=== PATIENT | male | born 1950 | race Caucasian/White ===

== ENCOUNTER 2018-02-20 07:39 | Outpatient (CLI) | payer MEDICARE, OTHER ==
[2018-02-20 12:43] LABS: BASOPHILS % (AUTO) 0.7 %; EOSINOPHILS # (AUTO) 0.3 10^3/uL (0.0-0.7); EOSINOPHILS % (AUTO) 3.5 %; HGB - HEMOGLOBIN 14.3 g/dL (14.0-18.0); LYMPHOCYTES # (AUTO) 1.7 10^3/uL (1.5-3.5); LYMPHOCYTES % (AUTO) 24.1 %; MEAN CORPUSCULAR HEMOGLOBIN 30.9 pg (27.0-31.0); MEAN CORPUSCULAR HGB CONC 32.9 g/dL (32.0-36.0); MEAN CORPUSCULAR VOLUME 93.9 fL (80.0-94.0); MEAN PLATELET VOLUME 9.4 fL (7.4-11.4); MONOCYTES # (AUTO) 0.6 10^3/uL (0.0-1.0); MONOCYTES % (AUTO) 8.7 %; NEUTROPHILS # (AUTO) 4.5 10^3/uL (1.5-6.6); PLT - PLATELET COUNT 224 10^3/uL (130-450); RED BLOOD COUNT 4.61 10^6/uL (4.70-6.10); RED CELL DISTRIBUTION WIDTH 13.8 % (12.0-15.0); WHITE BLOOD COUNT 7.2 x10^3/uL (4.8-10.8)
[2018-02-20 12:46] LABS: ALBUMIN 3.9 g/dL (3.2-5.5); ALKALINE PHOSPHATASE 95 IU/L (42-121); ALT ALANINE AMINOTRANSFERASE 27 IU/L (10-60); AST ASPARTATE AMINOTRANSFERASE 23 IU/L (10-42); BILIRUBIN,TOTAL 0.8 mg/dL (0.2-1.0); BUN - BLOOD UREA NITROGEN 16 mg/dL (6-20); CALCIUM 8.9 mg/dL (8.5-10.3); CARBON DIOXIDE - CO2 25 mmol/L (21-32); CHLORIDE 101 mmol/L (101-111); CHOL/HDL RATIO 3.8 (<5.0); CHOLESTEROL 205 mg/dL; CREATININE 0.8 mg/dL (0.6-1.2); GFR - MDRD 97 (>89); GLUCOSE 110 mg/dL (70-100); HDL CHOLESTEROL 54 mg/dL; LDL CHOLESTEROL,CALCULATED 115 mg/dL; LDL/HDL RATIO 2.1 (<3.6); SODIUM 133 mmol/L (135-145); TOTAL PROTEIN 7.7 g/dL (6.7-8.2); VLDL CHOLESTEROL 36 mg/dL
== END 2018-02-20 07:40 | disposition home or self-care (01) ==
LOC: LAB.WCP 07:39
PROVIDERS: ATTEND Family Medicine
DX: I10 Essential (primary) hypertension (principal); Z12.5 Encounter for screening for malignant neoplasm of prostate
CPT/HCPCS: 36415; 80053; 80061; 84443; 85025; G0103; 83721; 84153

== ENCOUNTER 2019-09-09 09:14 | Outpatient (CLI) | payer MEDICARE, OTHER ==
--- NOTE | 2019-09-09 11:27 | CT Report ---
Reason: DIPLOPIA, DYSPHAGIA Procedure Date: 09/09/2019 Accession Number: [id number] / [id number] Procedure: CT - HEAD WO CPT Code: Final Report FULL RESULT: EXAM: CT HEAD EXAM DATE: 09/09/2019 09:33 AM. CLINICAL HISTORY: DIPLOPIA, DYSPHAGIA. COMPARISON: None. TECHNIQUE: Multiaxial CT images were obtained from the foramen magnum to the vertex. Reformats: Sagittal and coronal. IV contrast: None. In accordance with CT protocol optimization, one or more of the following dose reduction techniques were utilized for this exam: automated exposure control, adjustment of mA and/or KV based on patient size, or use of iterative reconstructive technique. FINDINGS: Parenchyma: No intraparenchymal hemorrhage. No evidence of mass, midline shift, or CT findings of infarction. Juárez-white differentiation is distinct. Moderate patchy hypodensity in the periventricular white matter and centrum semiovale, nonspecific but probably chronic microvascular ischemic change. Extraaxial Spaces: Normal for age. No subdural or epidural collections identified. Ventricles: Normal in size and position. Sinuses and Orbits: Imaged paranasal sinuses, orbits, and mastoids show no significant abnormality. Bones: No evidence of fracture or calvarial defect. Other: Intracranial internal carotid and vertebral artery calcifications are present. IMPRESSION: 1. No definite acute intracranial abnormality. 2. Probable chronic microvascular ischemic changes as noted above. [facility]
== END 2019-09-09 09:15 | disposition home or self-care (01) ==
LOC: DI 09:14
PROVIDERS: ATTEND Family Medicine
DX: H53.2 Diplopia (principal); R13.10 Dysphagia, unspecified
CPT/HCPCS: 70450

== ENCOUNTER 2019-09-23 09:49 | Outpatient (CLI) | payer MEDICARE, OTHER ==
--- NOTE | 2019-09-23 12:25 | XRAY Report ---
Reason: DYSPHAGIA Procedure Date: 09/23/2019 Accession Number: [id number] / [id number] Procedure: FL - Modified Barium Swallow W/SP CPT Code: Final Report FULL RESULT: EXAM: MODIFIED BARIUM SWALLOW EXAM DATE: 09/23/2019 10:34 AM. CLINICAL HISTORY: DYSPHAGIA. COMPARISON: None. TECHNIQUE: Under the direction of speech pathology, patient swallowed various consistencies of barium under lateral fluoroscopic observation of the neck. Fluoroscopy Time: 1 minute 5 seconds. Number of Images: 104. FINDINGS: Swallowing Mechanism: Normal oral phase and swallowing reflex. Airway Protection: Normal epiglottic motion. No episodes of tracheal penetration or aspiration with all consistencies of barium. Pharynx: Normal. No significant vallecular or piriform sinus contrast pooling. Other: None. IMPRESSION: Normal modified barium swallow. No aspiration identified. See formal speech pathology report. [facility]
== END 2019-09-23 09:50 | disposition home or self-care (01) ==
LOC: DI 09:49
PROVIDERS: ATTEND Family Medicine
DX: R13.10 Dysphagia, unspecified (principal)
CPT/HCPCS: 74230

== ENCOUNTER 2020-06-22 16:39 | Outpatient (CLI) | payer MEDICARE, OTHER | END 2020-06-22 16:40 | disposition home or self-care (01) | LOC: COV 16:39 | PROVIDERS: ATTEND Family Medicine | DX: M79.10 Myalgia, unspecified site (principal); R09.81 Nasal congestion; Z20.828 Contact with and (suspected) exposure to other viral communicable diseases ==

== ENCOUNTER 2020-10-24 07:47 | Outpatient (CLI) | payer MEDICARE, OTHER ==
--- NOTE | 2020-10-24 10:53 | CT Report ---
PROCEDURE: Low Dose Lung Cancer Screen INDICATIONS: FORMER SMOKER TECHNIQUE: Noncontrast low-dose 5 mm thick sections acquired from the pulmonary apices to the posterior costophr enic angles. 7 mm thick coronal and sagittal MIP reformats were then acquired. For radiation dose r eduction, the following was used: automated exposure control, adjustment of mA and/or kV according t o patient size. COMPARISON: None. FINDINGS: Image quality: Excellent. Lungs and pleura: No pulmonary nodules. No focal infiltrates. No pleural fluid. Mediastinum: Heart size is normal. Moderately advanced coronary artery calcifications. No pericardia l effusion. No mediastinal adenopathy by size criteria. Thoracic aorta and central pulmonary arteri es are normal in size. Esophagus is normal in caliber. No hiatal hernia. Bones and chest wall: There is subtle lucency in the posterior superior aspect of the T11 vertebral b eddie, of uncertain etiology. No vertebral body compression fractures. No axillary or supraclavicular adenopathy by size criteria. The thyroid is normal in size. Abdomen: Visualized upper abdomen solid organs and bowel loops appear normal in the absence of contr ast. IMPRESSION: 1. LungRads category 1: Negative. No nodules and/or definitely benign nodules. 2. Annual low-dose noncontrast CT of the chest is recommended for lung cancer screening. 3. Clinically significant or potentially clinically significant findings (nonlung cancer): Moderately advanced coronary artery calcifications. Subtle lucency in posterior aspect of the T11 vertebral bod y. Comment: Recommend thoracic spine MRI to better evaluate the lucency in the posterior aspect of the T 11 vertebral body. Reviewed by: Wyatt Barraza MD on 10/24/2020 9:51 AM [facility] Approved by: Wyatt Barraza MD on 10/24/2020 9:51 AM [facility] Station ID: [id number]
== END 2020-10-24 07:48 | disposition home or self-care (01) ==
LOC: DI 07:47
PROVIDERS: ATTEND Family Medicine
DX: Z12.2 Encounter for screening for malignant neoplasm of respiratory organs (principal); Z87.891 Personal history of nicotine dependence

== ENCOUNTER 2021-01-07 08:00 | Outpatient (CLI) | payer MEDICARE, OTHER ==
[2021-01-07 17:49] LABS: BASOPHILS # (AUTO) 0.1 10^3/uL (0.0-0.1); BASOPHILS % (AUTO) 0.7 %; EOSINOPHILS # (AUTO) 0.4 10^3/uL (0.0-0.7); EOSINOPHILS % (AUTO) 3.6 %; HCT - HEMATOCRIT 44.7 % (42.0-52.0); HGB - HEMOGLOBIN 14.3 g/dL (14.0-18.0); LYMPHOCYTES % (AUTO) 17.5 %; MEAN CORPUSCULAR HEMOGLOBIN 30.1 pg (27.0-31.0); MEAN CORPUSCULAR VOLUME 94.1 fL (80.0-94.0); MEAN PLATELET VOLUME 11.1 fL (7.4-11.4); MONOCYTES # (AUTO) 0.8 10^3/uL (0.0-1.0); MONOCYTES % (AUTO) 6.9 %; NEUTROPHILS % (AUTO) 70.8 %; PLT - PLATELET COUNT 232 10^3/uL (130-450); RED BLOOD COUNT 4.75 10^6/uL (4.70-6.10); RED CELL DISTRIBUTION WIDTH 13.5 % (12.0-15.0); WHITE BLOOD COUNT 11.3 x10^3/uL (4.8-10.8)
[2021-01-07 18:13] LABS: ALBUMIN 4.1 g/dL (3.2-5.5); ALBUMIN/GLOBULIN RATIO 1.1 (1.0-2.2); ALKALINE PHOSPHATASE 97 IU/L (42-121); ALT ALANINE AMINOTRANSFERASE 26 IU/L (10-60); AST ASPARTATE AMINOTRANSFERASE 21 IU/L (10-42); BILIRUBIN,TOTAL 0.9 mg/dL (0.2-1.0); BUN - BLOOD UREA NITROGEN 20 mg/dL (6-20); CALCIUM 9.1 mg/dL (8.5-10.3); CARBON DIOXIDE - CO2 26 mmol/L (21-32); CHLORIDE 104 mmol/L (101-111); CHOL/HDL RATIO 2.6 (<5.0); CHOLESTEROL 138 mg/dL; CREATININE 0.7 mg/dL (0.6-1.2); GFR - MDRD 112 (>89); GLUCOSE 91 mg/dL (70-100); HDL CHOLESTEROL 54 mg/dL; LDL CHOLESTEROL,CALCULATED 72 mg/dL; LDL/HDL RATIO 1.3 (<3.6); POTASSIUM 4.8 mmol/L (3.5-5.0); SODIUM 139 mmol/L (135-145); TOTAL PROTEIN 7.7 g/dL (6.7-8.2); TRIGLYCERIDES 59 mg/dL; VLDL CHOLESTEROL 12 mg/dL
[2021-01-07 19:51] LABS: ESTIMATED AVERAGE GLUCOSE 97 mg/dL (70-100)
== END 2021-01-07 23:59 | disposition home or self-care (01) ==
LOC: LAB.WCP 08:00
PROVIDERS: ATTEND Family Medicine
DX: E78.5 Hyperlipidemia, unspecified (principal); R73.01 Impaired fasting glucose; Z12.5 Encounter for screening for malignant neoplasm of prostate; I10 Essential (primary) hypertension
CPT/HCPCS: 36415; 80053; 80061; 83036; 85025; G0103; 83721; 84153

== ENCOUNTER 2021-04-02 07:59 | Day surgery (SDC) | payer MEDICARE, OTHER ==
[~2021-04-02 07:59] MED LIST: LACTATED RINGERS 1,000 ML IV ONE
[2021-04-02] MEDS ORDERED: MIDAZOLAM 2 MG/2 ML VIAL ONE ×2 (08:49→08:50)
[2021-04-02] MEDS ORDERED: fentaNYL 250 MCG/5 ML VIAL ONE (08:50)
--- NOTE | 2021-04-02 09:04 | HISTORY & PHYSICAL EXAMINATION ---
Chief Complaint - Chief Complaint Chief Complaint: here for colon cancer screening History of Present Illness - History Obtained From Records Reviewed: yes History obtained from: pt Exam Limitations: none - History of Present Illness HPI Comment/Other: here for colon cancer screening. History - Past Medical History Cardiovascular: reports: Hypertension, High cholesterol Respiratory: reports: COPD, Sleep apnea Endocrine/Autoimmune: reports: None GI: reports: GERD : reports: None HEENT: reports: Chronic vision loss Psych: reports: None Musculoskeletal: reports: Osteoarthritis Derm: reports: None MRSA Hx?: No - Past Surgical History HEENT: reports: Rhinoplasty Meds/Allgy - Home Medications Home Medications: Ambulatory Orders Medication Instructions Recorded Confirmed Atorvastatin [Lipitor] 20 mg PO DAILY PM 04/01/21 04/01/21 Losartan [Cozaar] 100 mg PO DAILY 04/01/21 04/01/21 - Allergies Allergies/Adverse Reactions: Allergies Allergy/AdvReac Type Severity Reaction Status Date / Time bee venom protein (honey bee) Allergy Anaphylaxis Verified 04/01/21 13:41 Penicillins Allergy Itching Verified 04/01/21 13:41 Review of Systems - Other Findings Other Findings: 10 pt ros as above otherwise unremarkable Exam - Vital Signs Reviewed Vital Signs: Yes Vital Signs: Vital Signs x48h Temp Pulse Resp BP Pulse Ox 04/02/21 08:10 36.1 C L 91 20 168/84 H 96 - Physical Exam General Appearance: positive: No acute distress, Alert Eyes Bilateral: positive: PERRL, EOMI ENT: positive: No signs of dehydration Neck: positive: No JVD, Trachea midline Respiratory: positive: No respiratory distress, Breath sounds nml Cardiovascular: positive: Regular rate & rhythm Abdomen: positive: Non-tender, No distention Neurologic/Psychiatric: positive: Oriented x3 Conclusion/Plan - Problem List (1) Colon cancer screening Conclusion/Plan: plan colonoscopy. parq held and consent obtained
[2021-04-02] MEDS ORDERED: LACTATED RINGERS 1,000 ML IV ONE (09:51)
[2021-04-02 10:03] VITALS: BP 148/92
== END 2021-04-02 08:00 | disposition home or self-care (01) ==
LOC: SDS 07:59
PROVIDERS: ATTEND Surgery
PROC: 0DBN8ZX Excision of Sigmoid Colon, Via Natural or Artificial Opening Endoscopic, Diagnostic (ICD-10-PCS; principal; 2021-04-02 09:00)
DX: Z12.11 Encounter for screening for malignant neoplasm of colon (principal); K57.30 Diverticulosis of large intestine without perforation or abscess without bleeding; K63.5 Polyp of colon; I10 Essential (primary) hypertension; E78.00 Pure hypercholesterolemia, unspecified; J44.9 Chronic obstructive pulmonary disease, unspecified; G47.30 Sleep apnea, unspecified; K21.9 Gastro-esophageal reflux disease without esophagitis; H54.7 Unspecified visual loss; Z79.899 Other long term (current) drug therapy
CPT/HCPCS: 45380; J3010; J7120

== ENCOUNTER 2021-07-19 08:00 | Outpatient (CLI) | payer MEDICARE, OTHER ==
[2021-07-19 12:01] LABS: BASOPHILS # (AUTO) 0.1 10^3/uL (0.0-0.1); BASOPHILS % (AUTO) 1.1 %; EOSINOPHILS # (AUTO) 0.3 10^3/uL (0.0-0.7); HCT - HEMATOCRIT 45.5 % (42.0-52.0); HGB - HEMOGLOBIN 14.6 g/dL (14.0-18.0); LYMPHOCYTES # (AUTO) 1.5 10^3/uL (1.5-3.5); LYMPHOCYTES % (AUTO) 21.5 %; MEAN CORPUSCULAR HEMOGLOBIN 30.3 pg (27.0-31.0); MEAN CORPUSCULAR HGB CONC 32.1 g/dL (32.0-36.0); MEAN CORPUSCULAR VOLUME 94.4 fL (80.0-94.0); MONOCYTES # (AUTO) 0.7 10^3/uL (0.0-1.0); MONOCYTES % (AUTO) 10.4 %; NEUTROPHILS # (AUTO) 4.4 10^3/uL (1.5-6.6); NEUTROPHILS % (AUTO) 62.6 %; PLT - PLATELET COUNT 239 10^3/uL (130-450); RED BLOOD COUNT 4.82 10^6/uL (4.70-6.10); RED CELL DISTRIBUTION WIDTH 14.5 % (12.0-15.0)
[2021-07-19 12:18] LABS: ALBUMIN 3.8 g/dL (3.2-5.5); ALBUMIN/GLOBULIN RATIO 1.2 (1.0-2.2); BILIRUBIN,TOTAL 0.9 mg/dL (0.2-1.0); CALCIUM 9.3 mg/dL (8.5-10.3); CREATININE 0.9 mg/dL (0.6-1.2); POTASSIUM 4.6 mmol/L (3.5-5.0)
== END 2021-07-19 23:59 | disposition home or self-care (01) ==
LOC: LAB.WCP 08:00
PROVIDERS: ATTEND Family Medicine
DX: R10.13 Epigastric pain (principal)
CPT/HCPCS: 36415; 80053; 83690; 85025

== ENCOUNTER 2022-01-05 08:00 | Outpatient (CLI) | payer MEDICARE, OTHER ==
--- NOTE | 2022-01-05 14:50 | XRAY Report ---
PROCEDURE: Chest 2 View X-Ray INDICATIONS: PNEUMONIA TECHNIQUE: 2 view(s) of the chest. COMPARISON: None. FINDINGS: Surgical changes and devices: None. Lungs and pleura: No pleural effusions or pneumothorax. Lungs are clear. Mediastinum: Mediastinal contours are normal. Heart size is normal. Bones and chest wall: No suspicious bony abnormalities. Soft tissues appear unremarkable. There is rightward curvature of the thoracic spine. IMPRESSION: No acute cardiopulmonary abnormality. Reviewed by: Moody Mason on 01/05/2022 2:49 PM PDT Approved by: Moody Mason on 01/05/2022 2:49 PM PDT Station ID: [id number]
== END 2022-01-05 23:59 | disposition home or self-care (01) ==
LOC: DI.N 08:00
PROVIDERS: ATTEND Nurse Practitioner
DX: J18.9 Pneumonia, unspecified organism (principal)

== ENCOUNTER 2022-08-18 08:00 | Outpatient (CLI) | payer MEDICARE, OTHER ==
[2022-08-19 09:32] LABS: BASOPHILS # (AUTO) 0.1 10^3/uL (0.0-0.1); BASOPHILS % (AUTO) 0.7 %; EOSINOPHILS # (AUTO) 0.2 10^3/uL (0.0-0.7); EOSINOPHILS % (AUTO) 3.1 %; HCT - HEMATOCRIT 43.3 % (42.0-52.0); HGB - HEMOGLOBIN 13.1 g/dL (14.0-18.0); LYMPHOCYTES # (AUTO) 1.8 10^3/uL (1.5-3.5); LYMPHOCYTES % (AUTO) 26.6 %; MEAN CORPUSCULAR HEMOGLOBIN 30.4 pg (27.0-31.0); MEAN CORPUSCULAR HGB CONC 30.3 g/dL (32.0-36.0); MEAN CORPUSCULAR VOLUME 100.5 fL (80.0-94.0); MONOCYTES # (AUTO) 0.7 10^3/uL (0.0-1.0); MONOCYTES % (AUTO) 10.3 %; NEUTROPHILS # (AUTO) 4.1 10^3/uL (1.5-6.6); NRBC ABSOLUTE COUNT (AUTO) 0.02 x10^3/uL; NUCLEATED RED BLOOD CELLS AUTO 0.3 /100WBC; PLT - PLATELET COUNT 236 10^3/uL (130-450); RED BLOOD COUNT 4.31 10^6/uL (4.70-6.10); RED CELL DISTRIBUTION WIDTH 15.3 % (12.0-15.0); WHITE BLOOD COUNT 6.9 x10^3/uL (4.8-10.8)
[2022-08-19 10:38] LABS: ALBUMIN 3.5 g/dL (3.2-5.5); ALBUMIN/GLOBULIN RATIO 1.2 (1.0-2.2); BILIRUBIN,TOTAL 1.2 mg/dL (0.2-1.0); CREATININE 0.8 mg/dL (0.6-1.2); POTASSIUM 4.1 mmol/L (3.5-5.0); TOTAL PROTEIN 6.5 g/dL (6.7-8.2)
== END 2022-08-18 23:59 | disposition home or self-care (01) ==
LOC: LAB.N 08:00
PROVIDERS: ATTEND Physician Assistant Medical
DX: R10.9 Unspecified abdominal pain (principal); G89.29 Other chronic pain
CPT/HCPCS: 36415; 80053; 83690; 85025

== ENCOUNTER 2022-08-25 10:43 | Outpatient (CLI) | payer MEDICARE, OTHER ==
[2022-08-25] MEDS ORDERED: iohexoL-300 100 ML VIAL ONE (10:50)
[2022-08-25] MEDS ORDERED: DIATRIZOATE MEGLU/DIATRIZO SOD 30 ML BOTTLE PO ONE ×2 (10:51→12:17)
[2022-08-25] MEDS ORDERED: iohexoL-300 100 ML VIAL IVP ONE (12:17)
--- NOTE | 2022-08-25 16:59 | CT Report ---
PROCEDURE: ABDOMEN/PELVIS W INDICATIONS: ABD PAIN CONTRAST: 100ml Omnipaque 300 TECHNIQUE: After the administration of weight appropriate dose of intravenous contrast, 5 mm thick sections acqu ired from the diaphragms to the symphysis. 5 mm thick coronal and sagittal reformats were acquired. For radiation dose reduction, the following was used: automated exposure control, adjustment of mA and/or kV according to patient size. Oral contrast was also given. COMPARISON: None. FINDINGS: Image quality: Excellent Lung bases: unremarkable Heart: No significant findings. Atherosclerotic calcifications of the coronary arteries. ABDOMEN: Liver: No significant findings. Gallbladder:Unremarkable. Biliary ducts: Unremarkable. No biliary ductal dilatation. Pancreas: Pancreas is normal in contour and homogeneous in enhancement. No peripancreatic inflammati on. Spleen: Unremarkable. Adrenal Glands: There is a 2.3 cm right adrenal hypodense nodule measuring approximately 34 Hounsfie ld units. There is a 1.6 cm left adrenal nodule measuring approximately 31 Hounsfield units. Kidneys and Ureters: Bilateral kidneys demonstrate normal size and enhancement. No hydronephrosis. Bilateral ureters are normal in course and caliber. No perinephric or periureteral stranding. Suspec satya peripelvic cysts in the left kidney. Stomach and Bowel: Stomach, small bowel loops, and colon are unremarkable. Scattered colonic dive rticulosis without acute diverticulitis. Peritoneum: No abnormal intraperitoneal fluid. No free air. Ventral Wall: No hernia. Abdominal Nodes: No retroperitoneal or mesenteric adenopathy by size criteria. Vessels: Aorta and inferior vena cava are normal in size. Scattered atherosclerotic calcifications. PELVIS: Pelvic Organs: Unremarkable as visualized. Bladder: Unremarkable. Urinary bladder wall is normal for degree of distention. Pelvic Nodes: No pathologically enlarged pelvic lymph nodes. Miscellaneous: No inguinal hernias seen. Bones: No acute compression fractures. No suspicious osseous lesions. Multilevel spondylitic limon es of the imaged spine. IMPRESSION: CT abdomen and pelvis without acute abnormalities. Colonic diverticulosis without acute diverticulitis. Indeterminate bilateral adrenal nodules measuring 2.3 cm on the right and 1.6 cm on the left. Recomme nd further characterization with adrenal mass protocol CT or MRI. Atherosclerosis. Reviewed by: Mac Cabello MD on 08/25/2022 4:58 PM PST Approved by: Mac Cabello MD on 08/25/2022 4:58 PM PST Station ID: [id number]
== END 2022-08-25 10:44 | disposition home or self-care (01) ==
LOC: DI 10:43
PROVIDERS: ATTEND Physician Assistant Medical
DX: K57.30 Diverticulosis of large intestine without perforation or abscess without bleeding (principal); E27.9 Disorder of adrenal gland, unspecified; I70.90 Unspecified atherosclerosis
CPT/HCPCS: 74177; Q9963; Q9967

== ENCOUNTER 2022-10-06 08:30 | Outpatient (CLI) | payer MEDICARE, OTHER ==
[2022-10-06 08:49] LABS: BASOPHILS # (AUTO) 0.1 10^3/uL (0.0-0.1); BASOPHILS % (AUTO) 1.1 %; EOSINOPHILS # (AUTO) 0.2 10^3/uL (0.0-0.7); EOSINOPHILS % (AUTO) 3.8 %; HCT - HEMATOCRIT 44.3 % (42.0-52.0); HGB - HEMOGLOBIN 14.1 g/dL (14.0-18.0); LYMPHOCYTES # (AUTO) 1.9 10^3/uL (1.5-3.5); LYMPHOCYTES % (AUTO) 30.9 %; MEAN CORPUSCULAR HEMOGLOBIN 30.7 pg (27.0-31.0); MEAN CORPUSCULAR HGB CONC 31.8 g/dL (32.0-36.0); MEAN CORPUSCULAR VOLUME 96.3 fL (80.0-94.0); MEAN PLATELET VOLUME 9.7 fL (7.4-11.4); MONOCYTES # (AUTO) 0.6 10^3/uL (0.0-1.0); MONOCYTES % (AUTO) 9.4 %; NEUTROPHILS # (AUTO) 3.4 10^3/uL (1.5-6.6); NEUTROPHILS % (AUTO) 54.3 %; PLT - PLATELET COUNT 232 10^3/uL (130-450); RED CELL DISTRIBUTION WIDTH 13.4 % (12.0-15.0); WHITE BLOOD COUNT 6.3 x10^3/uL (4.8-10.8)
[2022-10-06 09:23] LABS: THYROID STIMULATING HORMONE 1.54 uIU/mL (0.34-5.60)
[2022-10-06 09:41] LABS: ALBUMIN 3.8 g/dL (3.2-5.5); ALBUMIN/GLOBULIN RATIO 1.1 (1.0-2.2); ALKALINE PHOSPHATASE 86 IU/L (42-121); ALT ALANINE AMINOTRANSFERASE 25 IU/L (10-60); AST ASPARTATE AMINOTRANSFERASE 22 IU/L (10-42); BILIRUBIN,TOTAL 0.3 mg/dL (0.2-1.0); BUN - BLOOD UREA NITROGEN 25 mg/dL (6-20); CARBON DIOXIDE - CO2 25 mmol/L (21-32); CHLORIDE 103 mmol/L (101-111); CHOL/HDL RATIO 3.9 (<5.0); CHOLESTEROL 203 mg/dL; CREATININE 0.9 mg/dL (0.6-1.2); GFR - MDRD 83 (>89); GLUCOSE 103 mg/dL (70-100); HDL CHOLESTEROL 52 mg/dL; POTASSIUM 4.5 mmol/L (3.5-5.0); SODIUM 138 mmol/L (135-145); TOTAL PROTEIN 7.2 g/dL (6.7-8.2); TRIGLYCERIDES 761 mg/dL
[2022-10-06 09:59] LABS: CREATININE,URINE 124.6 mg/dL; MICROALBUM/CREATININE RATIO,UR 16.9 ug/mg (<30.0); MICROALBUMIN,URINE 2.1 mg/dL (0-300.0)
[2022-10-06 10:31] LABS: LDL CHOLESTEROL,DIRECT 66 mg/dL; LDLD/HDL RATIO 1.3 (<3.6)
[2022-10-06 11:56] LABS: ESTIMATED AVERAGE GLUCOSE 94 mg/dL (70-100); HEMOGLOBIN A1c% 4.9 % (4.27-6.07)
--- NOTE | 2022-10-06 17:12 | XRAY Report ---
PROCEDURE: Knee 3 View BILAT INDICATIONS: ARTHRITIS OF KNEE TECHNIQUE: 3 views of the bilateral knee(s) were acquired. COMPARISON: None. FINDINGS: Bones: No fractures or dislocations. Moderate right medial femoral-tibial compartment osteoarthritis is seen with significant joint space narrowing, subchondral sclerosis and marginal osteophyte format ion. Mild left medial femoral tibial compartment osteoarthritic changes also seen with joint space na rrowing and subchondral sclerosis. No suspicious bony lesions. Soft tissues: No joint effusion. No suspicious soft tissue calcifications. IMPRESSION: Right worse than left bilateral medial femoral tibial compartment osteoarthritis. No fra cture or dislocation. No significant joint effusion. Reviewed by: Bijan Bhakta MD on 10/06/2022 5:11 PM PST Approved by: Bijan Bhakta MD on 10/06/2022 5:11 PM PST Station ID: [id number]
--- NOTE | 2022-10-06 17:13 | XRAY Report ---
PROCEDURE: Hand 3 View BILAT INDICATIONS: ARTHRITIS, HAND BILATERAL TECHNIQUE: 3 views of the hand(s) acquired. COMPARISON: None FINDINGS: Bones: No fractures or dislocations. Osteoarthritic changes are noted throughout bilateral hand and wrist joints with joint space narrowing, subchondral sclerosis and marginal osteophyte formation. No definite bony erosive changes are noted. No suspicious bony lesions. Soft tissues: No suspicious soft tissue calcifications. IMPRESSION: Bilateral hand and wrist joint osteoarthritis. No definite bony erosion is seen. No fracture or dislo cation. Reviewed by: Bijan Bhakta MD on 10/06/2022 5:12 PM PST Approved by: Bijan Bhakta MD on 10/06/2022 5:12 PM PST Station ID: [id number]
[2022-10-14 20:07] LABS: ALDOSTERONE 8.6 ng/dL (0.0-30.0); ALDOSTERONE/RENIN RATIO 6.7 (0.0-30.0); RENIN ACTIVITY PLASMA 1.28 ng/mL/hr (0.167-5.380)
== END 2022-10-06 08:31 | disposition home or self-care (01) ==
LOC: DI 08:30
PROVIDERS: ATTEND Internal Medicine
DX: M19.041 Primary osteoarthritis, right hand (principal); M19.042 Primary osteoarthritis, left hand; M19.031 Primary osteoarthritis, right wrist; M19.032 Primary osteoarthritis, left wrist; E27.8 Other specified disorders of adrenal gland; E78.5 Hyperlipidemia, unspecified; R73.01 Impaired fasting glucose; Z12.5 Encounter for screening for malignant neoplasm of prostate; Z13.29 Encounter for screening for other suspected endocrine disorder; I10 Essential (primary) hypertension
CPT/HCPCS: 36415; 73130; 73562; 80053; 80061; 82043; 82088; 82570; 83036; 83721; 84244; 84443; 85025; G0103; 84153

== ENCOUNTER 2022-10-07 07:43 | Outpatient (CLI) | payer MEDICARE, OTHER | END 2022-10-07 07:44 | disposition home or self-care (01) | LOC: LAB 07:43 | PROVIDERS: ATTEND Internal Medicine | DX: E27.8 Other specified disorders of adrenal gland (principal) | CPT/HCPCS: 36415; 82533 ==

== ENCOUNTER 2022-10-25 08:19 | Outpatient (CLI) | payer MEDICARE, OTHER ==
[~2022-10-25 08:19] MED LIST changes: +GADOBUTROL 15 MMOL/15 ML VIAL ONE; -LACTATED RINGERS 1,000 ML IV ONE
[2022-10-25] MEDS ORDERED: GADOBUTROL 15 MMOL/15 ML VIAL IVP ONE (12:45)
[2022-10-25] MEDS ORDERED: GADOBUTROL 7.5 MMOL/7.5 ML VIAL IVP ONE (13:49)
--- NOTE | 2022-10-26 09:05 | MRI Report ---
PROCEDURE: ABDOMEN W/WO INDICATIONS: ADRENAL NODULE CONTRAST: GADAVIST 11.8ML TECHNIQUE: Coronal ultra fast SE, axial 2D spoiled GE in- and [id number]; axial breath-hold T2 fast SE. Dynam ic axial ultra fast GE during the administration of contrast; post-contrast coronal ultra fast GE or 2D spoiled GE with fat saturation from the hepatic dome to the iliac crests. COMPARISON: CT abdomen pelvis 08/25/2022 FINDINGS: Lung bases: No basal pleural effusions. Solid organs: Previously demonstrated bilateral adrenal nodules demonstrate signal loss on out of pha se imaging typical of lipid rich adenomas. There is diffuse signal loss on [id number] images compat ible with hepatic steatosis. Spleen is normal in size and enhancement. Gallbladder is unremarkable. Biliary system is non dilated. Pancreas is normal in morphology. No definite hydronephrosis. Renal sinus cysts present bilaterally. Nodes and vessels: No retroperitoneal or mesenteric adenopathy by size criteria. Aorta and inferior vena cava are normal in size. Bowel and peritoneum: Unenhanced bowel loops are normal in caliber. No free fluid. IMPRESSION: Previously demonstrated bilateral adrenal nodules demonstrate signal characteristics typical of adeno mas. Reviewed by: Elias Cardenas MD on 10/26/2022 9:04 AM PST Approved by: Elias Cardenas MD on 10/26/2022 9:04 AM PST Station ID: [id number]
== END 2022-10-25 08:20 | disposition home or self-care (01) ==
LOC: DI 08:19
PROVIDERS: ATTEND Internal Medicine
DX: E27.8 Other specified disorders of adrenal gland (principal)
CPT/HCPCS: 74183; A9585

== ENCOUNTER 2022-12-07 08:47 | Outpatient (CLI) | payer MEDICARE, OTHER ==
[2022-12-07 09:30] VITALS: BP 142/98
--- NOTE | 2022-12-07 09:30 | SLEEP CARE CONSULTATION ---
Information from patient questionnaire entered by Rowan Briseno. I have reviewed and concur with the information entered by Rowan Briseno. This document represents the service I personally performed and the decisions made by me, Devi Thompson ARNP. History of Present Illness Service Date and Time: 12/07/2022 0847 Reason for Visit: New patient Chief Complaint: reports: Insomnia, Snoring, Observed pauses in breathing, Fatigue Date of Onset: 20+YRS Usual bedtime: 11PM Time it takes to fall asleep: VARIES Snores at night: Yes Observed to quit breathing while asleep: No Sleeps alone due to snoring: Yes Number of times waking at night: 1-2 Reasons for waking at night: reports: Bathroom, Other (STUFFED UP). 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 His current complaints are fatigue, insomnia, observed pauses in breathing and snoring. He snores very loudly and states he "does not sleep very well". He states he used to be a morning person. He states he worked 20+ years at [employer] 2nd or 3rd shift. 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 He states he normally sleeps in his recliner because after 45 minutes of laying down he will wake up "stuffed up". He has many allergies. 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 Patient is and lives in [place]. Have you smoked in the past 12 months: Yes (mini cigars, last one 2 months ago) Alcohol use: Yes Alcohol amount and frequency: 1 beer daily, night drink 1-2 times a week Caffeine use: Yes Caffeine amount and frequency: 1 cup coffee in morning Family History Family history of sleep disordered breathing: No Family Hx Sleep Apnea: Father: Snoring Allergies and Home Medications Known drug allergies: Yes (PN) Drug allergies reviewed: Yes Home medication list reviewed: Yes (losartan stopped, new BP med, don't know name; atorvastatin; omeprazole) Allergy and home medication list: Allergies bee venom protein (honey bee) Allergy (Verified 12/06/22 13:38) Anaphylaxis Penicillins Allergy (Verified 12/06/22 13:38) Itching Review of Systems Weight loss over past 5 years: 40 Cardiovascular: reports: high blood pressure, have to sleep sitting up Gastrointestinal: denies: heartburn Neurological: denies: headaches, seizure Psychiatric: denies: anxiety, depression Ear/Nose/Throat: reports: nasal congestion, wisdom teeth removed. denies: tonsillectomy Musculoskeletal: reports: joint pain, neck pain, back pain, muscle pain or cramping, mobility problems Immunologic: reports: sneezing, rash, itching, allergies to food or environment Physical Exam Vital signs obtained and entered by: ROWAN Zheng MA Blood Pressure: 142/98 (LEFT ARM) Cuff size: long Heart Rate: 94 O2 Saturation: 97 Height: 6 ft 2 in Weight: 264 lb 3.2 oz Body Mass Index: 33.9 BMI Classification: Obese Neck circumference: 17.25 Mouth and throat: narrow oropharynx Soft palate: long Hard palate: normal Uvula: normal Uvula visualization: 25% Mallampati Class III Tongue: normal in size Tonsils: 1+ Neck: normal w/o lymphadenopathy or thyromegaly Heart: regular rate and rhythm Lungs: clear bilaterally Impression and Plan 1. Suspected Obstructive Sleep Apnea-Hypopnea Syndrome, as suggested by a history of loud and irregular snoring, unrefreshed sleep, cognitive impairment, and excessive daytime sleepiness. Narrow oropharynx and obesity are common predisposing factors for obstructive sleep apnea-hypopnea syndrome. I recommend proceeding to polysomnography to confirm the diagnosis and to assess severity. If the patient has significant sleep disordered breathing, a manual CPAP tit ration study will also be performed to find the optimal treatment pressure. I informed the patient of what the sleep studies involve and after some discussion, obtained agreement to proceed. The pathophysiology of obstructive sleep apnea-hypopnea syndrome was discussed with the patient and health risks of cardiovascular and cerebrovascular disease if not treated. Risks of drowsy driving discussed in detail and patient advised to avoid long distance driving and to candy puller at the first sign of drowsiness. Patient agreed to plan. * Schedule polysomnography +- manual CPAP titration study and return in 1-2 weeks after the study to discuss result and initiate therapy. * Avoid long distance driving or driving when feeling sleepy. * Avoid alcohol, sedative and muscle relaxant around bedtime. * Attempt to lose weight. * Review instructions provided by trained office staff on how to prepare for the sleep study. * Return for follow-up after sleep study completed. Counseling Topics: Weight loss health impact Visit Type: In Office Time Spent with Patient (minutes): 32 Provider Statement: I spent 100% of the Face to Face Visit with the patient with greater than 50% spent counseling the patient and coordination of care.
== END 2022-12-07 08:48 | disposition home or self-care (01) ==
LOC: SC 08:47
PROVIDERS: ATTEND Nurse Practitioner Family
DX: G47.8 Other sleep disorders (principal); G47.10 Hypersomnia, unspecified; R41.89 Other symptoms and signs involving cognitive functions and awareness; R06.83 Snoring
CPT/HCPCS: 99203; G0463; 99212

== ENCOUNTER 2023-02-06 09:59 | Outpatient (CLI) | payer MEDICARE, OTHER ==
[2023-02-06 10:40] LABS: ALBUMIN 4.1 g/dL (3.2-5.5); ALBUMIN/GLOBULIN RATIO 1.2 (1.0-2.2); ALKALINE PHOSPHATASE 68 IU/L (42-121); ALT ALANINE AMINOTRANSFERASE 14 IU/L (10-60); AST ASPARTATE AMINOTRANSFERASE 16 IU/L (10-42); BILIRUBIN,TOTAL 0.9 mg/dL (0.2-1.0); BUN - BLOOD UREA NITROGEN 19 mg/dL (6-20); CALCIUM 9.1 mg/dL (8.5-10.3); CARBON DIOXIDE - CO2 26 mmol/L (21-32); CHLORIDE 105 mmol/L (101-111); CHOL/HDL RATIO 2.8 (<5.0); CHOLESTEROL 182 mg/dL; CREATININE 0.9 mg/dL (0.6-1.2); GFR - MDRD 83 (>89); GLUCOSE 108 mg/dL (70-100); HDL CHOLESTEROL 66 mg/dL; LDL CHOLESTEROL,CALCULATED 81 mg/dL; LDL CHOLESTEROL,DIRECT 101 mg/dL; LDL/HDL RATIO 1.2 (<3.6); POTASSIUM 4.2 mmol/L (3.5-5.0); SODIUM 139 mmol/L (135-145); TOTAL PROTEIN 7.4 g/dL (6.7-8.2); TRIGLYCERIDES 177 mg/dL; VLDL CHOLESTEROL 35 mg/dL
== END 2023-02-06 10:00 | disposition home or self-care (01) ==
LOC: LAB 09:59
PROVIDERS: ATTEND Internal Medicine
DX: E78.5 Hyperlipidemia, unspecified (principal)
CPT/HCPCS: 36415; 80053; 80061; 83721

== ENCOUNTER 2023-07-14 11:30 | Outpatient (CLI) | payer MEDICARE, OTHER ==
--- NOTE | 2023-07-14 12:33 | XRAY Report ---
PROCEDURE: Chest 2 View X-Ray INDICATIONS: ACUTE BRONCHITIS TECHNIQUE: 2 views of the chest were acquired. COMPARISON: 01/05/2022 FINDINGS: Surgical changes and devices: None. Lungs and pleura: No pleural effusions or pneumothorax. Lungs are clear. Mediastinum: Mediastinal contours appear normal. Heart size is normal. Bones and chest wall: No suspicious bony lesions. Overlying soft tissues appear unremarkable. Rig htward curvature of the thoracic spine. IMPRESSION: No acute cardiopulmonary process. Reviewed by: Moody Mason on 07/14/2023 12:32 PM [facility] Approved by: Moody Mason on 07/14/2023 12:32 PM [facility] Station ID: [id number]
== END 2023-07-14 11:45 | disposition home or self-care (01) ==
LOC: DI.N 11:30
PROVIDERS: ATTEND Family Medicine
DX: J20.9 Acute bronchitis, unspecified (principal)

== ENCOUNTER 2023-08-08 13:05 | Outpatient (CLI) | payer MEDICARE, OTHER | END 2023-08-08 13:06 | disposition home or self-care (01) | LOC: LAB 13:05 | PROVIDERS: ATTEND Family Medicine | DX: J20.9 Acute bronchitis, unspecified (principal); Z20.89 Contact with and (suspected) exposure to other communicable diseases | CPT/HCPCS: 87449 ==

== ENCOUNTER 2023-09-08 09:21 | Outpatient (CLI) | payer MEDICARE, OTHER ==
--- NOTE | 2023-09-08 11:16 | XRAY Report ---
PROCEDURE: Chest 2V INDICATIONS: ACUTE COUGH TECHNIQUE: 2 views of the chest were acquired. COMPARISON: Chest and radiographs 07/14/2023 and 01/05/2022 FINDINGS: Surgical changes and devices: None. Lungs and pleura: Mild bilateral interstitial prominence. No focal consolidation. No pleural effusio n or pneumothorax. Mediastinum: Mediastinal contours appear normal. Heart size is normal. Bones and chest wall: No suspicious bony lesions. Overlying soft tissues appear unremarkable. IMPRESSION: Mild bilateral interstitial prominence can be seen in setting of an atypical or viral pneumonia. No f ocal consolidation. Reviewed by: Elias Gonzáles MD on 09/08/2023 11:15 AM PST Approved by: Elias Gonzáles MD on 09/08/2023 11:15 AM PST Station ID: [id number]
== END 2023-09-08 09:22 | disposition home or self-care (01) ==
LOC: DI 09:21
PROVIDERS: ATTEND Physician Assistant Medical
DX: R05.1 Acute cough (principal)

== ENCOUNTER 2023-09-25 07:44 | Outpatient (CLI) | payer MEDICARE, OTHER ==
[2023-09-25 07:57] LABS: BASOPHILS # (AUTO) 0.1 10^3/uL (0.0-0.1); BASOPHILS % (AUTO) 1.1 %; EOSINOPHILS # (AUTO) 0.2 10^3/uL (0.0-0.7); EOSINOPHILS % (AUTO) 3.3 %; HCT - HEMATOCRIT 43.4 % (42.0-52.0); HGB - HEMOGLOBIN 13.8 g/dL (14.0-18.0); LYMPHOCYTES # (AUTO) 2.1 10^3/uL (1.5-3.5); LYMPHOCYTES % (AUTO) 34.6 %; MEAN CORPUSCULAR HEMOGLOBIN 29.5 pg (27.0-31.0); MEAN CORPUSCULAR HGB CONC 31.8 g/dL (32.0-36.0); MEAN CORPUSCULAR VOLUME 92.7 fL (80.0-94.0); MONOCYTES # (AUTO) 0.6 10^3/uL (0.0-1.0); MONOCYTES % (AUTO) 9.3 %; NEUTROPHILS # (AUTO) 3.1 10^3/uL (1.5-6.6); NEUTROPHILS % (AUTO) 51.2 %; PLT - PLATELET COUNT 339 10^3/uL (130-450); RED BLOOD COUNT 4.68 10^6/uL (4.70-6.10); RED CELL DISTRIBUTION WIDTH 15.3 % (12.0-15.0); WHITE BLOOD COUNT 6.1 x10^3/uL (4.8-10.8)
[2023-09-25 08:32] LABS: ALBUMIN/GLOBULIN RATIO 1.4 (1.0-2.2); ALKALINE PHOSPHATASE 61 IU/L (42-121); ALT ALANINE AMINOTRANSFERASE 16 IU/L (10-60); AST ASPARTATE AMINOTRANSFERASE 14 IU/L (10-42); BILIRUBIN,TOTAL 0.3 mg/dL (0.2-1.0); BUN - BLOOD UREA NITROGEN 20 mg/dL (6-20); CALCIUM 9.2 mg/dL (8.5-10.3); CARBON DIOXIDE - CO2 30 mmol/L (21-32); CHLORIDE 105 mmol/L (101-111); CHOL/HDL RATIO 2.6 (<5.0); CHOLESTEROL 149 mg/dL; CREATININE 0.9 mg/dL (0.6-1.3); GFR - MDRD 83 (>89); GLUCOSE 99 mg/dL (74-104); HDL CHOLESTEROL 58 mg/dL; LDL CHOLESTEROL,CALCULATED 39 mg/dL; LDL/HDL RATIO 0.7 (<3.6); SODIUM 141 mmol/L (135-145); TOTAL PROTEIN 6.8 g/dL (6.4-8.9); TRIGLYCERIDES 260 mg/dL (48-352); VLDL CHOLESTEROL 52 mg/dL
[2023-09-25 08:36] LABS: THYROID STIMULATING HORMONE 2.14 uIU/mL (0.34-5.60)
[2023-09-25 11:25] LABS: ESTIMATED AVERAGE GLUCOSE 111 mg/dL (70-100); HEMOGLOBIN A1c% 5.5 % (4.27-6.07)
== END 2023-09-25 07:45 | disposition home or self-care (01) ==
LOC: LAB 07:44
PROVIDERS: ATTEND Internal Medicine
DX: I11.0 Hypertensive heart disease with heart failure (principal); I50.30 Unspecified diastolic (congestive) heart failure; E78.5 Hyperlipidemia, unspecified; R73.01 Impaired fasting glucose; R06.02 Shortness of breath
CPT/HCPCS: 36415; 80053; 80061; 83036; 83721; 83880; 84443; 85025

== ENCOUNTER 2023-12-11 11:30 | Outpatient (CLI) | payer MEDICARE, OTHER ==
--- NOTE | 2023-12-11 17:45 | XRAY Report ---
PROCEDURE: Shoulder 2+V RT INDICATIONS: STRAIN OF MUSCLE(S) AND TENDON(S) OF THE ROTATOR CUFF TECHNIQUE: 3 views of the shoulder were acquired. COMPARISON: None. FINDINGS: Bones: No fractures or dislocations. No suspicious bony lesions. Visualized ribs appear intact. Moderate to severe acromioclavicular and glenohumeral arthritic change. Very minimal particular osteo phytes are present. No erosions. Soft tissues: No suspicious soft tissue calcifications. The visualized lungs are within normal limi ts. IMPRESSION: Glenohumeral and acromioclavicular degenerative change. Reviewed by: Mira Olivares MD on 12/11/2023 5:43 PM PDT Approved by: Mira Olivares MD on 12/11/2023 5:43 PM PDT Station ID: [id number]
== END 2023-12-11 11:45 | disposition home or self-care (01) ==
LOC: DI.N 11:30
PROVIDERS: ATTEND Family Medicine
DX: S46.011A Strain of muscle(s) and tendon(s) of the rotator cuff of right shoulder, initial encounter (principal); M19.011 Primary osteoarthritis, right shoulder

== ENCOUNTER 2024-02-01 08:03 | Outpatient (CLI) | payer MEDICARE, OTHER ==
[2024-02-01] MEDS: ALBUTEROL 1 PUFF INH STA (12:38)
== END 2024-02-01 08:04 | disposition home or self-care (01) ==
LOC: RT 08:03
PROVIDERS: ATTEND Internal Medicine
DX: J44.9 Chronic obstructive pulmonary disease, unspecified (principal)
CPT/HCPCS: 94060; 94729

== ENCOUNTER 2024-03-07 07:15 | Outpatient (CLI) | payer MEDICARE, OTHER ==
--- NOTE | 2024-03-07 16:13 | XRAY Report ---
PROCEDURE: Chest 2V INDICATIONS: SHORTNESS OF BREATH TECHNIQUE: 2 views of the chest were acquired. COMPARISON: Chest radiograph on September 08, 2023. FINDINGS: Surgical changes and devices: None. Lungs and pleura: No pleural effusions or pneumothorax. Subtle bilateral interstitial prominence, no tably in the bilateral lower lobes. No focal pulmonary consolidation. Mediastinum: Mediastinal contours appear normal. Heart size is normal. Aortic arch is calcified, in dicating atherosclerosis Bones and chest wall: No suspicious bony lesions. Overlying soft tissues appear unremarkable. Deg enerative changes of the spine. IMPRESSION: Subtle bilateral interstitial prominence which may reflect early pulmonary edema and/or viral infecti on. No focal pulmonary consolidation. Reviewed by: Star Booker MD on 03/07/2024 4:11 PM PDT Approved by: Star Booker MD on 03/07/2024 4:11 PM PDT Station ID: [id number]
== END 2024-03-07 07:30 | disposition home or self-care (01) ==
LOC: DI.N 07:15
PROVIDERS: ATTEND Physician Assistant
DX: R06.02 Shortness of breath (principal)

== ENCOUNTER 2024-04-17 07:23 | Outpatient (CLI) | payer MEDICARE, OTHER ==
[2024-04-17 07:54] LABS: POTASSIUM 3.8 mmol/L (3.5-4.5)
[2024-04-17 08:04] LABS: THYROID STIMULATING HORMONE 1.76 uIU/mL (0.34-5.60)
[2024-04-17 08:21] LABS: ESTIMATED AVERAGE GLUCOSE 103 mg/dL (70-100); HEMOGLOBIN A1c% 5.2 % (4.27-6.07)
== END 2024-04-17 07:24 | disposition home or self-care (01) ==
LOC: LAB 07:23
PROVIDERS: ATTEND Internal Medicine
DX: R73.01 Impaired fasting glucose (principal); Z12.5 Encounter for screening for malignant neoplasm of prostate; R53.83 Other fatigue
CPT/HCPCS: 36415; 80048; 83036; 84443; G0103; 84153

== ENCOUNTER 2024-08-05 12:56 | Observation (INO) ==
[2024-08-05 13:50] LABS: BASOPHILS # (AUTO) 0.1 10^3/uL (0.0-0.1); BASOPHILS % (AUTO) 1.3 %; EOSINOPHILS # (AUTO) 0.1 10^3/uL (0.0-0.7); EOSINOPHILS % (AUTO) 1.9 %; HCT - HEMATOCRIT 38.7 % (42.0-52.0); HGB - HEMOGLOBIN 12.8 g/dL (14.0-18.0); LYMPHOCYTES # (AUTO) 1.5 10^3/uL (1.5-3.5); LYMPHOCYTES % (AUTO) 28.5 %; MEAN CORPUSCULAR HEMOGLOBIN 32.4 pg (27.0-31.0); MEAN CORPUSCULAR HGB CONC 33.1 g/dL (32.0-36.0); MEAN PLATELET VOLUME 9.5 fL (7.4-11.4); MONOCYTES # (AUTO) 0.5 10^3/uL (0.0-1.0); NEUTROPHILS % (AUTO) 57.7 %; PLT - PLATELET COUNT 189 10^3/uL (130-450); RED BLOOD COUNT 3.95 10^6/uL (4.70-6.10); RED CELL DISTRIBUTION WIDTH 15.5 % (12.0-15.0); WHITE BLOOD COUNT 5.2 x10^3/uL (4.8-10.8)
[2024-08-05 14:11] LABS: ALBUMIN 3.5 g/dL (3.2-5.5); ALBUMIN/GLOBULIN RATIO 1.3 (1.0-2.2); BILIRUBIN,TOTAL 0.9 mg/dL (0.2-1.0); CALCIUM 8.4 mg/dL (8.5-10.3); CREATININE 1.1 mg/dL (0.6-1.3); ETOH - ETHANOL 261.1 mg/dL; POTASSIUM 3.6 mmol/L (3.5-4.5); TOTAL PROTEIN 6.3 g/dL (6.4-8.9)
--- NOTE | 2024-08-05 14:25 | PROVIDER PROGRESS NOTE ---
Progress Note Progress Note Progress Note: This is a History and Physical. Document was started in another encounter incorrectly. That document was deleted after I [id number] and put into progress note here. Chief Complaint Chief Complaint Chief Complaint: Near fall and low BP from dizziness after completing cardiopulmonary rehab History of Present Illness Admitted From Admitted From:: Cardiopulmonary rehab History Obtained From Records Reviewed: expanse and mela History obtained from: patient Exam Limitations: none History of Present Illness HPI Comment/Other: The patient is a 73-year-old white male who was in cardiopulmonary rehab today doing his pulmonary rehab. Cardiopulmonary nurse called me to say that he was with a systolic of 99 when he started exercise. He became lightheaded, woozy, not walking well on the treadmill and his repeat blood pressure was 77. He admits that his vision is tunneling. He feels lightheaded. He has not had anything to eat today. His last meal was yesterday but he cannot remember what he ate. He went to his grandsons birthday democrat in [facility]. Drove himself there and back. He forgot his medications at home on Monday the . So he has not had his CANDY inhibitor or beta-servando since Monday (today is Monday). On my examination the gentleman required to 2 standby assists to hold onto his arms and balance him. He was exhausted. Alert and oriented. No respiratory distress. Skin warm and dry. But clearly fatigued. Slightly tachycardic in the 90s. And oral mucosa was very, very dry with lips very cracked. My assessment is that he has near syncope with orthostatic hypotension and I need to do further evaluation. He denies fever, cough, congestion. He has not had any recent illnesses. 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 He has COPD and is a former smoker. He denies any sore throat, eustachian tube dysfunction. Runny nose. He is having up to 7 bowel movements a day and he cannot figure out why. Loose but not diarrhea. No blood in them. Has abdominal pain, nausea, with last food intake yesterday. He was seen by gastroenterology in September 2022 for increasing abdominal discomfort for 6 months. Chronic intermittent dysphagia. Reflux. He tried Pepto-Bismol and Mylanta back then and it may have helped a bit he was not sure. Probiotics were taken and it gave him bowel movements up to 10 a day. Coughing makes it worse. CT scan in August showed bilateral adrenal nodules and colonic diverticulosis. He did not have urgency, frequency dysuria or hematuria. He was seen by [facility], Dr. Mccann, and had an EGD. They were looking for esophageal stricture, peptic disease. He said that ever since they did the EGD, he has symptoms of gradually improved. He has a history of hypertension and hyperlipidemia. He began having dyspnea in the spring 2023. His in 2022, he readily admits that he misses her tremendously. It has been hard. Has insomnia because of this. Low-grade sadness all the time. He drinks 2 vodka drinks a night before he goes to bed to get himself to sleep. He had a stress test in September 2023 that was low risk, probably normal study with normal LV function. An echocardiogram November 03, 2023 had mildly increased left ventricular thickness, concentric, with normal size, normal wall motion, and normal systolic ejection fraction of 60 to 65%. Mid and upper normal right ventricular size with normal function. He was evaluated by [facility] cardiology clinics in December 2023 and it was recommended by Dr. Tracey Carlton that he stay compliant with his medications, slowly increase activity level, eat healthy and lose some weight. SH: Drinking 2 vodka drinks the night before he goes to sleep to help with insomnia. In 2008 he was drinking more than 4 drinks a day. No history of cirrhosis. No history of withdrawal, seizures, ataxia. He started smoking at the age of 17 and quit smoking in 2004, resumed and then again quite 2-21. Nox hx of withdrawal or seizures. 1 pack/day. Meds/Allgy Home Medications Ambulatory Orders Medication Instructions Recorded Confirmed atorvastatin 20 mg tablet 20 mg PO DAILY PM 04/01/21 07/17/24 epinephrine 0.3 mg/0.3 mL 0.3 mg IM Q10M PRN 07/17/24 07/17/24 injection, auto-injector (EpiPen 2-Tobias) fenofibrate 160 mg tablet 160 mg PO QDAY 07/17/24 07/17/24 furosemide 20 mg tablet 20 mg PO QDAY 07/17/24 07/17/24 irbesartan 300 1 tab PO QDAY 07/17/24 07/17/24 mg-hydrochlorothiazide 12.5 mg tablet metoprolol succinate 50 mg 50 mg PO QDAY 07/17/24 07/17/24 tablet,extended release 24 hr umeclidinium 62.5 mcg-vilanterol 1 inh inhalation QDAY 07/17/24 07/17/24 25 mcg/actuation powdr for inhalation (Anoro Ellipta) doxepin 6 mg tablet 6 mg PO HS PRN insomnia #30 tabs 07/19/24 07/19/24 Prevagen 2 tab PO QDAY #20 tabs 07/20/24 07/20/24 acetaminophen 650 mg 650 - 1,300 mg (1 - 2 x 650 mg) PO 07/20/24 07/20/24 tablet,extended release (Tylenol Q8H PRN pain #90 tabs Arthritis Pain) albuterol sulfate 90 mcg/actuation 2 puff inhalation QID PRN 07/20/24 07/17/24 aerosol inhaler (Ventolin HFA) shortness of breath or wheezing cartilage 40 mg-collagen II 10 1 tab PO QDAY #90 tabs 07/20/24 07/20/24 mg-boron 5 mg-hyaluronate 3.3 mg tablet ([employer]) krill 500 mg-omega 3 115 mg-dha 30 1 cap PO QDAY #30 caps 07/20/24 07/20/24 mg-epa 64 by-apntzly-yxbet capsule (MegaRed [place]-3 Krill Oil) zdcsqzmx-[id number] 300 mcg-K 60 1 tab PO QDAY #30 tabs 07/20/24 07/20/24 mcg-lycop 600 mcg-lutein 300 mcg tablet (Centrum Silver Ultra Men's) pantoprazole 40 mg tablet,delayed 40 mg PO QDAY #90 tabs 07/20/24 07/20/24 release sertraline 100 mg tablet 50 mg (1/2 x 100 mg) PO QDAY #90 07/20/24 07/20/24 tabs Allergies Allergies Allergy/AdvReac Type Severity Reaction Status Date / Time bee venom protein (honey bee) Allergy Severe Anaphylaxis Verified 07/19/24 09:10 Penicillins Allergy Severe Itching Verified 07/19/24 09:10 sulfamethoxazole (From Allergy Severe Hives Verified 07/19/24 09:10 Bactrim) trimethoprim (From Bactrim) Allergy Severe Hives Verified 07/19/24 09:10 ON LICENSE OF [facility] Medical History Medical History (Updated 08/05/24 @ 13:42 by Phoebe Capellan MD) 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 01/2009 MRI w DJD, DDD, T11 abnml signal, ?bony mets, 03/2009 had bone scan and intense radio-upt entire vertebral body suggestive of Pagets. Seen by [facility] for possible biphosphonates. Based on the alk phos level, he did not get biphosphonate Dysphagia chronic/progressive for months. asso w asp and cough. Swallow study nml 09/2019. seen by ENT 02/2020. chronic nasal obs. Depression Chronic obstructive pulmonary disease Arthritis of both hands Snoring Did not schedule sleep-study after consult in 2022Sigmoid diverticulosis Adrenal nodule MRI in 2022 w/ typical appearing adenomasBasal cell carcinoma nose Grief reaction acute-'s in ERD (gastroesophageal reflux disease) Mixed hyperlipidemia Fasting hyperglycemia PVC's (premature ventricular contractions) Essential (primary) hypertension History of cigarette smoking Left calcaneal fracture Surgical History Surgical History H/O esophagogastroduodenoscopy 09/2022, mild chronic inflammationH/O colonoscopy 03/2021, hyperplastic polyp + sigmoid diverticulosisH/O reduction of closed fracture 04/2010, left subtalar fracture, non-op RX for calcaneous + cuboid fracturesH/O colonoscopy 07/2008, hyperplastic polypH/O sinus surgery x2 Family History Family History (Updated 08/05/24 @ 13:50 by Phoebe Capellan MD) Father CVA (cerebral vascular accident) Mother Cancer Brother Pulmonary embolism Brother Carbon monoxide poisoning Son Well adult exam Daughter Well adult exam Social History Social History (Updated 08/05/24 @ 13:52 by Phoebe Capellan MD) Smoking Status: Unknown if ever smoked If you are a former smoker, when did you quit? (Date/Year): 2020 Number of Years Smoked: 40 How many cigarettes a day do you smoke? (20 cigarettes=1 Pk): 20 Second hand tobacco smoke exposure: No Do you dip or chew tobacco?: No Do you vape?: No Living arrangement: At home Marital Status: Living Condition: Alone Support Person: Yes Relationship: Friend Living [place] Son in [facility], daughter here [place] Physical Activity: None Level: Independent Physical - Functional Details: Fallen several times this year due to lack of balance. No cane, no walker. Drives a car. Still pays bills. Still does yard work. Do you feel safe in your home environment?: Yes Suffered physical, verbal, emotional, or financial abuse?: No History of Abuse: No ETOH Use: Beer and Liquor Frequency: Daily Number of Amount/day: 2 - 4 ETOH Use Details: has one beer with neighbor daily "beer-thirty", 2 vodkas a night before bed Substance Use: denies use Are you sexually active?: No Occupation: [employer] then [employer], [employer] Retired: Yes Service: Yes POLST Patient has POLST: No , he is Full code Review of Systems Constitutional Reports: Fatigue (this morning, can't get awake), Night sweats (and day sweats for the last year) and Weight loss (Delib trying. 247 (06/2020). 281 (11/2021). 263 (04/2024)); Denies: Fever, Chills or Weakness Eyes Reports: Other (narrowing of vision with this fatigue and low BP) Ears, nose, mouth, and throat Reports: Hearing loss, Nasal congestion, Nasal obstruction, Difficulty swallowing (in the past) and Neck pain Cardiovascular Reports: lightheadedness and shortness of breath with exertion (today with exercise); Denies: chest pain, palpitations, edema, swelling of feet/ankles, Syncope, shortness of breath when lying down, Decreased exercise tolerance, leg pain with exertion or bluish discoloration of hands/feet Respiratory Reports: Shortness of breath (today with exercise); Denies: Cough, Sputum production, Change in phlegm color or Wheezing Gastrointestinal Reports: Difficulty swallowing (in the past) and Change in bowel habits (7 bm's a day this last year, no reason why); Denies: Abdominal pain, Abdominal distention, Nausea, Vomiting, Poor appetite, Bile emesis, Buster blood emesis or Diarrhea Genitourinary Denies: Painful urination, Incontinence, Urinary frequency, Urinary urgency, Nocturia or Blood in urine Musculoskeletal Reports: Back pain, Neck pain, Extremity pain, Joint pain and Stiffness Integumentary/Breast Denies: Rash, Itching, Skin pain or Changing lesion Neurological Reports: Lack of coordination (Fallen several times this year. Starting to go up stairs sideways); Denies: Headache, General weakness, Focal weakness, Weakness in extremities, Numbness in extremities, Memory problems, Difficulty communicating thoughts or Seizure-like activity Psychiatric Reports: Depression, Change in sleep pattern and Difficulty concentrating; Denies: Anxiety, Mood swings, Panic attacks, Irritability, Paranoia, Visual hallucinations, Auditory hallucinations, Tactile hallucinations or Suicidal ideation Endocrine Reports: Fatigue (this morning, can't get awake) and Excessive sweating Hematologic/Lymphatic Denies: Anemia Allergic/Immunologic Denies: Wheezing Prior Level of Functionality: drove to and from [place] this weekend, does yard work, pays bills, doesn't use DME. But is falling this year, Conclusion/Plan 1. Near syncope. With orthostatic hypotension. My suspicion is that he is dehydrated. Did not eat today. Cannot remember his last food intake yesterday. He thinks he ate breakfast and lunch at his son's house but then drove home. He is fairly clear that he did not take any of his blood pressure medicines since Monday (today is Monday) which I am grateful for because I told him that he has enough low blood pressure that if he taken his pills he might of passed out. I am also smelling alcohol on his breath. Plan: Observation status Banana bag at 250 cc an hour for 1 L and then a second liter of normal saline Stat CBC and CMP Stat MUDDs screen Stat alcohol screen After evaluation of labs and his response to fluids, he may be able to be discharged. 2. Dehydration on exam IVF as above.
[2024-08-05 14:40] VITALS: TEMP 97.9
[2024-08-05] MEDS: MULTIVITAMIN 10 ML, THIAMINE INJ 100 MG, FOLIC ACID INJ 1 MG in SODIUM CHLORIDE 0.9% 1,... IV ONE (14:59)
[2024-08-05] MEDS: SODIUM CHLORIDE FLUSH 0.9% 10 ML SYRINGE IVP PRN (14:59)
[2024-08-05] MEDS: SODIUM CHLORIDE FLUSH 0.9% 10 ML SYRINGE IVP SCH (16:16)
--- NOTE | 2024-08-05 16:21 | PHARMACY PROGRESS NOTE ---
Best Possible Medication History Admit Date and Time: 08/05/24 1305 Home Medications Medication Instructions Recorded Confirmed Type epinephrine 0.3 mg/0.3 mL 0.3 mg IM ONCE PRN anaphylaxis 07/17/24 08/05/24 History injection, auto-injector (EpiPen 2-Tobias) irbesartan 300 1 tab PO QDAY 07/17/24 08/05/24 History mg-hydrochlorothiazide 12.5 mg tablet metoprolol succinate 50 mg 50 mg PO QDAY 07/17/24 08/05/24 History tablet,extended release 24 hr doxepin 6 mg tablet 6 mg PO HS PRN insomnia #30 tabs 07/19/24 08/05/24 Rx acetaminophen 650 mg 650 - 1,300 mg (1 - 2 x 650 mg) PO 07/20/24 08/05/24 Rx tablet,extended release (Tylenol Q8H PRN pain #90 tabs Arthritis Pain) albuterol sulfate 90 mcg/actuation 2 puff inhalation QID PRN 07/20/24 08/05/24 History aerosol inhaler (Ventolin HFA) shortness of breath or wheezing cartilage 40 mg-collagen II 10 1 tab PO QDAY #90 tabs 07/20/24 08/05/24 Rx mg-boron 5 mg-hyaluronate 3.3 mg tablet ([employer]) [id number]-khxpk 300 mcg-K 60 1 tab PO QDAY #30 tabs 07/20/24 08/05/24 Rx mcg-lycop 600 mcg-lutein 300 mcg tablet (Centrum Silver Ultra Men's) pantoprazole 40 mg tablet,delayed 40 mg PO QDAY #90 tabs 07/20/24 08/05/24 Rx release sertraline 100 mg tablet 50 mg (1/2 x 100 mg) PO QDAY #90 07/20/24 08/05/24 Rx tabs Prevagen 1 tab PO QDAY 08/05/24 08/05/24 History albuterol sulfate 2.5 mg/3 mL 2.5 mg inhalation Q4H PRN 08/05/24 08/05/24 History (0.083 %) solution for nebulization shortness of breath or wheezing Processed by: Pharmacy Medications reviewed in ED?: No Medication History completed: Yes Patient Interview: Completed Secondary Source(s): Physician records and Insurance records [facility] Statement: Patient reports his atorvastatin and fenofibrate were stopped a while ago because his numbers "looked good." He says the only inhaler/neb he uses is albuterol prn. As the person ultimately responsible for medication therapy, providers are able to order a medication from an existing home medication list in [facility] via the "Reconcile Routine" prior to Confirmation of that medication by retail support associate. Such practice is discouraged except when the physician, in their clinical judgment, deems that a medical need exists for a medication without regard to previous use.
[2024-08-05 16:27] VITALS: BP 118/65; O2SAT 97
--- NOTE | 2024-08-05 18:54 | Discharge Summary ---
Discharge Summary Admit Date: 08/05/24 Discharge Date: 08/05/24 Discharging Provider: Phoebe Capellan MD Primary Care Provider: Austin Webster MD Code Status: Attempt Resuscitation DIAGNOSES Discharge Diagnoses with Status of Each Condition: 1 orthostatic hypotension 2. Dehydration 3. Acute alcohol intoxication HPI History of Present Illness: The patient is a 73-year-old white male who was in cardiopulmonary rehab today doing his pulmonary rehab. Cardiopulmonary nurse called me to say that he was with a systolic of 99 when he started exercise. He became lightheaded, woozy, not walking well on the treadmill and his repeat blood pressure was 77. He admits that his vision is tunneling. He feels lightheaded. He has not had anything to eat today. His last meal was yesterday but he cannot remember what he ate. He went to his grandsons birthday republican in [facility]. Drove himself there and back. He forgot his medications at home on Monday the . So he has not had his CANDY inhibitor or beta-servando since Monday (today is Monday). On my examination the gentleman required to 2 standby assists to hold onto his arms and balance him. He was exhausted. Alert and oriented. No respiratory distress. Skin warm and dry. But clearly fatigued. Slightly tachycardic in the 90s. And oral mucosa was very, very dry with lips very cracked. My assessment is that he has near syncope with orthostatic hypotension and I need to do further evaluation. He denies fever, cough, congestion. He has not had any recent illnesses. 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 He has COPD and is a former smoker. He denies any sore throat, eustachian tube dysfunction. Runny nose. He is having up to 7 bowel movements a day and he cannot figure out why. Loose but not diarrhea. No blood in them. Has abdominal pain, nausea, with last food intake yesterday. He was seen by gastroenterology in September 2022 for increasing abdominal discomfort for 6 months. Chronic intermittent dysphagia. Reflux. He tried Pepto-Bismol and Mylanta back then and it may have helped a bit he was not sure. Probiotics were taken and it gave him bowel movements up to 10 a day. Coughing makes it worse. CT scan in August showed bilateral adrenal nodules and colonic diverticulosis. He did not have urgency, frequency dysuria or hematuria. He was seen by [facility], Dr. Mccann, and had an EGD. They were looking for esophageal stricture, peptic disease. He said that ever since they did the EGD, he has symptoms of gradually improved. He has a history of hypertension and hyperlipidemia. He began having dyspnea in the spring 2023. His in 2022, he readily admits that he misses her tremendously. It has been hard. Has insomnia because of this. Low-grade sadness all the time. He drinks 2 vodka drinks a night before he goes to bed to get himself to sleep. He had a stress test in September 2023 that was low risk, probably normal study with normal LV function. An echocardiogram November 03, 2023 had mildly increased left ventricular thickness, concentric, with normal size, normal wall motion, and normal systolic ejection fraction of 60 to 65%. Mid and upper normal right ventricular size with normal function. He was evaluated by [facility] cardiology clinics in December 2023 and it was recommended by Dr. Tracey Carlton that he stay compliant with his medications, slowly increase activity level, eat healthy and lose some weight. SH: Drinking 2 vodka drinks the night before he goes to sleep to help with insomnia. In 2008 he was drinking more than 4 drinks a day. No history of cirrhosis. No history of withdrawal, seizures, ataxia. He started smoking at the age of 17 and quit smoking in 2004, resumed and then again quite 2-21. Nox hx of withdrawal or seizures. 1 pack/day. HOSPITAL COURSE Hospital Course: I examined the patient and found him to have orthostatic hypotension with dehydration. When he would stand up his vision with tunnel and he would get lightheaded. Blood work showed normal renal function, normal CBC, but his alcohol level was 261.1. Legal intoxication is at 100. I explained to him that he must have been drinking more than he realized. He keeps on insisting that he only had 2 drinks of vodka last night before bedtime. I explained to him about metabolism, and with this level, if he really did not drink after bedtime, he must have drank quite a bit of alcohol before bedtime. Not just 2 drinks. After a liter of a banana bag with normal saline and B12 vitamins, the patient's blood pressure slowly started coming up. Orthostatics were checked before he left and they were normal. I advised him that he was legally intoxicated this morning. That he may be drinking more than he realizes in the midst of his grief reaction. I am asking him to please stop drinking completely. Share this information with his primary care provider and his children to see if they can get help for him. At discharge blood pressure was And he is no longer orthostatic. He is an alert and oriented male. Quiet affect. Cooperative, normal speech patterns. Acne rosacea of nose. Neck is shotty adenopathy but supple. No bruits or JVD. Lungs are clear. He has increased AP diameter of the chest wall with slightly prolonged I:E ratio on exhalation but no wheezing, no crackles or rhonchi. Is a regular rate and rhythm. The abdomen is protuberant, soft, nontender. Extremities do not have any edema. To go from sitting to standing without any ataxia or swaying. Finger-nose is normal. No tremors. He is oriented to person, place, time and situation. ALLERGIES Allergies Allergy/AdvReac Type Severity Reaction Status Date / Time bee venom protein (honey bee) Allergy Severe Anaphylaxis Verified 07/19/24 09:10 Penicillins Allergy Severe Itching Verified 07/19/24 09:10 sulfamethoxazole (From Allergy Severe Hives Verified 07/19/24 09:10 Bactrim) trimethoprim (From Bactrim) Allergy Severe Hives Verified 07/19/24 09:10 MEDICATIONS Ambulatory Orders Medication Instructions Recorded Confirmed epinephrine 0.3 mg/0.3 mL 0.3 mg IM ONCE PRN anaphylaxis 07/17/24 08/05/24 injection, auto-injector (EpiPen 2-Tobias) irbesartan 300 1 tab PO QDAY 07/17/24 08/05/24 mg-hydrochlorothiazide 12.5 mg tablet metoprolol succinate 50 mg 50 mg PO QDAY 07/17/24 08/05/24 tablet,extended release 24 hr doxepin 6 mg tablet 6 mg PO HS PRN insomnia #30 tabs 07/19/24 08/05/24 acetaminophen 650 mg 650 - 1,300 mg (1 - 2 x 650 mg) PO 07/20/24 08/05/24 tablet,extended release (Tylenol Q8H PRN pain #90 tabs Arthritis Pain) albuterol sulfate 90 mcg/actuation 2 puff inhalation QID PRN 07/20/24 08/05/24 aerosol inhaler (Ventolin HFA) shortness of breath or wheezing cartilage 40 mg-collagen II 10 1 tab PO QDAY #90 tabs 07/20/24 08/05/24 mg-boron 5 mg-hyaluronate 3.3 mg tablet (Qustreet) [id number] 300 mcg-K 60 1 tab PO QDAY #30 tabs 07/20/24 08/05/24 mcg-lycop 600 mcg-lutein 300 mcg tablet (Centrum Silver Ultra Men's) pantoprazole 40 mg tablet,delayed 40 mg PO QDAY #90 tabs 07/20/24 08/05/24 release sertraline 100 mg tablet 50 mg (1/2 x 100 mg) PO QDAY #90 07/20/24 08/05/24 tabs Prevagen 1 tab PO QDAY 08/05/24 08/05/24 albuterol sulfate 2.5 mg/3 mL 2.5 mg inhalation Q4H PRN 08/05/24 08/05/24 (0.083 %) solution for nebulization shortness of breath or wheezing LABS 08/05/24 13:44 08/05/24 13:44 TIME SPENT Time Spent in Discharge (Minutes): 25 Discharge Plan Discharge Patient Disposition: 01 Home, Self Care Condition: Fair Medically Cleared Date:: 08/05/24 Prescriptions: Continued albuterol sulfate 2.5 mg /3 mL (0.083 %) solution for nebulization 2.5 mg inhalation Q4H PRN (Reason: shortness of breath or wheezing) Patient Comments: USE 1 VIAL PER NEBULIZER EVERY 4 HOURS NEEDED FOR COUGH WHEEZE OR SHORTNESS OF BREATH Prevagen tablet 1 tab PO QDAY irbesartan-hydrochlorothiazide 300-12.5 mg tablet 1 tab PO QDAY metoprolol succinate 50 mg tablet extended release 24 hr 50 mg PO QDAY epinephrine [EpiPen 2-Tobias] 0.3 mg/0.3 mL auto-injector 0.3 mg IM ONCE PRN (Reason: anaphylaxis) Rx Instructions: Use 1 pen injector intramuscularly single dose as needed for severe allergic reaction according to donor services specialist. allergic to bees doxepin 6 mg tablet 6 mg PO HS PRN (Reason: insomnia) Qty: 30 2RF albuterol sulfate [Ventolin HFA] 90 mcg/actuation HFA aerosol inhaler 2 puff inhalation QID PRN (Reason: shortness of breath or wheezing) pantoprazole 40 mg tablet,delayed release (DR/EC) 40 mg PO QDAY Qty: 90 3RF acetaminophen [Tylenol Arthritis Pain] 650 mg tablet extended release 650 - 1,300 mg PO Q8H PRN (Reason: pain) Qty: 90 0RF Joint Health 40-10-5-3.3 mg tablet 1 tab PO QDAY Qty: 90 0RF Centrum Silver Ultra Men's [id number] mcg tablet 1 tab PO QDAY Qty: 30 0RF sertraline 100 mg tablet 50 mg PO QDAY Qty: 90 0RF Diet: Regular Health Concerns: You just finished your exercise for pulmonary rehab when the nurses noted that you were very unsteady on your feet, you were lightheaded, and vision was becoming tunneled. They checked your blood pressure. Normal blood pressure for you appears to be in the 120s on the top. Before exercise, your blood pressure was 99. After exercise your blood pressure was 77. We call that hypotension. That can be dangerous because you can faint or pass out with a low blood pressure. You had forgotten you medicines at home on Monday when you drove to see you son and grandson, and you had not taken any of your medicine Monday and Monday. Today is Monday. After speaking to you, I decided that you were very dehydrated, had not been eating well, and I brought you in for observation to make sure nothing else was going on . In doing your evaluation your lab work showed no anemia, kidney function normal, 1 mildly abnormal liver function study, but you were legally intoxicated with an alcohol level of 261.1 mg/dL. Legal intoxication occurs at 100 mg/dL. At the level you are at, alertness is lost, you can be sleepy and lethargic. Effort is needed to maintain emotional and motor control. I found you to be drowsy, and slow but appropriate in your emotions and actions. Once I gave you IV fluids with B vitamins, and gave you time to sober up, you improved to have a normal blood pressure. One of the ways I can tell you were dehydrated was the very dry and cracked lips, and very dry mouth lining you had when I examined you. That was resolved by the time I discharged you. Instructions for discharge: 1. Please see your primary care provider in follow-up to adjust your blood pressure medications because you may need that 2. Please stop drinking alcohol completely and let your doctor know you need help sleeping. 3. Please share this with your family and your DPOA since they may need to help you in the coming months. 4. Condolences on the loss of your . I know that she in 2022 and it is a very recent heart ache for you. Print Language: Latvian Patient Instructions: Addiction Alcohol Signs, Addiction Social Use Signs, ED Alcohol Intoxication Follow-up Care: Austin eWbster MD [Primary Care Provider] -
== END 2024-08-05 19:15 | disposition home or self-care (01) ==
LOC: MS2 13:05 → INTOOBSV 13:05
PROVIDERS: ADMIT Specialist; ATTEND Specialist
DX: I10 Essential (primary) hypertension; E86.0 Dehydration; Y90.8 Blood alcohol level of 240 mg/100 ml or more; L71.9 Rosacea, unspecified; R11.0 Nausea; I95.1 Orthostatic hypotension; J44.9 Chronic obstructive pulmonary disease, unspecified; F10.129 Alcohol abuse with intoxication, unspecified; G47.00 Insomnia, unspecified; E78.5 Hyperlipidemia, unspecified; F32.A Depression, unspecified; Z87.891 Personal history of nicotine dependence; K21.9 Gastro-esophageal reflux disease without esophagitis; R10.9 Unspecified abdominal pain; Z91.81 History of falling

== ENCOUNTER 2025-06-11 23:39 | Inpatient (IN) ==
--- OUTSIDE RECORDS SUMMARY | 2025-06-11 23:52 | EXTERNAL MEDICAL SUMMARY RPT | Continuity of Care Document ---
Author Organization [facility] Address [address] [place] [id number] Phone Problems date description facility 2025-03-13 14:53 Essential (primary) hypertensio n [facility] Social History date description facility
[2025-06-11 23:56] LABS: HCT - HEMATOCRIT 40.1 % (42.0-52.0); HGB - HEMOGLOBIN 13.9 g/dL (14.0-18.0); MEAN PLATELET VOLUME 11.4 fL (7.4-11.4); NRBC ABSOLUTE COUNT (AUTO) 0.00 x10^3/uL; NUCLEATED RED BLOOD CELLS AUTO 0.0 /100WBC; PLT - PLATELET COUNT 129 10^3/uL (130-450); RED CELL DISTRIBUTION WIDTH 17.2 % (12.0-15.0)
[2025-06-12 00:10] LABS: GLUCOSE, URINE (UA) NEGATIVE (NEGATIVE); KETONES,URINE (UA) NEGATIVE (NEGATIVE); OCCULT BLOOD,URINE MODERATE (NEGATIVE)
[2025-06-12 00:11] LABS: CASTS, URINE 3-5 Course Granular /LPF; SQUAMOUS EPITHELIAL CELL,UR FEW Squamous (<= Few)
[2025-06-12 00:33] LABS: BUN - BLOOD UREA NITROGEN 26.0 mg/dL (6-20); CARBON DIOXIDE - CO2 27.0 mmol/L (21-32); CREATININE 1.6 mg/dL (0.6-1.3); GFR - MDRD 43.0 (>89)
[2025-06-12 00:48] LABS: ALT ALANINE AMINOTRANSFERASE 810.0 IU/L (10-60); AST ASPARTATE AMINOTRANSFERASE 1097.0 IU/L (10-42)
--- NOTE | 2025-06-12 00:53 | ED Physician Documentation ---
PD HPI ABD PAIN Stated complaint Stated Complaint: ABD PX Chief complaint Chief Complaint: Abd Pain Additional information Additional information: BIBA. Patient complains of 3-4 days of generalized abdominal pain, most pronounced in epigastrium, left upper quadrant, and Thanh umbilicus. Has been associate with nausea and "dry heaves" (per patient). He indicates he has had similar but milder pains over unclear timeframe but his description suggests at least s everal weeks. The pain he is led to the last few days is the most recurrent, persistent, and intense pains he has had. He has no past abdominal/pelvic surgical history. He has not noted any exacerbating nor ameliorating factors. While he says he does drink alcohol on a daily basis, he says most days he has a single beer. He tells me that, on occasion, he will have a single shot of vodka if he is having difficulty sleeping. He denies recent/chronic heavy alcohol intake. Despite the nausea and "dry heaves", the patient says he is tolerating p.o. which does not exacerbate his symptoms; furthermore, the patient says he has been drinking significant amount of water throughout the day today. He also says he drank a full bottle of Pepto-Bismol over the course of the day today. He denies recent acetaminophen/Tylenol use and denies chronic Tylenol intake. However, he does take Aleve on a daily basis. He says he has not taken more than the label instructions. Meds/Allgy Home Medications Ambulatory Orders Medication Instructions Recorded Confirmed acetaminophen 650 mg 650 - 1,300 mg (1 - 2 x 650 mg) PO 07/20/24 06/11/25 tablet,extended release (Tylenol Q8H PRN pain #90 tabs Arthritis Pain) albuterol sulfate 90 mcg/actuation 2 puff inhalation Q ID PRN 07/20/24 06/11/25 aerosol inhaler (Ventolin HFA) shortness of breath or wheezing [id number] 300 mcg-K 60 1 tab PO QDAY #30 tabs 07/20/24 06/11/25 mcg-lycop 600 mcg-lutein 300 mcg tablet (Centrum Silver Ultra Men's) albuterol sulfate 2.5 mg/3 mL 2.5 mg inhalation Q4H NC N 08/05/24 06/11/25 (0.083 %) solution for nebulization shortness of breat h or wheezing sertraline 50 mg tablet 50 mg PO QDAY 08/15/2406/11 irbesartan 300 1 tab PO QDAY #90 tabs 08/2206/11/25 mg-hydrochlorothiazide 12.5 mg tablet epinephrine 0.3 mg/0.3 mL 0.3 mg (0.3 mL) IM ONCE PRN 11/26/24 06/11/25 injection, auto-injector (EpiPen anaphylaxis #2 ea 2-Tobias) furosemide 20 mg tablet 20 mg PO QDAY #90 tabs 01/1706/11/25 mirtazapine 7.5 mg tablet 7.5 mg PO DAILY 02/05/25 lorazepam 0.5 mg tablet (Ativan) 0.5 mg PO BID PRN alc ohol 02/06/25 06/11/25 withdrawal and insomnia #10 tabs ondansetron HCl 4 mg tablet 4 mg PO Q8H PRN nausea and 02/06/25 06/11/25 vomiting #20 tabs pantoprazole 40 mg tablet,delayed 40 mg PO QDAY #90 ta bs 02/10/25 06/11/25 release atorvastatin 80 mg tablet (Lipitor) 80 mg PO QDAY #90 tabs 02/17/25 06/11/25 metoprolol succinate 50 mg 50 mg PO QDAY #90 tabs 02/1906/11/25 tablet,extended release 24 hr Allergies Allergies Allergy/AdvReac Type Severity Reaction Status Date / Time bee venom protein (honey bee) Allergy Severe Anaphylaxis Verified 03/13/25 14:03 Penicillins Allergy Severe Itching Verified 03/13/25 14:03 sulfamethoxazole (From Allergy Severe Hives Verified 03/13/25 14:03 Bactrim) trimethoprim (From Bactrim) Allergy Severe Hives Verified 03/13/25 14:03 PFS Active Problems All Active Problems (Updated 06/12/25 @ 06:06 by Nirmala Lassiter RN) Pancreatitis (Acute) Seasonal allergies (Acute) Nevus (Acute) Rash (Acute) Generalized abdominal discomfort (Acute) Hypertriglyceridemia (Acute) Balance problems (Acute) Tinnitus, bilateral (Acute) Alcohol abuse (Acute) Diarrhea (Acute) Mixed hyperlipidemia (Acute) Essential (primary) hypertension (Acute) GERD (gastroesophageal reflux disease) (Acute) Chronic obstructive pulmonary disease (Chronic) Depression (Acute) Medical History Medical History (Updated 06/12/25 @ 06:06 by Nirmala Lassiter RN) Chronic sinusitis Insomnia Fall Grief reaction acute-'s in 07/2023 H/O bee sting allergy Sweating abnormality Erectile dysfunction due to arterial insufficiency Traumatic arthritis of left ankle injury 2009 falling off ladder Bee sting allergy 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 01/2009 MRI w DJD, DDD, T11 abnml signal, ?bony mets, 03/2009 had bone scan and intense radio-upt entire vertebral body suggestive of Pagets. Seen by [facility] for possible biphosphonates. Dysphagia chronic/progressive for months. asso w asp and cough. Swallow study nml 09/2019. seen by ENT 02/2020. chronic nasal obs. 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 Basal cell carcinoma nose Fasting hyperglycemia PVC's (premature ventricular contractions) History of cigarette smoking Left calcaneal fracture Surgical History Surgical History H/O esophagogastroduodenoscopy 09/2022, mild chronic inflammation H/O colonoscopy 03/2021, hyperplastic polyp + sigmoid diverticulosis H/O reduction of closed fracture 04/2010, left subtalar fracture, non-op RX for calcaneous + cuboid fractures H/O colonoscopy 07/2008, hyperplastic polyp H/O sinus surgery x2 Family History Family History Father CVA (cerebral vascular accident) Mother Cancer Brother Pulmonary embolism Brother Carbon monoxide poisoning Son Well adult exam Daughter Well adult exam Social History Social History Smoking Status: Unknown if ever smoked If you are a former smoker, when did you quit? (Date/Year): 2021 Number of Years Smoked: 30 How many cigarettes a day do you smoke? (20 cigarettes=1 Pk): 10 Second hand tobacco smoke exposure: No Do you dip or chew tobacco?: No Do you vape?: No Patient requests smoking cessation consult: No Initiate information on smoking cessation: No Living arrangement: At home Marital Status: Living Condition: Alone Support Person: Yes Living [place]uation [place] Son in [facility], daughter here on [place] Physical Activity: None and Walking Level: Independent Physical - Functional Details: Fallen several times this year due to lack of balance. No cane, no walker. Drives a car. Still pays bills. Still does yard work. Do you feel safe in your home environment?: Yes History of physical, verbal, emotional, or financial abuse?: No ETOH Use: Beer and Liquor Frequency: Occasional ETOH - Additional Notes: has one beer with neighbor daily "beer-thirty", 2 vodkas a night before bed Substance Use: over the counter (eg: immodium) Substance Use Details: aleve, vitamin c, mulit-vitamin, instaflex, prevagen professional, CoQ10, Krill oil Are you sexually active?: No Occupation - Current: [employer], [employer], [employer] Retired: Yes Service: Yes POLST Patient has POLST: No Exam Exam Vital Signs: Vital Signs x48h Temp Pulse Resp BP Pulse Ox 06/12/25 03:10 83 18 134/73 H 92 06/12/25 02:03 82 20 156/89 H 96 06/11/25 23:44 36.1 C L 89 18 141/92 H 95 Constitutional normal general appearance, distress noted (appears to be in mild-moderate painful discomfort) and alert Respiratory breath sounds equal bilaterally, wheezing noted (trace end-expiratory wheezing bilaterally but good air flow) and no rales Cardiovascular normal heart rate noted, regular rhythm noted (regular rhythm with occasional skipped beats), no murmur and no edema Gastrointestinal abdomen soft to palpation and tender to palpation (moderate), (epigastric), (LUQ) and (periumbilical) Genitourinary no CVA tenderness Psychiatry oriented x3 Skin skin color normal Results Vitals Vitals: Vital Signs - 24 hr 06/11/25 23:44 06/12/25 02:01 06/12/25 02:03 Temperature 36.1 C L Temperature Source Tympanic Pulse Rate 89 82 Respiratory Rate 18 20 Blood Pressure 141/92 H 156/89 H O2 Saturation 95 96 O2 Source Room air Room air Pain Intensity 7 8 7 06/12/25 03:10 06/12/25 04:44 Temperature Temperature Source Pulse Rate 83 Respiratory Rate 18 Blood Pressure 134/73 H O2 Saturation 92 O2 Source Pain Intensity 3 Oxygen O2 Source Room air Labs Labs: Laboratory Tests 06/11/25 23:48 WBC 9.5 RBC 4.51 L Hgb 13.9 L Hct 40.1 L MCV 88.9 MCH 30.8 MCHC 34.7 RDW 17.2 H Plt Count 129 L MPV 11.4 Neut # (Auto) 7.1 H Lymph # (Auto) 1.5 [place] # (Auto) 0.7 Eos # (Auto) 0.1 Baso # (Auto) 0.1 Absolute Nucleated RBC 0.00 Nucleated RBC % 0.0 Sodium 135 Potassium 4.0 Chloride 100 L Carbon Dioxide 27 Anion Gap 8.0 BUN 26 H Creatinine 1.6 H Estimated GFR (MDRD) 43 L Glucose 114 H Calcium 8.5 Total Bilirubin 3.8 H AST 1097 H ALT 810 H Alkaline Phosphatase 163 H Total Protein 6.2 L Albumin 3.0 L Globulin 3.2 Albumin/Globulin Ratio 0.9 L Lipase 1840 H Urine Color DARK YELLOW Urine Clarity CLEAR Urine pH 6.0 Ur Specific [place] 1.020 Urine Protein 100 H Urine Glucose (UA) NEGATIVE Urine Ketones NEGATIVE Urine Occult Blood MODERATE Urine Nitrite NEGATIVE Urine Bilirubin NEGATIVE Urine Urobilinogen 0.2 (NORMAL) Ur Leukocyte Esterase NEGATIVE Urine RBC 0-5 Urine WBC 0-3 Ur Squamous Epith Cells FEW Squamous Urine Bacteria Few Urine Casts 3-5 Course Granular Urine Mucus Few Strands Ur Microscopic Review INDICATED Urine Culture Comments NOT INDICATED Rads (name of study) CT A/P with IV contrast: Relevant Findings:: Prelim report reviewed and See rad report PD Medical Decision Making ED course Complexity details: reviewed results, re-evaluated patient, considered differential and d/w patient ED course: Patient is given 0.5 mg IV Dilaudid, 4 mg IV Zofran, 500 cc normal saline bolus followed by 150 mL/h normal saline (for maintenance fluids, n.p.o. at this time). CT A/P shows interstitial edematous pancreatitis, distended gallbladder with small layering gallstones but no pancreatic nor biliary ductal dilatation. Significant abnormalities on tonight's blood test include lipase 1840, bilirubin 3.8, AST 1097, ALT 810, alk phos 163, BUN 26, creatinine 1.6, GFR 43. Patient was treated and released from this emergency department 4 months ago for similar symptoms albeit milder. At that time, he had mild elevations in his lipase, LFTs, and creatinine. Tonight's abnormalities are significantly worse than those results. However, patient's GFR is 43 today and was 40 in January 2025. On reevaluation, results discussed with patient. He is in NAD and reports good symptomatic relief subsequent to the above medications. I discussed this case with the on-call surgeon for [facility] (Dr. Huang); he says patient is appropriate for admission to [facility], recommends hospitalist service. Dr. Huang recommends US in AM and direct bilirubin on repeat AM labs; I passed these recommendation on to the admitting hospitalist Discharge Plan Discharge Patient Disposition: 66 [facility] DC/Xfer Condition: Stable Clinical Impression: Pancreatitis Interventions: ED Admission Assessment Last Done: 06/12/25 05:15
[2025-06-12] MEDS: SODIUM CHLORIDE 0.9% 500 ML IV STA (01:15)
[2025-06-12] MEDS: ONDANSETRON 4 MG/2 ML VIAL IVP STA (02:01)
[2025-06-12] MEDS: HYDROmorphone 1 MG/ML CARPUJECT IVP STA (02:01)
--- NOTE | 2025-06-12 02:46 | CT Report ---
PROCEDURE: CT Abdomen/Pelvis W INDICATIONS: abd. pain, elevated LFTs/lipase CONTRAST: 100cc [id number] TECHNIQUE: After the administration of intravenous contrast, a CT scan of the abdomen and pelvis was performed. Images were recorded and evaluated at appropriate window settings. Reformats: coronal and sagittal. For radiation dose reduction, the following was used: automated exposure control, adjustment of mA and/or kV according to patient size. COMPARISON: CT abdomen pelvis 02/06/2025. MRI adrenal protocol 10/25/2022. FINDINGS: Image quality: Diagnostic. Lower chest: Unremarkable. Liver: No solid mass. Hepatic steatosis. Gallbladder: Distended. Small layering gallstones. Biliary tree: No intrahepatic or extrahepatic dilation, accounting for age. Spleen: No splenomegaly. Pancreas: No pancreatic ductal dilation. There is stranding about the pancreas. The pancreas enhances uniformly. No loculated appearing fluid collection. Fluid tracking in the retroperitoneum. Adrenals: Small adrenal adenomas are unchanged. Kidneys and ureters: No hydronephrosis. Left peripelvic cyst is suspected. No renal cystic lesion which requires follow up. No solid mass. Stomach, bowel and peritoneum: Stomach is within normal limits. A few prominent loops of small bowel in the left abdomen. No obstruction. No abnormal wall thickening. No pathologic free fluid. Diverticulosis. Normal appendix. Lymph nodes: No central or retroperitoneal adenopathy. Vessels: No infrarenal aortic aneurysm. Circumferential calcified atherosclerotic plaque. Patent portal vein. PELVIS Reproductive organs: Unremarkable. Bladder: No abnormal wall thickening. Pelvic lymph nodes: No pelvic adenopathy by size criteria. Bones: No aggressive osseous abnormality. Sclerosis at the left SI joint. Suspected intraosseous hemangioma at T11, unchanged. Other: No significant ventral or inguinal hernia. Lumbar subcutaneous edema. IMPRESSION: 1. Interstitial edematous pancreatitis. No necrosis or loculated fluid collection at this time. 2. No biliary or pancreatic ductal dilatation is seen. 3. Distended gallbladder. Small layering gallstones. Reviewed by: Arnie Cho MD on 06/12/2025 2:43 AM PDT Approved by: Arnie Cho MD on 06/12/2025 2:43 AM PDT Station ID: [id number]
[2025-06-12] MEDS: SODIUM CHLORIDE 0.9% 1,000 ML IV STA (04:47)
[2025-06-12] MEDS ORDERED: ONDANSETRON ODT 4 MG TABLET PO PRN (05:05)
[2025-06-12] MEDS ORDERED: ALBUTEROL NEB 2.5 MG/3 ML INH PRN (05:05)
[2025-06-12] MEDS ORDERED: NITROGLYCERIN SL 0.4 MG TABLET SL PRN (05:09)
[2025-06-12] MEDS ORDERED: BENZONATATE 100 MG CAPSULE PO PRN (05:09)
[2025-06-12] MEDS ORDERED: MV MIN FOLIC K1 LYCOPEN LUTEIN PO SCH (05:15)
[2025-06-12] MEDS ORDERED: [UNRECOGNIZED DRUG - OTHER] PO SCH (05:15)
--- NOTE | 2025-06-12 06:00 | HISTORY & PHYSICAL EXAMINATION ---
Chief Complaint Chief Complaint Chief Complaint: abd pain, reflux History of Present Illness History of Present Illness HPI Comment/Other: pt with progressive abd pain + epigastric burning x 3-4 days. no trauma. some retching / nausea but denies vomiting. little po intake or appetite. did have episode of loose stools, without blood. no dysuria or hematuria. no falls. no chest pain. sob. pt does take aleve nearly daily but never exceeds the recommended dosage. he is on statin. drinks about 1 beer daily. denies h/o hospitalized withdrawal but does take ativan as needed. h/o ckd. Review of Systems Status of ROS: 10 or more systems reviewed and unremarkable except as noted in history and below PFSH Active Problems All Active Problems (Updated 06/12/25 @ 06:06 by Nirmala Lassiter RN) Pancreatitis (Acute) Seasonal allergies (Acute) Nevus (Acute) Rash (Acute) Generalized abdominal discomfort (Acute) Hypertriglyceridemia (Acute) Balance problems (Acute) Tinnitus, bilateral (Acute) Alcohol abuse (Acute) Diarrhea (Acute) Mixed hyperlipidemia (Acute) Essential (primary) hypertension (Acute) GERD (gastroesophageal reflux disease) (Acute) Chronic obstructive pulmonary disease (Chronic) Depression (Acute) Medical History Medical History (Updated 06/12/25 @ 06:06 by Nirmala Lassiter RN) Chronic sinusitis Insomnia Fall Grief reaction acute-'s in 07/2023 H/O bee sting allergy Sweating abnormality Erectile dysfunction due to arterial insufficiency Traumatic arthritis of left ankle injury 2010 falling off ladder Bee sting allergy 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 01/2009 MRI w DJD, DDD, T11 abnml signal, ?bony mets, 03/2009 had bone scan and intense radio-upt entire vertebral body suggestive of Pagets. Seen by [facility] for possible biphosphonates. Dysphagia chronic/progressive for months. asso w asp and cough. Swallow study nml 09/2019. seen by ENT 02/2020. chronic nasal obs. 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 Basal cell carcinoma nose Fasting hyperglycemia PVC's (premature ventricular contractions) History of cigarette smoking Left calcaneal fracture Surgical History Surgical History H/O esophagogastroduodenoscopy 09/2022, mild chronic inflammation H/O colonoscopy 03/2021, hyperplastic polyp + sigmoid diverticulosis H/O reduction of closed fracture 04/2010, left subtalar fracture, non-op RX for calcaneous + cuboid fractures H/O colonoscopy 07/2008, hyperplastic polyp H/O sinus surgery x2 Family History Family History Father CVA (cerebral vascular accident) Mother Cancer Brother Pulmonary embolism Brother Carbon monoxide poisoning Son Well adult exam Daughter Well adult exam Social History Social History Smoking Status: Unknown if ever smoked If you are a former smoker, when did you quit? (Date/Year): 2019 Number of Years Smoked: 20 How many cigarettes a day do you smoke? (20 cigarettes=1 Pk): 20 Second hand tobacco smoke exposure: No Do you dip or chew tobacco?: No Do you vape?: No Patient requests smoking cessation consult: No Initiate information on smoking cessation: No Living arrangement: At home Marital Status: Living Condition: Alone Support Person: Yes Living Situation Details: Lives in his own home on the [place]. Son in [facility], daughter here on [place] Physical Activity: None and Walking Level: Independent Physical - Functional Details: Fallen several times this year due to lack of balance. No cane, no walker. Drives a car. Still pays bills. Still does yard work. Do you feel safe in your home environment?: Yes History of physical, verbal, emotional, or financial abuse?: No ETOH Use: Beer and Liquor Frequency: Occasional ETOH - Additional Notes: has one beer with neighbor daily "beer-thirty", 2 vodkas a night before bed Substance Use: denies use Substance Use Details: aleve, vitamin c, mulit-vitamin, instaflex, prevagen professional, CoQ10, Krill oil Are you sexually active?: No Occupation - Current: [employer], [employer] Retired: Yes Service: Yes POLST Patient has POLST: No Meds/Allgy Home Medications Ambulatory Orders Medication Instructions Recorded Confirmed acetaminophen 650 mg 650 - 1,300 mg (1 - 2 x 650 mg) PO 07/20/24 06/11/25 tablet,extended release (Tylenol Q8H PRN pain #90 tabs Arthritis Pain) albuterol sulfate 90 mcg/actuation 2 puff inhalation Q ID PRN 07/20/24 06/11/25 aerosol inhaler (Ventolin HFA) shortness of breath or wheezing [id number] 300 mcg-K 60 1 tab PO QDAY #30 tabs 07/20/24 06/11/25 mcg-lycop 600 mcg-lutein 300 mcg tablet (Centrum Silver Ultra Men's) albuterol sulfate 2.5 mg/3 mL 2.5 mg inhalation Q4H TX N 08/05/24 06/11/25 (0.083 %) solution for nebulization shortness of breat h or wheezing sertraline 50 mg tablet 50 mg PO QDAY 08/15/2406/11 irbesartan 300 1 tab PO QDAY #90 tabs 08/2206/11/25 mg-hydrochlorothiazide 12.5 mg tablet epinephrine 0.3 mg/0.3 mL 0.3 mg (0.3 mL) IM ONCE PRN 11/26/24 06/11/25 injection, auto-injector (EpiPen anaphylaxis #2 ea 2-Tobias) furosemide 20 mg tablet 20 mg PO QDAY #90 tabs 01/1706/11/25 mirtazapine 7.5 mg tablet 7.5 mg PO DAILY 02/05/25 lorazepam 0.5 mg tablet (Ativan) 0.5 mg PO BID PRN alc ohol 02/06/25 06/11/25 withdrawal and insomnia #10 tabs ondansetron HCl 4 mg tablet 4 mg PO Q8H PRN nausea and 02/06/25 06/11/25 vomiting #20 tabs pantoprazole 40 mg tablet,delayed 40 mg PO QDAY #90 ta bs 02/10/25 06/11/25 release atorvastatin 80 mg tablet (Lipitor) 80 mg PO QDAY #90 tabs 02/17/25 06/11/25 metoprolol succinate 50 mg 50 mg PO QDAY #90 tabs 02/1906/11/25 tablet,extended release 24 hr Allergies Allergies Allergy/AdvReac Type Severity Reaction Status Date / Time bee venom protein (honey bee) Allergy Severe Anaphylaxis Verified 03/13/25 14:03 Penicillins Allergy Severe Itching Verified 03/13/25 14:03 sulfamethoxazole (From Allergy Severe Hives Verified 03/13/25 14:03 Bactrim) trimethoprim (From Bactrim) Allergy Severe Hives Verified 03/13/25 14:03 Exam Exam Vital Signs: Vital Signs x48h Temp Pulse Resp BP Pulse Ox 06/12/25 05:15 36.7 C 90 18 156/79 H 96 06/12/25 03:10 83 18 134/73 H 92 06/12/25 02:03 82 20 156/89 H 96 06/11/25 23:44 36.1 C L 89 18 141/92 H 95 gen - aaox3, nad heent - eomi, nc/at heart - per ed charting lungs - no obvious distress or retractions abd - details per ed charting msk - no acute pathology or trauma Conclusion/Plan Problem List (1) Pancreatitis: Lab Results 06/11/25 23:48 06/11/25 23:48 Other Other Results/Comments: pt with - - acute pancreatitis ivf, pain control, supportive care check lipid panel / triglycerides denies h/o same - transaminitis + hyperbilirubinemia in setting of and contributory to above hold statin and avoid any hepatotoxins as much as possible hepatitis panel ordered gen surg consulted --> recommended check direct bilirubin RUQ sono - distended gallbladder on CT imaging contributory and in setting of above check RUQ sono appreciate surgery recommendations - gerd continue home protonix - etoh use drinks 1 beer daily on ativan prn at home for withdrawal sx contributory to above - yariel on ckd new proteinuria on ua pt does take aleve avoid nephrotoxins as much as possible ivf, check renal sono
[2025-06-12] MEDS: HYDROmorphone 0.5 MG/0.5 ML SYRINGE IVP PRN (06:25)
[2025-06-12] MEDS: LACTATED RINGERS 1,000 ML IV SCH (06:25)
[2025-06-12] MEDS: PANTOPRAZOLE 40 MG TABLET PO SCH (06:25)
[2025-06-12 06:38] LABS: CHOL/HDL RATIO 15.7 (<5.0); LDL/HDL RATIO 11.1 (<3.6); VLDL CHOLESTEROL 36 mg/dL
[2025-06-12 08:08] LABS: HCT - HEMATOCRIT 38.2 % (42.0-52.0); HGB - HEMOGLOBIN 13.0 g/dL (14.0-18.0); MEAN PLATELET VOLUME 11.2 fL (7.4-11.4); PLT - PLATELET COUNT 119.0 10^3/uL (130-450); RED CELL DISTRIBUTION WIDTH 17.7 % (12.0-15.0)
[2025-06-12 08:33] LABS: ALT ALANINE AMINOTRANSFERASE 691.0 IU/L (10-60); AST ASPARTATE AMINOTRANSFERASE 908.0 IU/L (10-42); BUN - BLOOD UREA NITROGEN 23.0 mg/dL (6-20); CARBON DIOXIDE - CO2 27.0 mmol/L (21-32); CREATININE 1.5 mg/dL (0.6-1.3); GFR - MDRD 46.0 (>89)
--- NOTE | 2025-06-12 09:16 | PROVIDER PROGRESS NOTE ---
<Statement entered by Yoan Valentin DNP - 06/12/25 14:17> Patient was seen and examined by me with a separate encounter after being seen by APRIL student. I reviewed the student's documentation including patient history, physical examination, laboratory, imaging, clinical assessment and treatment plan. I have discussed the management of the patient with the student, and with the patient. There are no changes. Nonbillable progress note. Continue pain management and IVF. Upgraded to sips and chips Subjective Prog Note Date Prog Note Date: 06/12/25 Prog Note Time: 09:34 Subjective Pt reports feeling: Improved Subjective: Chuck Aiken is a 74 year old male that presented to the ER on 06/12 for severe abdominal pain. He began feeling burning pain that started 3-4 days ago accompanied by nausea. Pt admitted this morning (06/12) for suspected acute pancreatitis complicated by gallstone involvement. No sign of necrosis or infection noted at time of admission. Currently he reports 6/10 epigastric pain that worsens with palpation. ROS: Denies fever, chills, night sweats, vomiting Occasional feelings of nausea Reports 6/10 epigastric abdominal pain. RN reports pt has low grade fever of 38.4 C. Current Medications Current Medications Current Medications: Current Medications Generic Name Dose Route Start Last Admin Trade Name Freq PRN Reason Stop Dose Admin Acetaminophen 650 mg 06/12/25 09:12 Acetaminophen 325 Mg Tablet PO Q4HR PRN Pain or Fever > 38C (100.4F) Albuterol 2.5 mg 06/12/25 05:05 Albuterol Neb 2.5 Mg/3 Ml INH Q4H PRN shortness of breath or wheezing Benzonatate 100 mg 06/12/25 05:09 Benzonatate 100 Mg Capsule PO TID PRN Cough Epinephrine HCl 0.3 mg 06/12/25 05:23 Epinephrine 1 Mg/Ml Vial IM 07/13/25 05:22 ONCE PRN ANAPPHYLAXIS REACTION TO BEES Furosemide 20 mg 06/12/25 09:00 Furosemide 20 Mg Tablet PO DAILY JERRICA Hydrochlorothiazide 12.5 mg 06/12/25 09:00 Hydrochlorothiazide 25 Mg Tablet PO DAILY JERRICA Hydromorphone HCl 0.25 mg 06/12/25 05:09 06/12/25 06:25 Hydromorphone 0.5 Mg/0.5 Ml Syringe IVP 0.25 mg Q4H PRN Administration Severe Pain (Level 7-10) Lactated Ringer's 1,000 mls @ 125 mls/hr 06/12/25 06:00 06/12/25 06:25 Lr IV 125 mls/hr .Q8H JERRICA Administration Acetaminophen 1,000 mg in 100 mls @ 400 mls/hr 06/12/25 09:12 Acetaminophen IV 06/12/25 09:26 ONCE ONE Lactobacillus Rhamnosus 1 cap 06/12/25 09:00 Lactobacillus Rhamnosus Gg Capsule PO DAILY JERRICA Lorazepam 0.5 mg 06/12/25 05:05 Lorazepam 0.5 Mg Tablet PO BID PRN alcohol withdrawal and insomnia Losartan Potassium 100 mg 06/12/25 09:00 Losartan 50 Mg Tablet PO DAILY JERRICA Melatonin 3 mg 06/12/25 05:09 Melatonin 3 Mg Tablet PO QPM PRN sleep Metoprolol Succinate 50 mg 06/12/25 09:00 Metoprolol Succinate 50 Mg Tablet PO DAILY JERRICA Multivitamins/Minerals 1 tab 06/12/25 08:00 Multivitamin W/Minerals Tablet PO DAILYWM JERRICA Nitroglycerin 0.4 mg 06/12/25 05:09 Nitroglycerin Sl 0.4 Mg Tablet SL Q5MIN PRN Chest Pain Ondansetron HCl 4 mg 06/12/25 05:05 Ondansetron Odt 4 Mg Tablet PO Q8H PRN nausea and vomiting Pantoprazole Sodium 40 mg 06/12/25 07:00 06/12/25 06:25 Pantoprazole 40 Mg Tablet PO 40 mg Q24H JERRICA Administration Objective Vital Signs/Intake & Output Reviewed Vital Signs: Yes Vital Signs: Vital Signs x48h Temp Pulse Pulse Resp BP BP Pulse Ox 06/12/25 08:00 36.7 C 85 20 140/80 H 94 06/12/25 05:44 36.8 C 85 21 134/83 H 95 06/12/25 05:15 36.7 C 90 18 156/79 H 96 06/12/25 03:10 83 18 134/73 H 92 06/12/25 02:03 82 20 156/89 H 96 Intake & Output: Intake & Output 06/09/25 06/10/25 06/11/25 06/12/25 23:59 23:59 23:59 23:59 Intake Total 500 / 500 Output Total 0 / 0 Balance 500 / 500 Weight (kg) 114.4 kg 108 kg Objective General Appearance: positive No acute distress and Alert Eyes Bilateral: positive Normal inspection, PERRL, EOMI, Conjunctivae nml and No scleral icterus Cardiovascular: positive Regular rate & rhythm, No murmur and No gallop; negative Friction rub Peripheral Pulses: 2+: Radial (R) and 2+: Radial (L) Abdomen: positive Tenderness (epigastric and RUQ), Guarding (epigastric), Rebound (tenderness in RUQ) and Hepatomegaly; negative No distention Skin: positive Color nml Extremities: positive No pedal edema Neurologic/Psychiatric: positive Oriented x3 and Mood/affect nml Lab Results 06/12/25 07:55 06/12/25 07:55 Other Labs: Lab Results x24hrs 06/12/25 06/12/25 06/12/25 Range/Units 07:55 06:03 06:03 WBC 10.5 (4.8-10.8) x10^3/uL RBC 4.25 L (4.70-6.10) 10^6/uL Hgb 13.0 L (14.0-18.0) g/dL Hct 38.2 L (42.0-52.0) % MCV 89.9 (80.0-94.0) fL MCH 30.6 (27.0-31.0) pg MCHC 34.0 (32.0-36.0) g/dL RDW 17.7 H (12.0-15.0) % Plt Count 119 L (130-450) 10^3/uL MPV 11.2 (7.4-11.4) fL Neut # (Auto) (1.5-6.6) 10^3/uL Lymph # (Auto) (1.5-3.5) 10^3/uL [place] # (Auto) (0.0-1.0) 10^3/uL Eos # (Auto) (0.0-0.7) 10^3/uL Baso # (Auto) (0.0-0.1) 10^3/uL Absolute Nucleated RBC x10^3/uL Nucleated RBC % /100WBC Sodium 135 (135-145) mmol/L Potassium 4.1 (3.5-4.5) mmol/L Chloride 102 (101-111) mmol/L Carbon Dioxide 27 (21-32) mmol/L Anion Gap 6.0 (6-13) BUN 23 H (6-20) mg/dL Creatinine 1.5 H (0.6-1.3) mg/dL Estimated GFR (MDRD) 46 L (>89) Glucose 100 (74-104) mg/dL Calcium 8.1 L (8.5-10.3) mg/dL Total Bilirubin 3.6 H 3.6 H (0.2-1.0) mg/dL Direct Bilirubin 2.42 H (0.03-0.18) mg/dL Indirect Bilirubin 1.2 mg/dL AST 908 H (10-42) IU/L ALT 691 H (10-60) IU/L Alkaline Phosphatase 152 H (42-121) IU/L Total Protein 5.8 L (6.4-8.9) g/dL Albumin 2.8 L (3.2-5.5) g/dL Globulin 3.0 (2.1-4.2) g/dL Albumin/Globulin Ratio 0.9 L (1.0-2.2) Triglycerides 180 181 mg/dL Cholesterol 157 ( - 200) mg/dL LDL Cholesterol, Calc 111 ( - 129) mg/dL VLDL Cholesterol 36 mg/dL HDL Cholesterol 10 L (60 - ) mg/dL LDL/HDL Ratio 11.1 (<3.6) Cholesterol/HDL Ratio 15.7 (<5.0) Lipase (11-82) U/L TSH 1.44 (0.34-5.60) uIU/mL Urine Color Urine Clarity (CLEAR) Urine pH (5.0-7.5) PH Ur Specific [place] (1.002-1.030) Urine Protein (NEGATIVE) mg/dL Urine Glucose (UA) (NEGATIVE) mg/dL Urine Ketones (NEGATIVE) mg/dL Urine Occult Blood (NEGATIVE) Urine Nitrite (NEGATIVE) Urine Bilirubin (NEGATIVE) Urine Urobilinogen (NORMAL) E.U./dL Ur Leukocyte Esterase (NEGATIVE) Urine RBC (0-5) /HPF Urine WBC (0-3) /HPF Ur Squamous Epith Cells (<= Few) Urine Bacteria (None Seen) /HPF Urine Casts /LPF Urine Mucus Ur Microscopic Review Urine Culture Comments 06/11/25 Range/Units 23:48 WBC 9.5 (4.8-10.8) x10^3/uL RBC 4.51 L (4.70-6.10) 10^6/uL Hgb 13.9 L (14.0-18.0) g/dL Hct 40.1 L (42.0-52.0) % MCV 88.9 (80.0-94.0) fL MCH 30.8 (27.0-31.0) pg MCHC 34.7 (32.0-36.0) g/dL RDW 17.2 H (12.0-15.0) % Plt Count 129 L (130-450) 10^3/uL MPV 11.4 (7.4-11.4) fL Neut # (Auto) 7.1 H (1.5-6.6) 10^3/uL Lymph # (Auto) 1.5 (1.5-3.5) 10^3/uL [place] # (Auto) 0.7 (0.0-1.0) 10^3/uL Eos # (Auto) 0.1 (0.0-0.7) 10^3/uL Baso # (Auto) 0.1 (0.0-0.1) 10^3/uL Absolute Nucleated RBC 0.00 x10^3/uL Nucleated RBC % 0.0 /100WBC Sodium 135 (135-145) mmol/L Potassium 4.0 (3.5-4.5) mmol/L Chloride 100 L (101-111) mmol/L Carbon Dioxide 27 (21-32) mmol/L Anion Gap 8.0 (6-13) BUN 26 H (6-20) mg/dL Creatinine 1.6 H (0.6-1.3) mg/dL Estimated GFR (MDRD) 43 L (>89) Glucose 114 H (74-104) mg/dL Calcium 8.5 (8.5-10.3) mg/dL Total Bilirubin 3.8 H (0.2-1.0) mg/dL Direct Bilirubin (0.03-0.18) mg/dL Indirect Bilirubin mg/dL AST 1097 H (10-42) IU/L ALT 810 H (10-60) IU/L Alkaline Phosphatase 163 H (42-121) IU/L Total Protein 6.2 L (6.4-8.9) g/dL Albumin 3.0 L (3.2-5.5) g/dL Globulin 3.2 (2.1-4.2) g/dL Albumin/Globulin Ratio 0.9 L (1.0-2.2) Triglycerides mg/dL Cholesterol ( - 200) mg/dL LDL Cholesterol, Calc ( - 129) mg/dL VLDL Cholesterol mg/dL HDL Cholesterol (60 - ) mg/dL LDL/HDL Ratio (<3.6) Cholesterol/HDL Ratio (<5.0) Lipase 1840 H (11-82) U/L TSH (0.34-5.60) uIU/mL Urine Color DARK YELLOW Urine Clarity CLEAR (CLEAR) Urine pH 6.0 (5.0-7.5) PH Ur Specific [place] 1.020 (1.002-1.030) Urine Protein 100 H (NEGATIVE) mg/dL Urine Glucose (UA) NEGATIVE (NEGATIVE) mg/dL Urine Ketones NEGATIVE (NEGATIVE) mg/dL Urine Occult Blood MODERATE (NEGATIVE) Urine Nitrite NEGATIVE (NEGATIVE) Urine Bilirubin NEGATIVE (NEGATIVE) Urine Urobilinogen 0.2 (NORMAL) (NORMAL) E.U./dL Ur Leukocyte Esterase NEGATIVE (NEGATIVE) Urine RBC 0-5 (0-5) /HPF Urine WBC 0-3 (0-3) /HPF Ur Squamous Epith Cells FEW Squamous (<= Few) Urine Bacteria Few (None Seen) /HPF Urine Casts 3-5 Course Granular /LPF Urine Mucus Few Strands Ur Microscopic Review INDICATED Urine Culture Comments NOT INDICATED Diagnostic Imaging Diagnostic Imaging Results: positive Prelim report reviewed and Final report reviewed Assessment/Plan Problem List (1) Pancreatitis: Impression: Pt admitted on 06/12 for 3-4 days of severe burning epigastric abdominal pain. Pt given 0.25 mg hydromorphone at 06:25 on day of admission. RN reported pt had a low grade fever of 38.4, IV acetaminophen started at 09:31 on 06/12. US completed and review by radiologists. Radiologist impression: moderate suspicious for acute cholecystitis and hepatomegaly. Current pain is 6/10. - MD increased hydromorphone dose to 0.5 mg for improved pain management - discontinued home meds (hydrochlorothiazide and furosemide) to maintain patient fluids - continue administering fluids: LRs 125 mL/hr - continue monitoring vitals, IOs, and daily labs (CBC, CMP, Mg) (2) Cholecystitis: Impression: Plan for cholecystectomy tomorrow - Likely post-op stay 2-3 days. (3) Elevated LFTs: Impression: Recommend follow-up OP monitoring. Recommend follow-up OP US.
[2025-06-12] MEDS: METOPROLOL SUCCINATE 50 MG TABLET PO SCH (09:25)
[2025-06-12] MEDS: LOSARTAN 50 MG TABLET PO SCH (09:26)
[2025-06-12] MEDS: LACTOBACILLUS RHAMNOSUS GG CAPSULE PO SCH (09:26)
[2025-06-12] MEDS: MULTIVITAMIN W/MINERALS TABLET PO SCH (09:26)
[2025-06-12] MEDS: ACETAMINOPHEN 1,000 MG/100 ML 1,000 MG/100 ML BAG IV ONE (09:31)
[2025-06-12] MEDS: FUROSEMIDE 20 MG TABLET PO SCH (09:36)
--- NOTE | 2025-06-12 10:03 | PHARMACY PROGRESS NOTE ---
Best Possible Medication History Admit Date and Time: 06/12/25 0506 Home Medications Medication Instructions Recorded Confirmed Type albuterol sulfate 90 mcg/actuation 2 puff inhalation Q ID PRN 07/20/24 06/11/25 History aerosol inhaler (Ventolin HFA) shortness of breath or wheezing [id number] 300 mcg-K 60 1 tab PO QDAY #30 tabs 07/20/24 06/11/25 Rx mcg-lycop 600 mcg-lutein 300 mcg tablet (Centrum Silver Ultra Men's) albuterol sulfate 2.5 mg/3 mL 2.5 mg inhalation Q4H FL N 08/05/24 06/11/25 History (0.083 %) solution for nebulization shortness of breat h or wheezing irbesartan 300 1 tab PO QDAY #90 tabs 08/2206/11/25 Rx mg-hydrochlorothiazide 12.5 mg tablet epinephrine 0.3 mg/0.3 mL 0.3 mg (0.3 mL) IM ONCE PRN 11/26/24 06/11/25 Rx injection, auto-injector (EpiPen anaphylaxis #2 ea 2-Tobias) furosemide 20 mg tablet 20 mg PO QDAY #90 tabs 01/1706/11/25 Rx pantoprazole 40 mg tablet,delayed 40 mg PO QDAY #90 ta bs 02/10/25 06/11/25 Rx release atorvastatin 80 mg tablet (Lipitor) 80 mg PO QDAY #90 tabs 02/17/25 06/11/25 Rx metoprolol succinate 50 mg 50 mg PO QDAY #90 tabs 02/1906/11/25 Rx tablet,extended release 24 hr naproxen sodium 220 mg capsule 220 mg PO BID PRN pain 06/12/25 06/12/25 History (Aleve) sertraline 100 mg tablet 100 mg PO DAILY 06/12/25 History Processed by: Pharmacy Medications reviewed in ED?: No Medication History completed: Yes Patient Interview: Completed Secondary Source(s): Written medication list, Pharmacy records and Insurance records [facility] Statement: As the person ultimately responsible for medication therapy, providers are able to order a medication from an existing home medication list in [facility] via the "Reconcile Routine" prior to Confirmation of that medication by logistics support. Such practice is discouraged except when the physician, in their clinical judgment, deems that a medical need exists for a medication without regard to previous use.
--- NOTE | 2025-06-12 10:04 | Ultrasound Report ---
PROCEDURE: US Abdomen Limited INDICATIONS: ?cholecystitis TECHNIQUE: Real-time focused scanning was performed of the abdomen, with image documentation. COMPARISONS: CT abdomen/pelvis 06/12/2025 and 02/06/2025 FINDINGS: Liver: Liver is enlarged measuring 21.3 cm in maximal dimension with diffuse increased echogenicity. Gallbladder: Gallbladder is distended measuring 10.8 cm maximal dimension. Gallbladder wall is normal in thickness. Trace pericholecystic fluid. Sonographic Rodriguez sign is positive. Tiny gallstone seen on CT are not well visualized sonographically. Biliary ducts: Intrahepatic bile ducts are non-dilated. Extrahepatic bile duct caliber measures 7 mm. Normal is 6-7 mm or less in diameter, or 10 mm or less post-cholecystectomy. Pancreas: Not well visualized due to overlying bowel gas. Right kidney: Normal in size and echotexture. Right kidney measures 11.2 cm long. No hydronephrosis or nephrolithiasis. No solid masses. No complex renal cystic lesions which require follow-up. IVC: Intrahepatic inferior vena cava is patent. Miscellaneous: No free abdominal fluid. IMPRESSION: 1. Distended gallbladder with trace pericholecystic fluid and positive sonographic Rodriguez's sign. Tiny layering gallstones on CT are not well visualized sonographically. Findings are moderate suspicious for acute cholecystitis. 2. No biliary duct dilatation. 3. Hepatomegaly and diffuse increased hepatic echogenicity are nonspecific, but most commonly encountered in the setting of hepatic steatosis. However, other causes of hepatocellular disease are not excluded. Recommend clinical correlation. Reviewed by: Elias Gonzáles MD on 06/12/2025 10:01 AM PDT Approved by: Elias Gonzáles MD on 06/12/2025 10:01 AM PDT Station ID: [id number]
[2025-06-12 10:30] LABS: ESTIMATED AVERAGE GLUCOSE 131 mg/dL (70-100); HEMOGLOBIN A1c% 6.2 % (4.27-6.07)
--- NOTE | 2025-06-12 14:16 | ADVANCE CARE PLANNING NOTE ---
Advance Care Planning Planning Encounter Date: 06/12/25 Time: 14:13 Purpose: Code status, decision makers, living situation at discharge Parties in Attendance: Patient Decisional Capacity of the Patient: Fall Diagnosis for Encounter (1) Pancreatitis: Summary: Admitted for pancreatitis, gallstone versus alcoholic. This is also causing elevated LFTs. Being treated with aggressive IVF Encounter Subjective/Patient's Story: Patient is retired, and lives home alone since the of his . His support structure includes a daughter who is his power of clinical field specialist as well as a neighbor who visits with him every day Objective/Medical Story: Patient reports history of hypertension and atrial fibrillation. Reports echo performed at [facility] showing normal heart function. Reports he is on Lasix for leg swelling Goals of Care: Goal of care is to recover from this episode of pancreatitis, and will consider further workup of gallstones when this is cleared Plan: As per H&P Additional Discussion: Patient has POLST and DPOA, records requested Code Status: Attempt Resuscitation Time spent on advance care plannin
--- NOTE | 2025-06-12 15:08 | CONSULTATION NOTE ---
Referring Provider Name of Referring Provider:: Dr. Vanegas Consult Date: 06/12/25 Chief Complaint Chief Complaint Chief Complaint: Abdominal pain History of Present Illness History Obtained From History obtained from: Patient History of Present Illness HPI Comment/Other: 74 year old male with PMH of HTN that presented to the ER on 06/12 for severe abdominal pain that started 3-4 days ago accompanied by nausea. Since admission his pain has improved but states that it is still present and significant. He says he drinks 1 beer a day for the past 40 years and then on occasion when he has difficulty sleeping he may have a single shot of Vodka. He denies excessive EtOH intake. He had a similar pain episode a few months ago but he was sent home from the ED and it resolved on its own. In the ED he was found to have WBC of 9.5, Lipase of 1840 and elevated LFT's with T bili 3.8. CT was done which demonstrated acute pancreatitis for which he was admitted to medicine. He currently denies any nausea, vomiting, chest pain, SOB, fevers or chills. Surgical hx includes sinus surgery but no abdominal surgeries. PFSH Active Problems All Active Problems (Updated 06/12/25 @ 11:12 by Kenya Peterson) Elevated LFTs (Acute) Cholecystitis (Acute) Pancreatitis (Acute) Seasonal allergies (Acute) Nevus (Acute) Rash (Acute) Generalized abdominal discomfort (Acute) Hypertriglyceridemia (Acute) Balance problems (Acute) Tinnitus, bilateral (Acute) Alcohol abuse (Acute) Diarrhea (Acute) Mixed hyperlipidemia (Acute) Essential (primary) hypertension (Acute) GERD (gastroesophageal reflux disease) (Acute) Chronic obstructive pulmonary disease (Chronic) Depression (Acute) Medical History Medical History (Updated 06/12/25 @ 11:12 by Kenya Peterson) Chronic sinusitis Insomnia Fall Grief reaction acute-'s in 07/2023 H/O bee sting allergy Sweating abnormality Erectile dysfunction due to arterial insufficiency Traumatic arthritis of left ankle injury 2010 falling off ladder Bee sting allergy 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 01/2009 MRI w DJD, DDD, T11 abnml signal, ?bony mets, 03/2009 had bone scan and intense radio-upt entire vertebral body suggestive of Pagets. Seen by [facility] for possible biphosphonates. Dysphagia chronic/progressive for months. asso w asp and cough. Swallow study nml 09/2019. seen by ENT 02/2020. chronic nasal obs. 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 Basal cell carcinoma nose Fasting hyperglycemia PVC's (premature ventricular contractions) History of cigarette smoking Left calcaneal fracture Surgical History Surgical History H/O esophagogastroduodenoscopy 09/2022, mild chronic inflammation H/O colonoscopy 03/2021, hyperplastic polyp + sigmoid diverticulosis H/O reduction of closed fracture 04/2010, left subtalar fracture, non-op RX for calcaneous + cuboid fractures H/O colonoscopy 07/2008, hyperplastic polyp H/O sinus surgery x2 Family History Family History Father CVA (cerebral vascular accident) Mother Cancer Brother Pulmonary embolism Brother Carbon monoxide poisoning Son Well adult exam Daughter Well adult exam Social History Social History (Updated 06/12/25 @ 14:57 by Kenya Peterson) Smoking Status: Unknown if ever smoked If you are a former smoker, when did you quit? (Date/Year): 2019 Number of Years Smoked: 20 How many cigarettes a day do you smoke? (20 cigarettes=1 Pk): 20 Second hand tobacco smoke exposure: No Do you dip or chew tobacco?: No Do you vape?: No Patient requests smoking cessation consult: No Initiate information on smoking cessation: No Living arrangement: At home Marital Status: Living Condition: Alone Support Person: Yes Living Situation Details: Lives in his [place] home [place]. Son in [facility], daughter here on [place] Has a Durable Power of Last Code Striper for Health Care?: Yes Name / Relationship: /Daughter Physical Activity: None and Walking Level: Independent Physical - Functional Details: Fallen several times this year due to lack of balance. No cane, no walker. Drives a car. Still pays bills. Still does yard work. Do you feel safe in your home environment?: Yes History of physical, verbal, emotional, or financial abuse?: No ETOH Use: Beer and Liquor Frequency: Occasional ETOH - Additional Notes: has one beer with neighbor daily "beer-thirty", 2 vodkas a night before bed Substance Use: denies use Substance Use Details: aleve, vitamin c, mulit-vitamin, instaflex, prevagen professional, CoQ10, Krill oil Are you sexually active?: No Occupation - Current: [employer], [employer], [employer] Retired: Yes Service: Yes POLST Patient has POLST: No Meds/Allgy Home Medications Ambulatory Orders Medication Instructions Recorded Confirmed albuterol sulfate 90 mcg/actuation 2 puff inhalation Q ID PRN 07/20/24 06/11/25 aerosol inhaler (Ventolin HFA) shortness of breath or wheezing lbygdnst-by-yjnkh 300 mcg-K 60 1 tab PO QDAY #30 tabs 07/20/24 06/11/25 mcg-lycop 600 mcg-lutein 300 mcg tablet (Centrum Silver Ultra Men's) albuterol sulfate 2.5 mg/3 mL 2.5 mg inhalation Q4H MD N 08/05/24 06/11/25 (0.083 %) solution for nebulization shortness of breat h or wheezing irbesartan 300 1 tab PO QDAY #90 tabs 08/2206/11/25 mg-hydrochlorothiazide 12.5 mg tablet epinephrine 0.3 mg/0.3 mL 0.3 mg (0.3 mL) IM ONCE PRN 11/26/24 06/11/25 injection, auto-injector (EpiPen anaphylaxis #2 ea 2-Tobias) furosemide 20 mg tablet 20 mg PO QDAY #90 tabs 01/1706/11/25 pantoprazole 40 mg tablet,delayed 40 mg PO QDAY #90 ta bs 02/10/25 06/11/25 release atorvastatin 80 mg tablet (Lipitor) 80 mg PO QDAY #90 tabs 02/17/25 06/11/25 metoprolol succinate 50 mg 50 mg PO QDAY #90 tabs 02/1906/11/25 tablet,extended release 24 hr naproxen sodium 220 mg capsule 220 mg PO BID PRN pain 06/12/25 06/12/25 (Aleve) sertraline 100 mg tablet 100 mg PO DAILY 06/12/25 Allergies Allergies Allergy/AdvReac Type Severity Reaction Status Date / Time bee venom protein (honey bee) Allergy Severe Anaphylaxis Verified 03/13/25 14:03 Penicillins Allergy Severe Itching Verified 03/13/25 14:03 sulfamethoxazole (From Allergy Severe Hives Verified 03/13/25 14:03 Bactrim) trimethoprim (From Bactrim) Allergy Severe Hives Verified 03/13/25 14:03 Results Lab Results Lab results reviewed: Yes 06/12/25 07:55 06/12/25 07:55 Other Lab Results: Lab Results x24hrs 06/12/25 06/12/25 06/12/25 Range/Units 07:55 06:03 06:03 WBC 10.5 (4.8-10.8) x10^3/uL RBC 4.25 L (4.70-6.10) 10^6/uL Hgb 13.0 L (14.0-18.0) g/dL Hct 38.2 L (42.0-52.0) % MCV 89.9 (80.0-94.0) fL MCH 30.6 (27.0-31.0) pg MCHC 34.0 (32.0-36.0) g/dL RDW 17.7 H (12.0-15.0) % Plt Count 119 L (130-450) 10^3/uL MPV 11.2 (7.4-11.4) fL Neut # (Auto) (1.5-6.6) 10^3/uL Lymph # (Auto) (1.5-3.5) 10^3/uL [facility] # (Auto) (0.0-1.0) 10^3/uL Eos # (Auto) (0.0-0.7) 10^3/uL Baso # (Auto) (0.0-0.1) 10^3/uL Absolute Nucleated RBC x10^3/uL Nucleated RBC % /100WBC Sodium 135 (135-145) mmol/L Potassium 4.1 (3.5-4.5) mmol/L Chloride 102 (101-111) mmol/L Carbon Dioxide 27 (21-32) mmol/L Anion Gap 6.0 (6-13) BUN 23 H (6-20) mg/dL Creatinine 1.5 H (0.6-1.3) mg/dL Estimated GFR (MDRD) 46 L (>89) Glucose 100 (74-104) mg/dL Estimat Average Glucose 131 H (70-100) mg/dL Hemoglobin A1c % 6.2 H (4.27-6.07) % Calcium 8.1 L (8.5-10.3) mg/dL Total Bilirubin 3.6 H 3.6 H (0.2-1.0) mg/dL Direct Bilirubin 2.42 H (0.03-0.18) mg/dL Indirect Bilirubin 1.2 mg/dL AST 908 H (10-42) IU/L ALT 691 H (10-60) IU/L Alkaline Phosphatase 152 H (42-121) IU/L Total Protein 5.8 L (6.4-8.9) g/dL Albumin 2.8 L (3.2-5.5) g/dL Globulin 3.0 (2.1-4.2) g/dL Albumin/Globulin Ratio 0.9 L (1.0-2.2) Triglycerides 180 181 mg/dL Cholesterol 157 ( - 200) mg/dL LDL Cholesterol, Calc 111 ( - 129) mg/dL VLDL Cholesterol 36 mg/dL HDL Cholesterol 10 L (60 - ) mg/dL LDL/HDL Ratio 11.1 (<3.6) Cholesterol/HDL Ratio 15.7 (<5.0) Lipase (11-82) U/L TSH 1.44 (0.34-5.60) uIU/mL Urine Color Urine Clarity (CLEAR) Urine pH (5.0-7.5) PH Ur Specific [place] (1.002-1.030) Urine Protein (NEGATIVE) mg/dL Urine Glucose (UA) (NEGATIVE) mg/dL Urine Ketones (NEGATIVE) mg/dL Urine Occult Blood (NEGATIVE) Urine Nitrite (NEGATIVE) Urine Bilirubin (NEGATIVE) Urine Urobilinogen (NORMAL) E.U./dL Ur Leukocyte Esterase (NEGATIVE) Urine RBC (0-5) /HPF Urine WBC (0-3) /HPF Ur Squamous Epith Cells (<= Few) Urine Bacteria (None Seen) /HPF Urine Casts /LPF Urine Mucus Ur Microscopic Review Urine Culture Comments 06/11/25 Range/Units 23:48 WBC 9.5 (4.8-10.8) x10^3/uL RBC 4.51 L (4.70-6.10) 10^6/uL Hgb 13.9 L (14.0-18.0) g/dL Hct 40.1 L (42.0-52.0) % MCV 88.9 (80.0-94.0) fL MCH 30.8 (27.0-31.0) pg MCHC 34.7 (32.0-36.0) g/dL RDW 17.2 H (12.0-15.0) % Plt Count 129 L (130-450) 10^3/uL MPV 11.4 (7.4-11.4) fL Neut # (Auto) 7.1 H (1.5-6.6) 10^3/uL Lymph # (Auto) 1.5 (1.5-3.5) 10^3/uL [facility] # (Auto) 0.7 (0.0-1.0) 10^3/uL Eos # (Auto) 0.1 (0.0-0.7) 10^3/uL Baso # (Auto) 0.1 (0.0-0.1) 10^3/uL Absolute Nucleated RBC 0.00 x10^3/uL Nucleated RBC % 0.0 /100WBC Sodium 135 (135-145) mmol/L Potassium 4.0 (3.5-4.5) mmol/L Chloride 100 L (101-111) mmol/L Carbon Dioxide 27 (21-32) mmol/L Anion Gap 8.0 (6-13) BUN 26 H (6-20) mg/dL Creatinine 1.6 H (0.6-1.3) mg/dL Estimated GFR (MDRD) 43 L (>89) Glucose 114 H (74-104) mg/dL Estimat Average Glucose (70-100) mg/dL Hemoglobin A1c % (4.27-6.07) % Calcium 8.5 (8.5-10.3) mg/dL Total Bilirubin 3.8 H (0.2-1.0) mg/dL Direct Bilirubin (0.03-0.18) mg/dL Indirect Bilirubin mg/dL AST 1097 H (10-42) IU/L ALT 810 H (10-60) IU/L Alkaline Phosphatase 163 H (42-121) IU/L Total Protein 6.2 L (6.4-8.9) g/dL Albumin 3.0 L (3.2-5.5) g/dL Globulin 3.2 (2.1-4.2) g/dL Albumin/Globulin Ratio 0.9 L (1.0-2.2) Triglycerides mg/dL Cholesterol ( - 200) mg/dL LDL Cholesterol, Calc ( - 129) mg/dL VLDL Cholesterol mg/dL HDL Cholesterol (60 - ) mg/dL LDL/HDL Ratio (<3.6) Cholesterol/HDL Ratio (<5.0) Lipase 1840 H (11-82) U/L TSH (0.34-5.60) uIU/mL Urine Color DARK YELLOW Urine Clarity CLEAR (CLEAR) Urine pH 6.0 (5.0-7.5) PH Ur Specific [place] 1.020 (1.002-1.030) Urine Protein 100 H (NEGATIVE) mg/dL Urine Glucose (UA) NEGATIVE (NEGATIVE) mg/dL Urine Ketones NEGATIVE (NEGATIVE) mg/dL Urine Occult Blood MODERATE (NEGATIVE) Urine Nitrite NEGATIVE (NEGATIVE) Urine Bilirubin NEGATIVE (NEGATIVE) Urine Urobilinogen 0.2 (NORMAL) (NORMAL) E.U./dL Ur Leukocyte Esterase NEGATIVE (NEGATIVE) Urine RBC 0-5 (0-5) /HPF Urine WBC 0-3 (0-3) /HPF Ur Squamous Epith Cells FEW Squamous (<= Few) Urine Bacteria Few (None Seen) /HPF Urine Casts 3-5 Course Granular /LPF Urine Mucus Few Strands Ur Microscopic Review INDICATED Urine Culture Comments NOT INDICATED Diagnostic Imaging Results Diagnostic Imaging Results: positive Final report reviewed Review of Systems Status of ROS: 10 or more systems reviewed and unremarkable except as noted in history and below Exam Exam Vital Signs: Vital Signs x48h Temp Pulse Resp BP Pulse Ox 06/12/25 12:00 36.7 C 78 20 135/78 H 94 06/12/25 09:00 38.4 C H 06/12/25 08:00 36.7 C 85 20 140/80 H 94 Constitutional normal general appearance and no apparent distress HENMT normocephalic and head/scalp atraumatic Eyes conjunctivae normal and no scleral icterus Neck/C-Spine visual inspection normal Respiratory normal respiratory effort Cardiovascular normal heart rate noted and regular rhythm noted Gastrointestinal abdomen normal to inspection, abdomen soft to palpation and tender to palpation (moderate) and (epigastric) Extremities normal to inspection Neurology GCS 15 Psychiatry cooperative and affect normal Skin skin color normal Conclusion/Plan Problem List (1) Pancreatitis: Plan: Unsure if his pancreatitis is caused by his alcohol use or his gallstones/sludge seen on imaging. If his bilirubin continues down will discuss more with the patient about cessation of his EtOH intake. If the feeling is that this is from his gallstones and not his EtOH use will consider cholecystectomy. If his bilirubin trends up will offer him and ERCP with possible stent placement to allow for biliary decompression while his pancreatitis resolves. - NPO w/ IVF - Supportive care for pancreatitis - Please continue to trend his LFT's daily for now - Rest of care per primary, surgery will continue to follow Lab Results Lab results reviewed: Yes 06/12/25 07:55 06/12/25 07:55 Diagnostic Imaging Results Diagnostic Imaging Results: positive Final report reviewed
[2025-06-12] MEDS: METOPROLOL 5 MG/5 ML VIAL IVP PRN (16:03)
[2025-06-12] MEDS: LACTATED RINGERS 500 ML IV ONE (16:38)
[2025-06-12] MEDS: METOPROLOL 5 MG/5 ML VIAL IVP STA (16:41)
[2025-06-12] MEDS: ACETAMINOPHEN 325 MG TABLET PO PRN (17:24)
[2025-06-13] MEDS: MAGNESIUM SULFATE 2 GRAM 2 GM/50 ML BAG IV ONE (00:02)
[2025-06-13 05:10] LABS: HCV AB Non Reactive (Non Reactive); HEPATITIS B CORE IGM AB Negative (Negative)
[2025-06-13 05:27] LABS: HCT - HEMATOCRIT 37.5 % (42.0-52.0); HGB - HEMOGLOBIN 13.0 g/dL (14.0-18.0); MEAN PLATELET VOLUME 11.8 fL (7.4-11.4); NRBC ABSOLUTE COUNT (AUTO) 0.00 x10^3/uL; NUCLEATED RED BLOOD CELLS AUTO 0.0 /100WBC; PLT - PLATELET COUNT 103 10^3/uL (130-450); RED CELL DISTRIBUTION WIDTH 18.1 % (12.0-15.0)
[2025-06-13 05:46] LABS: ALT ALANINE AMINOTRANSFERASE 474.0 IU/L (10-60); AST ASPARTATE AMINOTRANSFERASE 610.0 IU/L (10-42); BUN - BLOOD UREA NITROGEN 19.0 mg/dL (6-20); CARBON DIOXIDE - CO2 31.0 mmol/L (21-32); CREATININE 1.5 mg/dL (0.6-1.3); GFR - MDRD 46.0 (>89)
--- NOTE | 2025-06-13 10:05 | PROVIDER PROGRESS NOTE ---
<Statement entered by Yoan Valentin DNP - 06/13/25 19:43> Patient was seen and examined by me with a separate encounter after being seen by APRIL student. I reviewed the student's documentation including patient history, physical examination, laboratory, imaging, clinical assessment and treatment plan. I have discussed the management of the patient with the student, and with the patient. There are no changes. ERCP today, no evidence of cholecystitis. Continue to manage pancreatitis with n.p.o., aggressive IVF, as needed IV Dilaudid. Rate controlled with metoprolol. Requesting cardiology records Subjective Prog Note Date Prog Note Date: 06/13/25 Prog Note Time: 09:54 Subjective Pt reports feeling: Improved Subjective: Chuck Aiken is a 74 year old male that presented to the ER on 06/12 for severe abdominal pain. He began feeling burning pain accompanied by nausea that started 3-4 days before admission. Pt admitted 06/12 around 0500 for suspected acute pancreatitis complicated by gallstone involvement. No sign of necrosis or infection noted at time of admission. RN reported 38.4 C fever 06/12 AM. Pt denies any events/changes overnight. He says he slept as well as he could at the hospital. Currently he reports improved pain. Doing well on acetaminophen. Last dose of hydromorphone was 06/12 AM. Mild epigastric discomfort that worsens with palpation to epigastric and RUQ. ROS: Denies fever, chills, night sweats, nausea, vomiting, changes in bowel habits Reports mild epigastric abdominal pain. Denies chest tightness, chest pain, palpitations, shortness of breath Pt had an episode of Afib with RVR on 06/12 PM. He states that he has paroxsysmal Afib at baseline. Current Medications Current Medications Current Medications: Current Medications Generic Name Dose Route Start Last Admin Trade Name Freq PRN Reason Stop Dose Admin Acetaminophen 650 mg 06/12/25 09:12 06/13/25 08:21 Acetaminophen 325 Mg Tablet PO 650 mg Q4HR PRN Administration Pain or Fever > 38C (100.4F) Albuterol 2.5 mg 06/12/25 05:05 Albuterol Neb 2.5 Mg/3 Ml INH Q4H PRN shortness of breath or wheezing Benzonatate 100 mg 06/12/25 05:09 Benzonatate 100 Mg Capsule PO TID PRN Cough Hydromorphone HCl 0.5 mg 06/12/25 09:34 Hydromorphone 0.5 Mg/0.5 Ml Syringe IVP Q4H PRN Severe Pain (Level 7-10) Lactated Ringer's 1,000 mls @ 150 mls/hr 06/12/25 06:00 06/13/25 09:15 Lr IV 150 mls/hr .Q6H40M JERRICA Administration Lactobacillus Rhamnosus 1 cap 06/12/25 09:00 06/13/25 08:22 Lactobacillus Rhamnosus Gg Capsule PO 1 cap DAILY JERRICA Administration Lorazepam 1 mg 06/12/25 17:10 Lorazepam 1 Mg Tablet PO Q1H PRN CIWA > 8 Protocol Losartan Potassium 100 mg 06/12/25 09:00 06/13/25 08:21 Losartan 50 Mg Tablet PO 100 mg DAILY JERRICA Administration Melatonin 3 mg 06/12/25 05:09 Melatonin 3 Mg Tablet PO QPM PRN sleep Metoprolol Succinate 50 mg 06/12/25 09:00 06/13/25 08:22 Metoprolol Succinate 50 Mg Tablet PO 50 mg DAILY JERRICA Administration Metoprolol Tartrate 5 mg 06/12/25 15:49 06/12/25 16:03 Metoprolol 5 Mg/5 Ml Vial IVP 5 mg Q6H PRN Administration HR holly >120 Multivitamins/Minerals 1 tab 06/12/25 08:00 06/13/25 08:22 Multivitamin W/Minerals Tablet PO 1 tab DAILYWM JERRICA Administration Nitroglycerin 0.4 mg 06/12/25 05:09 Nitroglycerin Sl 0.4 Mg Tablet SL Q5MIN PRN Chest Pain Ondansetron HCl 4 mg 06/12/25 05:05 Ondansetron Odt 4 Mg Tablet PO Q8H PRN nausea and vomiting Pantoprazole Sodium 40 mg 06/12/25 07:00 06/13/25 05:25 Pantoprazole 40 Mg Tablet PO 40 mg Q24H JERRICA Administration Objective Vital Signs/Intake & Output Reviewed Vital Signs: Yes Vital Signs: Vital Signs x48h Temp Pulse Resp BP Pulse Ox 06/13/25 08:00 37.1 C 89 18 149/87 H 94 06/13/25 04:00 36.6 C 93 17 153/81 H 95 Intake & Output: Intake & Output 06/10/25 06/11/25 06/12/25 06/13/25 23:59 23:59 23:59 23:59 Intake Total 2621 / 2621 2049 Output Total 250 / 250 Balance 237 / [id number] Weight (kg) 114.4 kg 108 kg Objective General Appearance: positive No acute distress and Alert Eyes Bilateral: positive Normal inspection, PERRL, EOMI, Conjunctivae nml and No scleral icterus Cardiovascular: positive Regular rate & rhythm, No murmur and No gallop; negative Friction rub Peripheral Pulses: 2+: Radial (R), 2+: Radial (L), 2+: Dorsalis pedis (R) and 2+: Dorsalis pedis (L) Abdomen: positive Nml bowel sounds, Tenderness (epigastric and RUQ), Guarding (epigastric), Rebound (tenderness in RUQ) and Hepatomegaly; negative No distention Skin: positive Color nml Extremities: positive No pedal edema Neurologic/Psychiatric: positive Oriented x3 and Mood/affect nml Lab Results 06/13/25 05:19 06/13/25 05:19 Other Labs: Lab Results x24hrs 06/13/25 06/12/25 06/12/25 Range/Units 05:19 07:55 06:03 WBC 13.5 H (4.8-10.8) x10^3/uL RBC 4.17 L (4.70-6.10) 10^6/uL Hgb 13.0 L (14.0-18.0) g/dL Hct 37.5 L (42.0-52.0) % MCV 89.9 (80.0-94.0) fL MCH 31.2 H (27.0-31.0) pg MCHC 34.7 (32.0-36.0) g/dL RDW 18.1 H (12.0-15.0) % Plt Count 103 L (130-450) 10^3/uL MPV 11.8 H (7.4-11.4) fL Neut # (Auto) 11.3 H (1.5-6.6) 10^3/uL Lymph # (Auto) 1.1 L (1.5-3.5) 10^3/uL Burt # (Auto) 0.9 (0.0-1.0) 10^3/uL Eos # (Auto) 0.2 (0.0-0.7) 10^3/uL Baso # (Auto) 0.1 (0.0-0.1) 10^3/uL Absolute Nucleated RBC 0.00 x10^3/uL Nucleated RBC % 0.0 /100WBC Sodium 137 (135-145) mmol/L Potassium 4.3 (3.5-4.5) mmol/L Chloride 101 (101-111) mmol/L Carbon Dioxide 31 (21-32) mmol/L Anion Gap 5.0 L (6-13) BUN 19 (6-20) mg/dL Creatinine 1.5 H (0.6-1.3) mg/dL Estimated GFR (MDRD) 46 L (>89) Glucose 89 (74-104) mg/dL Estimat Average Glucose 131 H (70-100) mg/dL Hemoglobin A1c % 6.2 H (4.27-6.07) % Calcium 8.2 L (8.5-10.3) mg/dL Magnesium 1.9 1.5 L (1.7-2.3) mg/dL Total Bilirubin 3.8 H (0.2-1.0) mg/dL Direct Bilirubin 2.26 H (0.03-0.18) mg/dL AST 610 H (10-42) IU/L ALT 474 H (10-60) IU/L Alkaline Phosphatase 166 H (42-121) IU/L Total Protein 5.6 L (6.4-8.9) g/dL Albumin 2.6 L (3.2-5.5) g/dL Globulin 3.0 (2.1-4.2) g/dL Albumin/Globulin Ratio 0.9 L (1.0-2.2) Hepatitis A IgM Ab (Negative) Hep Bs Antigen (Negative) Hep B Core IgM Ab (Negative) Hepatitis C Antibody (Non Reactive) Hepatitis C Interp (.) 06/11/25 Range/Units 23:48 WBC (4.8-10.8) x10^3/uL RBC (4.70-6.10) 10^6/uL Hgb (14.0-18.0) g/dL Hct (42.0-52.0) % MCV (80.0-94.0) fL MCH (27.0-31.0) pg MCHC (32.0-36.0) g/dL RDW (12.0-15.0) % Plt Count (130-450) 10^3/uL MPV (7.4-11.4) fL Neut # (Auto) (1.5-6.6) 10^3/uL Lymph # (Auto) (1.5-3.5) 10^3/uL Burt # (Auto) (0.0-1.0) 10^3/uL Eos # (Auto) (0.0-0.7) 10^3/uL Baso # (Auto) (0.0-0.1) 10^3/uL Absolute Nucleated RBC x10^3/uL Nucleated RBC % /100WBC Sodium (135-145) mmol/L Potassium (3.5-4.5) mmol/L Chloride (101-111) mmol/L Carbon Dioxide (21-32) mmol/L Anion Gap (6-13) BUN (6-20) mg/dL Creatinine (0.6-1.3) mg/dL Estimated GFR (MDRD) (>89) Glucose (74-104) mg/dL Estimat Average Glucose (70-100) mg/dL Hemoglobin A1c % (4.27-6.07) % Calcium (8.5-10.3) mg/dL Magnesium (1.7-2.3) mg/dL Total Bilirubin (0.2-1.0) mg/dL Direct Bilirubin (0.03-0.18) mg/dL AST (10-42) IU/L ALT (10-60) IU/L Alkaline Phosphatase (42-121) IU/L Total Protein (6.4-8.9) g/dL Albumin (3.2-5.5) g/dL Globulin (2.1-4.2) g/dL Albumin/Globulin Ratio (1.0-2.2) Hepatitis A IgM Ab Negative (Negative) Hep Bs Antigen Negative (Negative) Hep B Core IgM Ab Negative (Negative) Hepatitis C Antibody Non Reactive (Non Reactive) Hepatitis C Interp Comment (.) Relevant Lab History: 06/11 06/12 06/13 Total Bilirubin 3.8 H 3.6 H(+) 3.8 H Direct Bilirubin 2.42 H 2.26 H Indirect Bilirubin 1.2 AST 1097 H 908 H 610 H ALT 810 H 691 H 474 H Diagnostic Imaging Diagnostic Imaging Results: positive Prelim report reviewed and Final report reviewed Assessment/Plan Problem List (1) Pancreatitis: Impression: Pt admitted on 06/12 for 3-4 days of severe burning epigastric abdominal pain. Pt given 0.25 mg hydromorphone at 06:25 on day of admission. RN reported pt had a low grade fever of 38.4C, IV acetaminophen started at 09:31 on 06/12. US completed and review by radiologists. Radiologist impression: moderate suspicious for acute cholecystitis and hepatomegaly. 06/12 AM - Pain was 6/10. 06/12 AM MD increased hydromorphone dose to 0.5 mg for improved pain management and discontinued home meds (hydrochlorothiazide and furosemide) to maintain patient fluids. 06/12 PM - Patient developed Afib with RVR that was resolved after metoprolol and LR bolus. Fluid rate increased to 150mL/hr. Pt assessed for alcohol withdrawal symptoms 06/12 and given Lorazepam 1 mg and acetaminophen. Total bilirubin 3.8 (H), 3.6 (H), and 3.8 (H). Direct Bilirubin has decreased, Indirect Bilirubin has increased. AST and ALTs have gone down. - continue administering fluids: LRs 150 mL/hr - continue monitoring vitals, IOs, and daily labs (CBC, CMP, Mg) ERCP completed around 13:06/13, with no complications - stent placed along common bile duct - two duodenal lipomas present. One large lipoma partially obstructing duodenal papilla - Likely post-op stay 2-3 days. (2) Atrial fibrillation with RVR: Impression: 06/12 PM - Patient developed Afib with RVR. Obtained rate control after 2 x metoprolol 5mg IV and 500 mL LR bolus. Pt reported having a history of paroxsymal Afib. No history documented in chart. Pt has a history of hypertension, COPD, and alcohol abuse. - continue to telemonitor pt - continue metoprolol succinate 50 mg PO daily for rate control (3) Cholecystitis: Impression: Resolved :06/13 Cholecystitis suspected on 06/12 US. Plan for ERCP around 11:15 06/13 ERCP completed around 13:06/13, with no complications - no apparent cholecystitis (4) Elevated LFTs: Impression: Recommend follow-up OP monitoring. Recommend follow-up OP US.
[2025-06-13] MEDS ORDERED: IOHEXOL IVP ONE (12:06)
[2025-06-13] MEDS ORDERED: PROPOFOL 200 MG/20 ML VIAL IVP ONE (12:17)
--- NOTE | 2025-06-13 12:17 | ANESTHESIA PROCEDURE NOTE ---
Pre-Anesthesia VS, & Labs Diagnosis Surgical Diagnosis:: Pancreatitis Procedure Procedure: ERCP Vitals Vital Signs: Temp Pulse Resp BP Pulse Ox 37.1 C 89 18 149/87 H 94 06/13/25 08:00 06/13/25 08:00 06/13/25 08:00 06/13/25 08:00 06/13/25 08:00 NPO NPO: >8 hours Lab Results Current Lab Results: Laboratory Tests 06/13/25 05:19: WBC 13.5 H, RBC 4.17 L, Hgb 13.0 L, Hct 37.5 L, MCV 89.9, MCH 31.2 H, MCHC 34.7, RDW 18.1 H, Plt Count 103 L, MPV 11.8 H, Neut # (Auto) 11.3 H , Lymph # (Auto) 1.1 L, [place] # (Auto) 0.9, Eos # (Auto) 0.2, Baso # (Auto) 0.1, Absolute Nucleated RBC 0.00, Nucleated RBC % 0.0, Sodium 137, Potassium 4.3, Chloride 101, Carbon Dioxide 31, Anion Gap 5.0 L, BUN 19, Creatinine 1.5 H, E stimated GFR (MDRD) 46 L, Glucose 89, Calcium 8.2 L, Magnesium 1.9, Total Bilirubin 3.8 H, Direct Bilirubin 2.26 H, AST 610 H, ALT 474 H, Alkaline Phosphatase 166 H, Total Protein 5.6 L, Albumin 2.6 L, Globulin 3.0, A lbumin/Globulin Ratio 0.9 L 06/12/25 07:55: WBC 10.5, RBC 4.25 L, Hgb 13.0 L, Hct 38.2 L, MCV 89.9, MCH 30.6, MCHC 34.0, RDW 17.7 H, Plt Count 119 L, MPV 11.2, Sodium 135, Potassium 4.1, Chloride 102, Carbon Dioxide 27, Anion Gap 6.0, BUN 23 H, Creatinine 1.5 H, Estimated GFR (MDRD) 46 L, Glucose 100, Calcium 8.1 L, Magnesium 1.5 L, Total Bilirubin 3.6 H, AST 908 H, ALT 691 H, Alkaline Phosphatase 152 H, Total Protein 5.8 L, Albumin 2.8 L, Globulin 3.0, Albumin/Globulin Ratio 0.9 L 06/12/25 06:03: Triglycerides 180, Cholesterol 157, LDL Cholesterol, Calc 111, VLDL Cholesterol 36, HDL Cholesterol 10 L, LDL/HDL Ratio 11.1, Cholesterol/HDL Ratio 15.7, TSH 1.44 06/12/25 06:03: Estimat Average Glucose 131 H, Hemoglobin A1c % 6.2 H, Total Bilirubin 3.6 H, Direct Bilirubin 2.42 H, Indirect Bilirubin 1.2, Triglycerides 181 06/11/25 23:48: WBC 9.5, RBC 4.51 L, Hgb 13.9 L, Hct 40.1 L, MCV 88.9, MCH 30.8, MCHC 34.7, RDW 17.2 H, Plt Count 129 L, MPV 11.4, Neut # (Auto) 7.1 H, Lymph # (Auto) 1.5, [place] # (Auto) 0.7, Eos # (Auto) 0.1, Baso # (Auto) 0.1, Absolute Nucleated RBC 0.00, Nucleated RBC % 0.0, Sodium 135, Potassium 4.0, Chloride 100 L, Carbon Dioxide 27, Anion Gap 8.0, BUN 26 H, Creatinine 1.6 H, Estimated GFR (MDRD) 43 L, Glucose 114 H, Calcium 8.5, Total Bilirubin 3.8 H, AST 1097 H, ALT 810 H, Alkaline Phosphatase 163 H, Total Protein 6.2 L, Albumin 3.0 L, Globulin 3.2, Albumin/Globulin Ratio 0.9 L, Lipase 1840 H Lab results reviewed: Yes 06/13/25 05:19 06/13/25 05:19 Meds/Allgy Home Medications Ambulatory Orders Medication Instructions Recorded Confirmed albuterol sulfate 90 mcg/actuation 2 puff inhalation Q ID PRN 07/20/24 06/11/25 aerosol inhaler (Ventolin HFA) shortness of breath or wheezing wralyyph-da-oxozn 300 mcg-K 60 1 tab PO QDAY #30 tabs 07/20/24 06/11/25 mcg-lycop 600 mcg-lutein 300 mcg tablet (Centrum Silver Ultra Men's) albuterol sulfate 2.5 mg/3 mL 2.5 mg inhalation Q4H IL N 08/05/24 06/11/25 (0.083 %) solution for nebulization shortness of breat h or wheezing irbesartan 300 1 tab PO QDAY #90 tabs 08/2206/11/25 mg-hydrochlorothiazide 12.5 mg tablet epinephrine 0.3 mg/0.3 mL 0.3 mg (0.3 mL) IM ONCE PRN 11/26/24 06/11/25 injection, auto-injector (EpiPen anaphylaxis #2 ea 2-Tobias) furosemide 20 mg tablet 20 mg PO QDAY #90 tabs 01/1706/11/25 pantoprazole 40 mg tablet,delayed 40 mg PO QDAY #90 ta bs 02/10/25 06/11/25 release atorvastatin 80 mg tablet (Lipitor) 80 mg PO QDAY #90 tabs 02/17/25 06/11/25 metoprolol succinate 50 mg 50 mg PO QDAY #90 tabs 02/1906/11/25 tablet,extended release 24 hr naproxen sodium 220 mg capsule 220 mg PO BID PRN pain 06/12/25 06/12/25 (Aleve) sertraline 100 mg tablet 100 mg PO DAILY 06/12/25 Allergies Allergies Allergy/AdvReac Type Severity Reaction Status Date / Time bee venom protein (honey bee) Allergy Severe Anaphylaxis Verified 03/13/25 14:03 Penicillins Allergy Severe Itching Verified 03/13/25 14:03 sulfamethoxazole (From Allergy Severe Hives Verified 03/13/25 14:03 Bactrim) trimethoprim (From Bactrim) Allergy Severe Hives Verified 03/13/25 14:03 PFSH Active Problems All Active Problems Elevated LFTs (Acute) Cholecystitis (Acute) Pancreatitis (Acute) Seasonal allergies (Acute) Nevus (Acute) Rash (Acute) Generalized abdominal discomfort (Acute) Hypertriglyceridemia (Acute) Balance problems (Acute) Tinnitus, bilateral (Acute) Alcohol abuse (Acute) Diarrhea (Acute) Mixed hyperlipidemia (Acute) Essential (primary) hypertension (Acute) GERD (gastroesophageal reflux disease) (Acute) Chronic obstructive pulmonary disease (Chronic) Depression (Acute) Medical History Medical History Plantar fasciitis Malignant neoplasm of prostate Sleep apnea Chronic sinusitis Insomnia Fall Grief reaction acute-'s in 07/2023 H/O bee sting allergy Sweating abnormality Erectile dysfunction due to arterial insufficiency Traumatic arthritis of left ankle injury 2009 falling off ladder Bee sting allergy 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 01/2009 MRI w DJD, DDD, T11 abnml signal, ?bony mets, 03/2009 had bone scan and intense radio-upt entire vertebral body suggestive of Pagets. Seen by [facility] for possible biphosphonates. Dysphagia chronic/progressive for months. asso w asp and cough. Swallow study nml 09/2019. seen by ENT 02/2020. chronic nasal obs. 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 Basal cell carcinoma nose Fasting hyperglycemia PVC's (premature ventricular contractions) History of cigarette smoking Left calcaneal fracture Surgical History Surgical History H/O esophagogastroduodenoscopy 09/2022, mild chronic inflammation H/O colonoscopy 03/2021, hyperplastic polyp + sigmoid diverticulosis H/O reduction of closed fracture 04/2010, left subtalar fracture, non-op RX for calcaneous + cuboid fractures H/O colonoscopy 07/2008, hyperplastic polyp H/O sinus surgery x2 Family History Family History Father CVA (cerebral vascular accident) Mother Cancer Brother Pulmonary embolism Brother Carbon monoxide poisoning Son Well adult exam Daughter Well adult exam Social History Social History Smoking Status: Unknown if ever smoked If you are a former smoker, when did you quit? (Date/Year): 2019 Number of Years Smoked: 20 How many cigarettes a day do you smoke? (20 cigarettes=1 Pk): 20 Second hand tobacco smoke exposure: No Do you dip or chew tobacco?: No Do you vape?: No Patient requests smoking cessation consult: No Initiate information on smoking cessation: No Living arrangement: At home Marital Status: Living Condition: Alone Support Person: Yes Living Situation Details: Lives in his own home on the [place]. Son in [facility], daughter here on [place] Has a Durable Power of Debt Recovery Officer for Health Care?: Yes Name / Relationship: /Daughter Physical Activity: None and Walking Level: Independent Physical - Functional Details: Fallen several times this year due to lack of balance. No cane, no walker. Drives a car. Still pays bills. Still does yard work. Do you feel safe in your home environment?: Yes History of physical, verbal, emotional, or financial abuse?: No ETOH Use: Beer and Liquor Frequency: Occasional ETOH - Additional Notes: has one beer with neighbor daily "beer-thirty", 2 vodkas a night before bed Substance Use: denies use Substance Use Details: aleve, vitamin c, mulit-vitamin, instaflex, prevagen professional, CoQ10, Krill oil Are you sexually active?: No Occupation - Current: [id number], [employer] Retired: Yes Service: Yes POLST Patient has POLST: No Anesthesia Exam (Expanded) Exam General: Alert and Oriented x3 Dental: WNL and Other (implants) Mouth Openin Fingerbreadth Neck Mobility: Normal Mallampati classification: II Thyromental Distance: 4-6 cm Respiratory: Lungs clear and Decreased breath sounds Cardiovascular: Regular rate Mental/Cognitive Status: Alert/Oriented X3 Cognitive Status: Within normal limits Exam Exam Vital Signs: Vital Signs x48h Temp Pulse Resp BP Pulse Ox 06/13/25 08:00 37.1 C 89 18 149/87 H 94 Constitutional normal general appearance Respiratory breath sounds equal bilaterally and normal respiratory effort SOB with exertion Cardiovascular normal heart rate noted Plan Problem List (1) Pancreatitis: Plan: Unsure if his pancreatitis is caused by his alcohol use or his gallstones/sludge seen on imaging. If his bilirubin continues down will discuss more with the patient about cessation of his EtOH intake. If the feeling is that this is from his gallstones and not his EtOH use will consider cholecystectomy. If his bilirubin trends up will offer him and ERCP with possible stent placement to allow for biliary decompression while his pancreatitis resolves. - NPO w/ IVF - Supportive care for pancreatitis - Please continue to trend his LFT's daily for now - Rest of care per primary, surgery will continue to follow (2) Cholecystitis: (3) Elevated LFTs: Plan Anesthesia Type: General Consent for Procedure(s) Verified and Reviewed: Yes Code Status: Attempt Resuscitation ASA Classification ASA classification: 3-Severe systemic disease Is this case an emergency?: No
[2025-06-13] MEDS ORDERED: ROCURONIUM 50 MG/5 ML VIAL ONE (12:18)
[2025-06-13] MEDS ORDERED: fentaNYL 100 MCG/2 ML VIAL ONE (12:18)
[2025-06-13] MEDS ORDERED: MIDAZOLAM 2 MG/2 ML VIAL ONE (12:18)
--- NOTE | 2025-06-13 12:18 | PROVIDER PROGRESS NOTE ---
Subjective General Admit Date: 06/12/25 Other Other Information/Narrative: Doing well today, still having pain but improving, denies any current nausea, vomiting, chest pain, SOB, fevers or chills. Labs this morning demonstrated elevation of his WBC, Bilirubin and alk phos concerning for choledocholithiasis. Review of Systems Status of ROS: 10 or more systems reviewed and unremarkable except as noted in history and below Exam Exam Vital Signs: Vital Signs x48h Temp Pulse Resp BP Pulse Ox 06/13/25 08:00 37.1 C 89 18 149/87 H 94 Constitutional normal general appearance and no apparent distress HENMT normocephalic and head/scalp atraumatic Eyes conjunctivae normal and no scleral icterus Neck/C-Spine visual inspection normal Respiratory normal respiratory effort Cardiovascular normal heart rate noted and regular rhythm noted Gastrointestinal abdomen normal to inspection, abdomen soft to palpation and tender to palpation (mild) and (epigastric) Extremities normal to inspection Neurology GCS 15 Psychiatry cooperative and affect normal Skin skin color normal Impression/Plan Problem List (1) Pancreatitis: Plan: Unsure if his pancreatitis is caused by his alcohol use or his gallstones/sludge seen on imaging. If his bilirubin continues down will discuss more with the patient about cessation of his EtOH intake. If the feeling is that this is from his gallstones and not his EtOH use will consider cholecystectomy. If his bilirubin trends up will offer him and ERCP with possible stent placement to allow for biliary decompression while his pancreatitis resolves. - NPO w/ IVF - ERCP today - Abx per primary - Please continue to trend his LFT's daily for now - Rest of care per primary, surgery will continue to follow (2) Cholecystitis: (3) Elevated LFTs:
[2025-06-13] MEDS ORDERED: PHENYLEPHRINE HCL 0.5 MG/5 ML AMPULE ONE (12:51)
[2025-06-13] MEDS ORDERED: GLUCAGON 1 MG/ML VIAL ONE (13:54)
[2025-06-13] MEDS ORDERED: SUGAMMADEX 200 MG/2 ML VIAL IVP ONE (14:17)
[2025-06-13] MEDS ORDERED: HYDROmorphone 0.5 MG/0.5 ML SYRINGE IVP PRN (14:41)
[2025-06-13] MEDS ORDERED: ATROPINE ABBOJECT 1 MG/10 ML SYRINGE IVP PRN (14:41)
[2025-06-13] MEDS ORDERED: ONDANSETRON 4 MG/2 ML VIAL IVP PRN ×2 (14:41→15:32)
[2025-06-13] MEDS ORDERED: NALOXONE 0.4 MG/ML VIAL IVP PRN (14:41)
[2025-06-13] MEDS ORDERED: fentaNYL 100 MCG/2 ML VIAL IVP PRN (14:41)
[2025-06-13] MEDS ORDERED: MORPHINE 2 MG/ML CARPUJECT IVP PRN (14:41)
[2025-06-13] MEDS ORDERED: METOCLOPRAMIDE 10 MG/2 ML VIAL IVP PRN (14:41)
[2025-06-13] MEDS ORDERED: ePHEDrine 50 MG/ML VIAL IVP PRN (14:41)
[2025-06-13] MEDS ORDERED: LACTATED RINGERS 1,000 ML IV SCH (15:00)
[2025-06-13] MEDS ORDERED: SODIUM CHLORIDE FLUSH 0.9% 10 ML SYRINGE IVP PRN (15:32)
--- NOTE | 2025-06-13 16:27 | ANESTHESIA POST OP EVALUATION ---
Anesthesia Post Eval Post Anesthesia Eval Vitals: Last Vital Signs Temp 36.5 C 06/13/25 14:55 Pulse 83 06/13/25 14:55 Resp 20 06/13/25 14:55 BP 115/88 06/13/25 14:55 Pulse Ox 95 06/13/25 14:55 CV Function Including HR & BP: Stable Pain Control: Satisfactory Nausea & Vomiting: Negative Mental Status: Baseline Respiratory Status: Airway Patent Hydration Status: Satisfactory Anesthesia Complications: None
[2025-06-13] MEDS: SODIUM CHLORIDE FLUSH 0.9% 10 ML SYRINGE IVP SCH (16:56)
[2025-06-13] MEDS: LACTATED RINGERS 1,000 ML IV SCH (16:56)
[2025-06-13] MEDS: MELATONIN 3 MG TABLET PO PRN (23:01)
[2025-06-14 05:51] LABS: HCT - HEMATOCRIT 35.3 % (42.0-52.0); HGB - HEMOGLOBIN 12.0 g/dL (14.0-18.0); MEAN PLATELET VOLUME 11.5 fL (7.4-11.4); NRBC ABSOLUTE COUNT (AUTO) 0.00 x10^3/uL; NUCLEATED RED BLOOD CELLS AUTO 0.0 /100WBC; PLT - PLATELET COUNT 76 10^3/uL (130-450); RED CELL DISTRIBUTION WIDTH 18.7 % (12.0-15.0)
[2025-06-14 06:12] LABS: BUN - BLOOD UREA NITROGEN 19.0 mg/dL (6-20); CARBON DIOXIDE - CO2 28.0 mmol/L (21-32); CREATININE 1.4 mg/dL (0.6-1.3); GFR - MDRD 50.0 (>89)
[2025-06-14] MEDS: HYDROmorphone 0.5 MG/0.5 ML SYRINGE IVP PRN (06:30)
--- NOTE | 2025-06-14 08:20 | PROVIDER PROGRESS NOTE ---
<Statement entered by Yoan Valentin DNP - 06/14/25 19:29> Patient was seen and examined by me with a separate encounter after being seen by APRIL student. I reviewed the student's documentation including patient history, physical examination, laboratory, imaging, clinical assessment and treatment plan. I have discussed the management of the patient with the student, and with the patient. There are no changes. Briefly, patient here for pancreatitis. Symptoms are improving, advancing diet. Plan for regular diet in morning and likely discharge Subjective Prog Note Date Prog Note Date: 06/14/25 Prog Note Time: 08:22 Subjective Pt reports feeling: Improved Subjective: 06/12 - Chuck Aiken is a 74 year old male that presented to the ER on 06/12 for severe abdominal pain. He began feeling burning pain accompanied by nausea that started 3-4 days before admission. Pt admitted 06/12 around 0500 for suspected acute pancreatitis complicated by gallstone involvement. No sign of necrosis or infection noted at time of admission. Today, 06/14 - Pt states that he was unable to sleep last night due to back pain. He has a history of back pain due to previous injuries. He denies any events overnight. Currently he reports no pain since hydromorphone 0.5 mg at 0630. Mild epigastric discomfort (2/10) felt on palpation to epigastric abdomen or while coughing/hiccuping . He mentioned needing to travel to [place] to help his sister in early July. He also mentioned a history of dry heaving that he has experienced off and on since 3 months ago. He last experienced the dry heaving this Monday and Monday (06/09 & 06/10). He wants to know what medication the doc gave him for it before. ROS: Denies fever, chills, night sweats, nausea, vomiting Reports mild epigastric abdominal pain. Denies chest tightness, chest pain, palpitations, shortness of breath Reports back pain along whole of spine Pt had an episode of Afib with RVR on 06/12 PM. He states that he has paroxsysmal Afib at baseline. Cardiology records requested. Current Medications Current Medications Current Medications: Current Medications Generic Name Dose Route Start Last Admin Trade Name Freq PRN Reason Stop Dose Admin Acetaminophen 650 mg 06/12/25 09:12 06/13/25 08:21 Acetaminophen 325 Mg Tablet PO 650 mg Q4HR PRN Administration Pain or Fever > 38C (100.4F) Albuterol 2.5 mg 06/12/25 05:05 Albuterol Neb 2.5 Mg/3 Ml INH Q4H PRN shortness of breath or wheezing Benzonatate 100 mg 06/12/25 05:09 Benzonatate 100 Mg Capsule PO TID PRN Cough Enoxaparin Sodium 40 mg 06/15/25 21:00 Enoxaparin 40 Mg/0.4 Ml Syringe SUBQ DAILY JERRICA Hydromorphone HCl 0.5 mg 06/12/25 09:34 06/14/25 06:30 Hydromorphone 0.5 Mg/0.5 Ml Syringe IVP 0.5 mg Q4H PRN Administration Severe Pain (Level 7-10) Lactated Ringer's 1,000 mls @ 150 mls/hr 06/13/25 16:00 06/14/25 05:38 Lr IV 150 mls/hr .[id number] JERRICA Administration Lactobacillus Rhamnosus 1 cap 06/12/25 09:00 06/13/25 08:22 Lactobacillus Rhamnosus Gg Capsule PO 1 cap DAILY JERRICA Administration Lorazepam 1 mg 06/12/25 17:10 Lorazepam 1 Mg Tablet PO Q1H PRN CIWA > 8 Protocol Losartan Potassium 100 mg 06/12/25 09:00 06/13/25 08:21 Losartan 50 Mg Tablet PO 100 mg DAILY JERRICA Administration Melatonin 3 mg 06/12/25 05:09 06/13/25 23:01 Melatonin 3 Mg Tablet PO 3 mg QPM PRN Administration sleep Metoprolol Succinate 50 mg 06/12/25 09:00 06/13/25 08:22 Metoprolol Succinate 50 Mg Tablet PO 50 mg DAILY JERRICA Administration Metoprolol Tartrate 5 mg 06/12/25 15:49 06/12/25 16:03 Metoprolol 5 Mg/5 Ml Vial IVP 5 mg Q6H PRN Administration HR holly >120 Multivitamins/Minerals 1 tab 06/12/25 08:00 06/13/25 08:22 Multivitamin W/Minerals Tablet PO 1 tab DAILYWM JERRICA Administration Nitroglycerin 0.4 mg 06/12/25 05:09 Nitroglycerin Sl 0.4 Mg Tablet SL Q5MIN PRN Chest Pain Ondansetron HCl 4 mg 06/12/25 05:05 Ondansetron Odt 4 Mg Tablet PO Q8H PRN nausea and vomiting Ondansetron HCl 4 mg 06/13/25 15:32 Ondansetron 4 Mg/2 Ml Vial IVP Q6HR PRN Nausea / Vomiting Pantoprazole Sodium 40 mg 06/12/25 07:00 06/14/25 06:27 Pantoprazole 40 Mg Tablet PO 40 mg Q24H JERRICA Administration Sodium Chloride 10 ml 06/13/25 15:32 Sodium Chloride Flush 0.9% 10 Ml Syringe IVP PRN PRN NEEDED PER PROVIDER ORDERS Sodium Chloride 10 ml 06/13/25 17:00 06/13/25 23:48 Sodium Chloride Flush 0.9% 10 Ml Syringe IVP Not Given 0100,0900,1700 [facility] Objective Vital Signs/Intake & Output Reviewed Vital Signs: Yes Vital Signs: Vital Signs x48h Temp Pulse Pulse Resp BP Pulse Ox 06/14/25 08:16 36.7 C 90 20 149/81 H 95 06/14/25 05:00 36.7 C 91 18 150/81 H 92 Intake & Output: Intake & Output 06/11/25 06/12/25 06/13/25 06/14/25 23:59 23:59 23:59 23:59 Intake Total 2621 / 2621 3950 / 3950 1000 / 1000 Output Total 250 / 250 300 / 300 Balance 2371 / 2371 3950 / 3950 700 / 700 Weight (kg) 114.4 kg 108 kg Objective General Appearance: positive No acute distress and Alert Eyes Bilateral: positive Normal inspection and No scleral icterus Respiratory: positive Chest non-tender, No respiratory distress and Breath sounds nml; negative Wheezes, Rales or Rhonchi Cardiovascular: positive Regular rate & rhythm, No murmur and No gallop; negative Friction rub Peripheral Pulses: 2+: Radial (R), 2+: Radial (L), 2+: Dorsalis pedis (R) and 2+: Dorsalis pedis (L) Abdomen: positive Nml bowel sounds, Tenderness (epigastric) and Hepatomegaly; negative No distention, Guarding or Rebound Back: positive Nml inspection (several scattered nevi) and Other (Tender to palpation around L1-L2, no erythema or ecchymosis) Skin: positive Color nml Extremities: positive No pedal edema Neurologic/Psychiatric: positive Oriented x3 and Mood/affect nml Lab Results 06/14/25 05:45 06/14/25 05:45 Other Labs: Lab Results x24hrs 06/14/25 Range/Units 05:45 WBC 12.3 H (4.8-10.8) x10^3/uL RBC 3.93 L (4.70-6.10) 10^6/uL Hgb 12.0 L (14.0-18.0) g/dL Hct 35.3 L (42.0-52.0) % MCV 89.8 (80.0-94.0) fL MCH 30.5 (27.0-31.0) pg MCHC 34.0 (32.0-36.0) g/dL RDW 18.7 H (12.0-15.0) % Plt Count 76 L (130-450) 10^3/uL MPV 11.5 H (7.4-11.4) fL Neut # (Auto) 9.9 H (1.5-6.6) 10^3/uL Lymph # (Auto) 0.8 L (1.5-3.5) 10^3/uL [place] # (Auto) 1.2 H (0.0-1.0) 10^3/uL Eos # (Auto) 0.2 (0.0-0.7) 10^3/uL Baso # (Auto) 0.1 (0.0-0.1) 10^3/uL Absolute Nucleated RBC 0.00 x10^3/uL Nucleated RBC % 0.0 /100WBC Sodium 136 (135-145) mmol/L Potassium 4.0 (3.5-4.5) mmol/L Chloride 104 (101-111) mmol/L Carbon Dioxide 28 (21-32) mmol/L Anion Gap 4.0 L (6-13) BUN 19 (6-20) mg/dL Creatinine 1.4 H (0.6-1.3) mg/dL Estimated GFR (MDRD) 50 L (>89) Glucose 94 (74-104) mg/dL Calcium 8.1 L (8.5-10.3) mg/dL Diagnostic Imaging Diagnostic Imaging Results: positive Prelim report reviewed and Final report reviewed Assessment/Plan Problem List (1) Pancreatitis: Impression: 06/12 AM - Pt admitted on 06/12 for 3-4 days of severe burning epigastric abdominal pain. Pt given 0.25 mg hydromorphone at 06:25 on day of admission. RN reported pt had a low grade fever of 38.4C, IV acetaminophen started at 09:31 on 06/12. US completed and review by radiologists. Radiologist impression: moderate suspicious for acute cholecystitis and hepatomegaly. Pain was 6/10. 06/12 AM MD increased hydromorphone dose to 0.5 mg for improved pain management and discontinued home meds (hydrochlorothiazide and furosemide) to maintain patient fluids. 06/12 PM - Fluid rate increased to 150mL/hr. Pt assessed for alcohol withdrawal symptoms 06/12 and given Lorazepam 1 mg and acetaminophen. Total bilirubin 3.8 (H), 3.6 (H), and 3.8 (H). Direct Bilirubin has decreased, Indirect Bilirubin has increased. AST and ALTs have gone down. 06/13 PM - ERCP completed around 13:30 06/13, with no complications. stent placed along common bile duct. 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 Stent to be removed by mid-August 2025. 06/14 Pt tolerating CBD stent well. LFTs continue to be elevated, but are down trending. Slow LFT changes expected due to ERCP recovery. - monitor Post-procedure Recovery - diet: started liquid diet. Progress to full diet. - continue administering fluids: LRs 150 mL/hr - discontinue hydromorphone 0.5 mg IV - continue monitoring vitals, IOs, and daily labs (CBC, CMP, Mg) - Likely post-op stay 2-3 days. (2) Atrial fibrillation with RVR: Impression: 06/12 PM - Patient developed Afib with RVR. Obtained rate control after 2 x metoprolol 5mg IV and 500 mL LR bolus. Pt reported having a history of paroxsymal Afib. No history documented in chart. Cardiology records requested. Pt has a history of hypertension, COPD, and alcohol abuse. - continue to telemonitor pt - continue metoprolol succinate 50 mg PO daily for rate control (3) Cholecystitis: Impression: Resolved 13:30 06/13. Cholecystitis suspected on 06/12 US. Plan for ERCP around 11:15 06/13 ERCP completed around 13:30 06/13, with no complications - no apparent cholecystitis (4) Elevated LFTs: Impression: LFTs continue to be down trending. - Continue daily monitoring - Recommend follow-up OP monitoring and US PRN.
[2025-06-14 09:29] LABS: ALT ALANINE AMINOTRANSFERASE 297.0 IU/L (10-60); AST ASPARTATE AMINOTRANSFERASE 301.0 IU/L (10-42)
[2025-06-14] MEDS: ATORVASTATIN 40 MG TABLET PO SCH (10:34)
--- NOTE | 2025-06-14 10:34 | PROVIDER PROGRESS NOTE ---
Subjective General Admit Date: 06/13/25 Procedure Date: 06/13/25 Post Op Days: 1 Procedure Performed: ERCP w/ sphincterotomy and stent placement Other Other Information/Narrative: States he is feeling well this morning, pain has continued to improve with no worsening after the procedure. He is feeling hungry and asking for food. Review of Systems Status of ROS: 10 or more systems reviewed and unremarkable except as noted in history and below Exam Exam Vital Signs: Vital Signs x48h Temp Pulse Pulse Resp BP Pulse Ox 06/14/25 08:16 36.7 C 90 20 149/81 H 95 06/14/25 05:00 36.7 C 91 18 150/81 H 92 Constitutional normal general appearance and no apparent distress HENMT normocephalic and head/scalp atraumatic Eyes conjunctivae normal and no scleral icterus Neck/C-Spine visual inspection normal Respiratory normal respiratory effort Cardiovascular normal heart rate noted and regular rhythm noted Gastrointestinal abdomen normal to inspection, abdomen soft to palpation and nontender to palpation Extremities normal to inspection Neurology GCS 15 Psychiatry cooperative and affect normal Skin skin color normal Impression/Plan Problem List (1) Pancreatitis: Plan: Unsure if his pancreatitis is caused by his alcohol use or his gallstones/sludge seen on imaging. If his bilirubin continues down will discuss more with the patient about cessation of his EtOH intake. If the feeling is that this is from his gallstones and not his EtOH use will consider cholecystectomy. If his bilirubin trends up will offer him and ERCP with possible stent placement to allow for biliary decompression while his pancreatitis resolves. Now s/p ERCP w/ sphincterotomy and stent placement on 06/13, doing well with no pain, asking for food. Cholangiogram demonstrated mild tapering of the CBD in the pancreas and a patent cystic duct. - Advance diet as tolerated - With stent in place does not need cholecystectomy this admission - Will arrange outpatient follow-up in 2-4 weeks to discuss cholecystectomy and stent removal - Rest of care per primary Surgery will sign off at this time, please reach out with questions and/or concerns. Plan discussed with primary team and the patient this AM. (2) Atrial fibrillation with RVR: (3) Cholecystitis: (4) Elevated LFTs:
[2025-06-14] MEDS: THIAMINE 100 MG TABLET PO SCH (11:47)
[2025-06-14] MEDS: oxyCODONE 5 MG TABLET PO PRN (12:35)
[2025-06-15 04:52] LABS: HCT - HEMATOCRIT 33.1 % (42.0-52.0); HGB - HEMOGLOBIN 11.4 g/dL (14.0-18.0); MEAN PLATELET VOLUME 12.5 fL (7.4-11.4); NRBC ABSOLUTE COUNT (AUTO) 0.00 x10^3/uL; NUCLEATED RED BLOOD CELLS AUTO 0.0 /100WBC; PLT - PLATELET COUNT 73 10^3/uL (130-450); RED CELL DISTRIBUTION WIDTH 19.1 % (12.0-15.0)
[2025-06-15 05:09] LABS: ALT ALANINE AMINOTRANSFERASE 219.0 IU/L (10-60); AST ASPARTATE AMINOTRANSFERASE 206.0 IU/L (10-42); BUN - BLOOD UREA NITROGEN 19.0 mg/dL (6-20); CARBON DIOXIDE - CO2 27.0 mmol/L (21-32); CREATININE 1.2 mg/dL (0.6-1.3); GFR - MDRD 59.0 (>89)
--- NOTE | 2025-06-15 08:47 | PROVIDER PROGRESS NOTE ---
Subjective Prog Note Date Prog Note Date: 06/14/25 Prog Note Time: 08:22 Subjective Pt reports feeling: Improved Subjective: 06/12 - Chuck Aiken is a 74 year old male that presented to the ER on 06/12 for severe abdominal pain. He began feeling burning pain accompanied by nausea that started 3-4 days before admission. Pt admitted 06/12 around 0500 for suspected acute pancreatitis complicated by gallstone involvement. No sign of necrosis or infection noted at time of admission. Pt had an episode of Afib with RVR on 06/12 PM. He states that he has paroxsysmal Afib at baseline. Cardiology records requested. Today, 06/15 - Pt states that he slept well last night, though he still has a bit of back pain. He has a history of back pain due to previous injuries from repetitive lifting at work. He denies any events overnight. Currently he reports no abdominal pain even on palpation. His pain is being managed by oxycodone 5 mg q4hrs PRN, last dose at 8:08. He is able to tolerate a regular diet saying that it feels good to eat again. ROS: Denies fever, chills, night sweats, nausea, vomiting Denies abdominal pain. Denies chest tightness, chest pain, palpitations, shortness of breath Reports lower back pain Reports dark, red colored urine Current Medications Current Medications Current Medications: Current Medications Generic Name Dose Route Start Last Admin Trade Name Freq PRN Reason Stop Dose Admin Acetaminophen 650 mg 06/12/25 09:12 06/13/25 08:21 Acetaminophen 325 Mg Tablet PO 650 mg Q4HR PRN Administration Pain or Fever > 38C (100.4F) Albuterol 2.5 mg 06/12/25 05:05 Albuterol Neb 2.5 Mg/3 Ml INH Q4H PRN shortness of breath or wheezing Atorvastatin Calcium 80 mg 06/14/25 10:00 06/15/25 08:08 Atorvastatin 40 Mg Tablet PO 80 mg DAILY JERRICA Administration Benzonatate 100 mg 06/12/25 05:09 Benzonatate 100 Mg Capsule PO TID PRN Cough Enoxaparin Sodium 40 mg 06/15/25 21:00 Enoxaparin 40 Mg/0.4 Ml Syringe SUBQ DAILY JERRICA Lactobacillus Rhamnosus 1 cap 06/12/25 09:00 06/15/25 08:08 Lactobacillus Rhamnosus Gg Capsule PO 1 cap DAILY JERRICA Administration Lorazepam 1 mg 06/12/25 17:10 Lorazepam 1 Mg Tablet PO Q1H PRN CIWA > 8 Protocol Losartan Potassium 100 mg 06/12/25 09:00 06/15/25 08:08 Losartan 50 Mg Tablet PO 100 mg DAILY JERRICA Administration Melatonin 3 mg 06/12/25 05:09 06/13/25 23:01 Melatonin 3 Mg Tablet PO 3 mg QPM PRN Administration sleep Metoprolol Succinate 50 mg 06/12/25 09:00 06/15/25 08:08 Metoprolol Succinate 50 Mg Tablet PO 50 mg DAILY JERRICA Administration Metoprolol Tartrate 5 mg 06/12/25 15:49 06/12/25 16:03 Metoprolol 5 Mg/5 Ml Vial IVP 5 mg Q6H PRN Administration HR holly >120 Multivitamins/Minerals 1 tab 06/12/25 08:00 06/15/25 08:07 Multivitamin W/Minerals Tablet PO 1 tab DAILYWM JERRICA Administration Nitroglycerin 0.4 mg 06/12/25 05:09 Nitroglycerin Sl 0.4 Mg Tablet SL Q5MIN PRN Chest Pain Ondansetron HCl 4 mg 06/12/25 05:05 Ondansetron Odt 4 Mg Tablet PO Q8H PRN nausea and vomiting Ondansetron HCl 4 mg 06/13/25 15:32 Ondansetron 4 Mg/2 Ml Vial IVP Q6HR PRN Nausea / Vomiting Oxycodone HCl 5 mg 06/14/25 10:24 06/15/25 08:08 Oxycodone 5 Mg Tablet PO 5 mg Q4HR PRN Administration Moderate Pain (Level 4-6) Pantoprazole Sodium 40 mg 06/12/25 07:00 06/15/25 06:07 Pantoprazole 40 Mg Tablet PO 40 mg Q24H JERRICA Administration Sertraline HCl 100 mg 06/15/25 09:00 Sertraline 50 Mg Tablet PO DAILY JERRICA Sodium Chloride 10 ml 06/13/25 15:32 Sodium Chloride Flush 0.9% 10 Ml Syringe IVP PRN PRN NEEDED PER PROVIDER ORDERS Sodium Chloride 10 ml 06/13/25 17:00 06/15/25 08:10 Sodium Chloride Flush 0.9% 10 Ml Syringe IVP Not Given 0100,0900,1700 [facility] Thiamine HCl 100 mg 06/14/25 11:00 06/15/25 08:08 Thiamine 100 Mg Tablet PO 100 mg DAILY JERRICA Administration Objective Vital Signs/Intake & Output Reviewed Vital Signs: Yes Vital Signs: Vital Signs x48h Temp Pulse Resp BP Pulse Ox 06/15/25 06:09 140/81 H 06/15/25 05:00 36.5 C 98 19 152/86 H 92 06/15/25 01:49 36.6 C 92 17 139/85 H 93 Intake & Output: Intake & Output 06/12/25 06/13/25 06/14/25 06/15/25 23:59 23:59 23:59 23:59 Intake Total 2621 / 2621 3950 / 3950 4061 / 4061 1497 / 1497 Output Total 250 / 250 300 / 300 Balance 2371 / 2371 3950 / 3950 3761 / 3761 1497 / 1497 Weight (kg) 108 kg Objective General Appearance: positive No acute distress and Alert Eyes Bilateral: positive PERRL and Conjunctivae nml; negative Normal inspection or No scleral icterus Respiratory: positive Chest non-tender, No respiratory distress and Breath sounds nml; negative Wheezes, Rales or Rhonchi Cardiovascular: positive Regular rate & rhythm, No murmur and No gallop; negative Friction rub Peripheral Pulses: 2+: Radial (R), 2+: Radial (L), 2+: Dorsalis pedis (R) and 2+: Dorsalis pedis (L) Abdomen: positive Nml bowel sounds and Hepatomegaly; negative No distention, Tenderness (epigastric), Guarding or Rebound Back: positive Nml inspection (several scattered nevi) and Other (Tender to palpation around L1-L2, no erythema or ecchymosis) Skin: positive Color nml (No jaundice) Extremities: positive No pedal edema Neurologic/Psychiatric: positive Oriented x3 and Mood/affect nml Lab Results 06/15/25 04:07 06/15/25 04:07 Other Labs: Lab Results x24hrs 06/15/25 06/15/25 06/14/25 Range/Units 04:07 04:07 05:45 WBC 9.5 (4.8-10.8) x10^3/uL RBC 3.67 L (4.70-6.10) 10^6/uL Hgb 11.4 L (14.0-18.0) g/dL Hct 33.1 L (42.0-52.0) % MCV 90.2 (80.0-94.0) fL MCH 31.1 H (27.0-31.0) pg MCHC 34.4 (32.0-36.0) g/dL RDW 19.1 H (12.0-15.0) % Plt Count 73 L (130-450) 10^3/uL MPV 12.5 H (7.4-11.4) fL Neut # (Auto) 7.1 H (1.5-6.6) 10^3/uL Lymph # (Auto) 1.0 L (1.5-3.5) 10^3/uL Ocean # (Auto) 1.1 H (0.0-1.0) 10^3/uL Eos # (Auto) 0.2 (0.0-0.7) 10^3/uL Baso # (Auto) 0.0 (0.0-0.1) 10^3/uL Absolute Nucleated RBC 0.00 x10^3/uL Nucleated RBC % 0.0 /100WBC Sodium 134 L (135-145) mmol/L Potassium 3.8 (3.5-4.5) mmol/L Chloride 103 (101-111) mmol/L Carbon Dioxide 27 (21-32) mmol/L Anion Gap 4.0 L (6-13) BUN 19 (6-20) mg/dL Creatinine 1.2 (0.6-1.3) mg/dL Estimated GFR (MDRD) 59 L (>89) Glucose 116 H (74-104) mg/dL Calcium 8.2 L (8.5-10.3) mg/dL Total Bilirubin 6.8 H 7.1 H 3.7 H (0.2-1.0) mg/dL Direct Bilirubin 4.71 H 2.42 H (0.03-0.18) mg/dL Indirect Bilirubin 1.3 mg/dL AST 206 H 301 H (10-42) IU/L ALT 219 H 297 H (10-60) IU/L Alkaline Phosphatase 246 H (42-121) IU/L Total Protein 5.4 L (6.4-8.9) g/dL Albumin 2.4 L (3.2-5.5) g/dL Globulin 3.0 (2.1-4.2) g/dL Albumin/Globulin Ratio 0.8 L (1.0-2.2) Diagnostic Imaging Diagnostic Imaging Results: positive Prelim report reviewed and Final report reviewed Assessment/Plan Problem List (1) Pancreatitis: Impression: 06/12 AM - Pt admitted on 06/12 for 3-4 days of severe burning epigastric abdominal pain. Pt given 0.25 mg hydromorphone at 06:25 on day of admission. RN reported pt had a low grade fever of 38.4C, IV acetaminophen started at 09:31 on 06/12. US completed and review by radiologists. Radiologist impression: moderate suspicious for acute cholecystitis and hepatomegaly. Pain was 6/10. 06/12 AM MD increased hydromorphone dose to 0.5 mg for improved pain management and discontinued home meds (hydrochlorothiazide and furosemide) to maintain patient fluids. 06/12 PM - Fluid rate increased to 150mL/hr. Total bilirubin 3.8 (H), 3.6 (H), and 3.8 (H). Direct Bilirubin has decreased, Indirect Bilirubin has increased. AST and ALTs have gone down. 06/13 PM - ERCP completed around 13:30 06/13, with no complications. stent placed along common bile duct. 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 Stent to be removed by mid-August 2025. 06/14 - Pt tolerating CBD stent well. LFTs continue to be elevated, but are down trending. Slow LFT changes expected due to ERCP recovery. 06/15 - Pt tolerating CBD stent well. Pain is well managed on oxycodone 5 mg PO q4hrs PRN. ALT and AST continue to down trend, but bilirubin has risen (7.1, 6.8). Sclera icterus visible on physical exam. He is able to tolerate a regular diet. IV fluids discontinued. - discuss bilirubin increase with surgical team and determine if it is within the expected post-ERCP range - monitor Post-procedure Recovery - diet: regular diet - continue oxycodone 5 mg PO q4hrs PRN - continue monitoring vitals, IOs, and daily labs (CBC, CMP, Mg) - Possibly able to discharge today pending surgical decision. (2) Atrial fibrillation with RVR: Impression: Rate Controlled, 06/12 PM - Patient developed Afib with RVR. Obtained rate control after 2 x metoprolol 5mg IV and 500 mL LR bolus. Pt reported having a history of paroxsymal Afib. No history documented in chart. Cardiology records requested. Pt has a history of hypertension, COPD, and alcohol abuse. - continue to telemonitor pt - continue metoprolol succinate 50 mg PO daily for rate control (3) Cholecystitis: Impression: Resolved 13:06/13. Cholecystitis suspected on 06/12 US. Plan for ERCP around 11:15 06/13 ERCP completed around :30 06/13, with no complications - no apparent cholecystitis (4) Elevated LFTs: Impression: AST and ALT continue to be down trending. Total bilirubin has risen (7.1, 6.8). Some increase in bilirubin is expected post-ERCP. - Continue daily monitoring - Recommend follow-up OP monitoring and US PRN. (5) Alcohol abuse: Impression: 06/12 PM - Pt assessed for alcohol withdrawal symptoms 06/12 and given Lorazepam 1 mg and acetaminophen. 06/13 - ERCP showed no signs of gallstone involvement. Pancreatitis suspected to be related to patient's history of alcohol abuse. - Thiamine 100 mg PO daily - Discuss alcohol cessation - Recommend follow-up w/ OP provider
[2025-06-15] MEDS: SERTRALINE 50 MG TABLET PO SCH (09:38)
[2025-06-15 14:27] VITALS: BP 145/83; TEMP 97.3; O2SAT 95
--- NOTE | 2025-06-15 16:34 | Discharge Summary ---
"<Statement entered by Yoan Valentin DNP - 06/15/25 17:29> Patient was seen and examined by me with a separate encounter after being seen by APRIL student. I reviewed the student's documentation including patient history, physical examination, laboratory, imaging, clinical assessment and treatment plan. I have discussed the management of the patient with the student, and with the patient. There are no changes. This patient was admitted for pancreatitis. Underwent ERCP which showed no gallbladder involvement but stent was placed. Patient is tolerating diet, he is discharging home to follow-up with his PCP and with general surgery. He is high risk for bleeding with anticoagulant use, so I have not placed him on anticoagulant. I suspect that his liver function will continue to improve, and if he reduces his alcohol use his bleeding risk will go down enough that he may safely start anticoagulant. He is rate controlled with metoprolol Discharge Summary Admit Date: 06/12/25 Discharge Date: 06/15/25 DIAGNOSES Discharge Diagnoses with Status of Each Condition: Acute Pancreatitis ERCP performed on patient without complications. CBD stent placed. Resolved. Atrial Fibrillation Rate controlled with metoprolol Transaminitis Down-trending Acute kidney injury superimposed on CKD CHELE resolved. Abdominal Pain Secondary to Pancreatitis. Resolved HPI History of Present Illness: Pt with progressive abd pain + epigastric burning x 3-4 days. no trauma. some retching / nausea but denies vomiting. little po intake or appetite. did have episode of loose stools, without blood. no dysuria or hematuria. no falls. no chest pain. sob. pt does take alieve nearly daily but never exceeds the recommended dosage. he is on statin. drinks about 1 beer daily. denies h/o hospitalized withdrawal but does take ativan as needed. h/o ckd. CONSULTS | PROCEDURES Consultations: General Surgery Procedures: ERCP HOSPITAL COURSE Hospital Course: Patient presented to ER with severe epigastric abdominal pain and burning and was admitted for acute pancreatitis. Patient given IV fluids and pain management with hydromorphone. Initial imagining showed a distended gallbladder and hepatomegaly. He was scheduled for a ERCP to remove any possible gallstones and alleviate stress on the pancreas. The first day of admission Chuck developed Afib with RVR, suspected secondary to alcohol withdrawal. He was given metoprolol and a LR fluid bolus for rate control and Lorazepam to treat the alcohol withdrawal symptoms. He stated that he has a history of paroxsymal Afib. [employer] records were requested, but never obtained. The second day of admission the ERCP was performed and a CBD stent placed without complications. There were no sign of gallstone involvement and no sign of cholecystitis. Acute pancreatitis likely due to chronic alcohol abuse. Post- procedure pain managed with oxycodone PRN. Pt restarted on liquid diet and successfully progressed to regular diet. ALLERGIES Allergies Allergy/AdvReac Type Severity Reaction Status Date / Time bee venom protein (honey bee) Allergy Severe Anaphylaxis Verified 03/13/25 14:03 Penicillins Allergy Severe Itching Verified 03/13/25 14:03 sulfamethoxazole (From Allergy Severe Hives Verified 03/13/25 14:03 Bactrim) trimethoprim (From Bactrim) Allergy Severe Hives Verified 03/13/25 14:03 MEDICATIONS Ambulatory Orders Medication Instructions Recorded Confirmed albuterol sulfate 90 mcg/actuation 2 puff inhalation Q ID PRN 07/20/24 06/11/25 aerosol inhaler (Ventolin HFA) shortness of breath or wheezing bpjacuri-oc-wihno 300 mcg-K 60 1 tab PO QDAY #30 tabs 07/20/24 06/11/25 mcg-lycop 600 mcg-lutein 300 mcg tablet (Centrum Silver Ultra Men's) albuterol sulfate 2.5 mg/3 mL 2.5 mg inhalation Q4H OH N 08/05/24 06/11/25 (0.083 %) solution for nebulization shortness of breat h or wheezing irbesartan 300 1 tab PO QDAY #90 tabs 08/2206/11/25 mg-hydrochlorothiazide 12.5 mg tablet epinephrine 0.3 mg/0.3 mL 0.3 mg (0.3 mL) IM ONCE PRN 11/26/24 06/11/25 injection, auto-injector (EpiPen anaphylaxis #2 ea 2-Tobias) furosemide 20 mg tablet 20 mg PO QDAY #90 tabs 01/1706/11/25 pantoprazole 40 mg tablet,delayed 40 mg PO QDAY #90 ta bs 02/10/25 06/11/25 release atorvastatin 80 mg tablet (Lipitor) 80 mg PO QDAY #90 tabs 02/17/25 06/11/25 metoprolol succinate 50 mg 50 mg PO QDAY #90 tabs 02/1906/11/25 tablet,extended release 24 hr naproxen sodium 220 mg capsule 220 mg PO BID PRN pain 06/12/25 06/12/25 (Aleve) sertraline 100 mg tablet 100 mg PO DAILY 06/12/25 thiamine mononitrate (vit B1) 100 100 mg PO DAILY 30 d ays #30 tabs 06/15/25 mg tablet (Vitamin B-1 (mononitrate)) PHYSICAL EXAM AT DISCHARGE Vital Signs: Vital Signs x48h Temp Pulse Resp BP Pulse Ox 06/15/25 13:30 36.3 C L 92 22 145/83 H 95 06/15/25 13:30 36.3 C L 92 22 145/83 H 95 General Appearance: positive No acute distress and Alert Eyes Bilateral: positive Normal inspection, PERRL and Conjunctivae nml; negative No scleral icterus Respiratory: positive No respiratory distress; negative Wheezes, Rales or Rhonchi Cardiovascular: positive Regular rate & rhythm, No murmur and No gallop; negative Friction rub Peripheral Pulses: positive 2+ Abdomen: positive Non-tender, Nml bowel sounds and Hepatomegaly; negative No distention, Tenderness, Guarding or Rebound Back: positive Nml inspection (several scattered nevi) and Other (Tender to palpation around L1-L2, no erythema or ecchymosis) Skin: positive Color nml Extremities: positive No pedal edema Neurologic/Psychiatric: positive Oriented x3 and Mood/affect nml LABS 06/15/25 04:07 06/15/25 04:07 DIAGNOSTIC IMAGING Diagnostic Imaging Results: Final report reviewed FOLLOW UP Follow Up: with PCP TIME SPENT Time Spent in Discharge (Minutes): 38 Discharge Plan Discharge Patient Disposition: Home, Self Care Condition: Stable Prescriptions: New thiamine mononitrate (vit B1) [Vitamin B-1 (mononitrate)] 100 mg Tablet 100 mg PO DAILY 30 Days Qty: 30 0RF Continued irbesartan-hydrochlorothiazide 300-12.5 mg tablet 1 tab PO QDAY Qty: 90 3RF pantoprazole 40 mg tablet,delayed release (DR/EC) 40 mg PO QDAY Qty: 90 1RF albuterol sulfate 2.5 mg /3 mL (0.083 %) solution for nebulization 2.5 mg inhalation Q4H PRN (Reason: shortness of breath or wheezing) Patient Comments: USE 1 VIAL PER NEBULIZER EVERY 4 HOURS NEEDED FOR COUGH WHEEZE OR SHORTNESS OF BREATH sertraline 100 mg tablet 100 mg PO DAILY naproxen sodium [Aleve] 220 mg capsule 220 mg PO BID PRN (Reason: pain) Patient Comments: pt stated he takes 1 per day normally, but lately has increased to 2 tabs per day for pain. 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 allergic to bees atorvastatin [Lipitor] 80 mg tablet 80 mg PO QDAY Qty: 90 1RF metoprolol succinate 50 mg tablet extended release 24 hr 50 mg PO QDAY Qty: 90 1RF Rx Instructions: Take 1 tablet daily Activity Restrictions: No Restrictions Diet: Regular Health Concerns: You were admitted with acute alcoholic pancreatitis, complicated by suspected biliary obstruction requiring ERCP.Post-procedure, no evidence of severe complications.History of atrial fibrillation, managed with metoprolol for rate control.Anticoagulation withheld due to elevated bleeding risk. You have a high risk of bleeding from anticoagulant given your age, alcohol use, Poor liver function. I anticipate your liver function will improve as this acute episode resolves. I would encourage you to quit drinking. When your risk of bleeding is lower, your PCP may recommend being placed on anticoagulant to reduce your risk of stroke from atrial fibrillation Discharge Instructions: Diet:Start with small, low-fat meals, focusing on carbohydrates and proteins. Gradually increase meal size over 36 days as tolerated. Avoid alcohol completely to prevent recurrence of pancreatitis. Activity:Resume normal activities as tolerated. Avoid strenuous activity until fully recovered. Medications: Continue metoprolol as prescribed for atrial fibrillation rate control. No anticoagulation at this time due to bleeding risk; Please address this with your PCP Follow-up: Your follow-up with general surgery as planned. Please also follow-up with your PCP Monitor for signs of recurrent pancreatitis (abdominal pain, nausea, vomiting) or complications (fever, jaundice, chest pain, palpitations). Post-ERCP Care: Watch for symptoms of post-ERCP complications: worsening abdominal pain, fever, chills, jaundice, or signs of bleeding. Seek immediate medical attention if these occur. Alcohol Abstinence: Absolute abstinence from alcohol is critical to prevent recurrence and progression of pancreatitis. Atrial Fibrillation: Continue rate control therapy. Anticoagulation may be reconsidered if bleeding risk decreases; risk-benefit assessment should be ongoing. Monitor for palpitations, dizziness, or syncope; report these symptoms promptly. When to Seek Immediate Care: Severe or persistent abdominal pain Vomiting or inability to tolerate oral intake Fever, chills, or jaundice Chest pain, shortness of breath, or new palpitations Signs of bleeding (black stools, vomiting blood, easy bruising) Additional Instructions: Avoid NSAIDs unless specifically prescribed for post-ERCP prophylaxis, due to bleeding risk. 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
--- NOTE | 2025-06-15 20:56 | XRAY Report ---
PROCEDURE: [place] OR C-Arm Procedure INDICATIONS: ERCP TECHNIQUE: Intraoperative fluoroscopic guidance was provided and low-resolution fluoroscopic spot films were obtained. COMPARISON: None. FINDINGS: Low-resolution intraoperative spot films show ERCP in progress with placement of CBD stent IMPRESSION: Fluoroscopic guidance. Reviewed by: Wood Mina MD on 06/15/2025 7:53 PM AKANETTE Approved by: Wood Mina MD on 06/15/2025 7:53 PM AKDT Station ID: [id number]
[2025-06-15] MEDS ORDERED: ENOXAPARIN 40 MG/0.4 ML SYRINGE SUBQ SCH (21:00)
== END 2025-06-15 13:55 | disposition home or self-care (01) | DRG 439 ==
LOC: ED 23:39 → MS3 23:39 → MS2 06-13 15:03
PROVIDERS: ADMIT Student in an Organized Health Care Education/Training Program; ATTEND Student in an Organized Health Care Education/Training Program
DX: N18.9 Chronic kidney disease, unspecified; R79.89 Other specified abnormal findings of blood chemistry; J44.9 Chronic obstructive pulmonary disease, unspecified; Z60.2 Problems related to living alone; E80.6 Other disorders of bilirubin metabolism; K85.90 Acute pancreatitis without necrosis or infection, unspecified; R16.0 Hepatomegaly, not elsewhere classified; K21.9 Gastro-esophageal reflux disease without esophagitis; M54.9 Dorsalgia, unspecified; K85.20 Alcohol induced acute pancreatitis without necrosis or infection; I48.0 Paroxysmal atrial fibrillation; K83.8 Other specified diseases of biliary tract; F10.139 Alcohol abuse with withdrawal, unspecified; I12.9 Hypertensive chronic kidney disease with stage 1 through stage 4 chronic kidney disease, or unspecified chronic kidney disease; N17.9 Acute kidney failure, unspecified; K80.20 Calculus of gallbladder without cholecystitis without obstruction; Z91.81 History of falling